=== PATIENT | female | born 1960 | race African-American/Black ===

== ENCOUNTER 2020-06-11 15:06 | Observation (INO) | payer MEDICARE, SELFPAY ==
[2020-06-11] VITALS (15 sets, daily range): BP systolic 143–189; BP diastolic 87–107; PULSE 79–90; RESP 14–18; TEMP 36.2–37.2; O2SAT 96–100; BMI 27.6; BMI 45.7
--- NOTE | 2020-06-11 15:20 | EKG12_ITS ---
Test Reason : CP ADMISSION Blood Pressure : / mmHG Vent. Rate : 083 BPM Atrial Rate : 083 BPM P-R Int : 294 ms QRS Dur : 088 ms QT Int : 420 ms P-R-T Axes : 062 -46 053 degrees QTc Int : 493 ms Sinus rhythm with 1st degree A-V block Left axis deviation Prolonged QT Poor R- wave progression Abnormal ECG Confirmed by TG POST, KATHE ([id number]), online editor SUMMER STEVENS ([id number]) on 06/13/2020 9:01:30 AM Referred By: Confirmed By:KATHE MAS MD
--- NOTE | 2020-06-11 15:20 | ED.VIS.GEN ---
History of Present Illness Chief Complaint: Chest Pain Informant: Patient Narrative: 59 year-old female presents with concern for chest pain. States it began approximately 4 hours ago. States it awoke her from sleep with a coughing fit. States that she has not been coughing until this time. States that she was then laying there and had severe nausea and vomited twice. States that she continues to have this burning pain in her center of her chest. Admits to mild shortness of breath. Denies any fever, chills, cough, abdominal pain, urinary symptoms prior to this morning. Is a current smoker. Past Medical History - Allergies and Home Meds Allergies/Adverse Reactions: Allergies codeine Allergy (Verified 08/15/13 11:47) Itching Primary Care Physician: Rach Gaona MD [Primary Care Provider] - Smoking Status: Current every day smoker Review of Systems General: Denies: Chills, Fever, Sweats Eyes: Denies: Visual changes - bilaterally, Diplopia ENT: Denies: Rhinorrhea, Sore throat Cardiovascular: Reports: Chest pain. Denies: Palpitations Respiratory: Reports: Dyspnea. Denies: Cough, Dyspnea on exertion Gastrointestinal: Denies: Abdominal pain, Nausea, Vomiting, Diarrhea, Melena, Hematochezia Genitourinary: Denies: Dysuria, Hematuria, Frequency Musculoskeletal: Denies: Back pain, Extremity Pain Skin: Denies: Rash, Wounds Neurological: Denies: Headache, Weakness, Numbness Physical Exam Inital Vital Signs reviewed: Yes General: Well nourished, Well developed, No Acute Distress Head: Normocephalic, Atraumatic Eyes: Perrl, EOMI ENT: Moist mucous membranes, No rhinorrhea Neck: Supple, Nontender Cardiovascular: Regular rate, Regular rhythm, No murmurs Respiratory: No distress, CTA bilaterally, Chest nontender Abdomen: Soft, Nontender, Nondistended, Normal bowel sounds Back: Nontender, Normal Inspection Extremities: Nontender, No edema Skin: Normal color, No rash Neurological: Alert, Oriented x3, Cranial nerves II-XII grossly intact, Normal Strength, Normal Sensation Psychological: Normal affect, Normal Mood Diagnostic/Tx/Re-eval Chest X-Ray - ED: 1 View, Read by ED Physician, Read by Radiologist, Cardiomegaly Clinical Impression(s) from Imaging Studies Chest X-Ray 06/11/20 15:35 IMPRESSION: Borderline cardiomegaly. Electronically Signed: Lucius Cohen MD at 15:53 EST , Service support , Laboratory Data 06/11/20 06/11/20 15:25 15:25 WBC 7.5 RBC 4.79 Hgb 12.4 Hct 39.4 MCV 82.3 MCH 25.9 L MCHC 31.5 L RDW Std Deviation 42.0 RDW Coeff of Ross 14.1 Plt Count 310 MPV 8.8 Immature Gran % (Auto) 0.100 Neut % (Auto) 35.5 L Lymph % (Auto) 52.9 H [place] % (Auto) 7.5 Eos % (Auto) 3.6 Baso % (Auto) 0.4 Absolute Neuts (auto) 2.7 Absolute Lymphs (auto) 3.97 Nucleated RBC % 0 Sodium 138 Potassium 3.1 L Chloride 104 Carbon Dioxide 30.0 Anion Gap 4 L BUN 15 Creatinine 0.94 Estim Creat Clear Calc 50.97 Est GFR (MDRD) Af Amer 78 Est GFR (MDRD) Non-Af 64 BUN/Creatinine Ratio 15.9 Glucose 137 H Calcium 8.9 Troponin I < 0.015 - Rhythm Strip Rhythm Strip: Sinus Rhythm Rate: 84 Ectopy: None - EKG Initial EKG Interpretation: Sinus Rhythm - Normal sinus rhythm at 84 bpm. First-degree AV block with a VT interval of 266 ms. QTC of 486 ms. No evidence of acute ischemia. - Medical Decision Making Patient appears well and nontoxic. EKG shows no significant ischemia just some nonspecific ST changes. Initial troponin negative. Chest x-ray shows mild cardiomegaly which was interpreted by myself. Radiology concurs. Patient was given aspirin as well as nitroglycerin. The nitroglycerin did not resolve the patient's chest pain. Given the patient's age as well as comorbidities she will be admitted for further treatment and evaluation. Patient stable at time of admission. Impression: 1. Chest pain ED Disposition - Plan for ED Patient: Disposition: Acute Care Hospital [facility] Referrals: Rach Gaona MD [Primary Care Provider] -
--- NOTE | 2020-06-11 15:35 | RAD_ITS ---
STUDY: X-RAY CHEST REASON FOR EXAM: Female, 59 years old. Epigastric chest pain after coughing -- increased fatigue and sob TECHNIQUE: Single AP portable view of the chest. COMPARISON: None. FINDINGS: EKG electrodes are seen. The lungs are clear and expanded. There is no demonstrated pleural abnormality. There is borderline cardiomegaly. Normal mediastinum and dori. Normal visualized pulmonary arteries. Normal visualized aortic arch and descending thoracic aorta. Normal visualized thoracic spine. Normal visualized ribs, clavicles, and shoulders. There is no demonstrated abnormality of the visualized soft tissue structures of the upper abdomen. RAD/Chest 1 View (Portable) IMPRESSION: Borderline cardiomegaly. Electronically Signed: Lucius Cohen MD at 15:53 EST , Service support ,
[2020-06-11 15:45] LABS: Absolute Lymphocyte Count 3.97 X10^3/uL (0.83-4.51); Absolute Neutrophil Count 2.7 X10^3/uL (2.0-7.7); Basophil# 0.03 X10^3/uL; Basophil% 0.4 % (0-1); Eosinophil# 0.27 X10^3/uL; Eosinophils% 3.6 % (0-5); Hematocrit 39.4 % (37-47); Hemoglobin 12.4 g/dL (12.0-15.0); Lymphocyte # 3.97 X10^3/ul (4.0); Lymphocyte % 52.9 % (19-41); Mean Corp Hgb Conc 31.5 g/dL (32-36); Mean Corpuscular Hgb 25.9 pg (27.0-32.0); Mean Corpuscular Volume 82.3 fL (81-99); Mean Platelet Vol. 8.8 fl (6.2-12.0); Monocyte# 0.56 X10^3/uL; Monocyte% 7.5 % (0-10); NRBC Flagged by Analyzer 0 % (0-5); Neutrophil # 2.67 X10^3/uL (2.7-7.7); Neutrophil % 35.5 % (47-70); Platelet Count 310 K/mm3 (150-450); RBC Distribution Width CV 14.1 % (11.6-14.6); Red Blood Count 4.79 M/mm3 (4.2-5.4); White Blood Count 7.5 K/mm3 (4.4-11.0)
[2020-06-11 15:57] LABS: Anion Gap 4 (5-15); BUN 15 mg/dL (7-18); BUN/Creat Ratio 15.9 RATIO (10-20); Calcium,Total 8.9 mg/dL (8.5-10.1); Chloride 104 mmol/L (98-107); Creatinine, Serum 0.94 mg/dL (0.55-1.02); EST Glomerular Filtration Rate 64 mL/min (>60); Est Glom Filt Rate - Afr Amer 78 mL/min (>60); Estimated Creatinine Clearance 50.97 ml/min; Glucose 137 mg/dL (74-106); Potassium 3.1 mmol/L (3.5-5.1); Sodium Level 138 mmol/L (136-145)
[2020-06-11] MEDS: Nitroglycerin SL (ED/IMG/CATH) 0.4 MG TABLET SUBLINGUAL ×3 (16:06→16:19)
[2020-06-11] MEDS: Aspirin 81 MG TAB.CHEW 324 MG PO (16:06)
--- NOTE | 2020-06-11 16:48 | HP.PCM_ITS ---
Problem List (1) Atypical chest pain Status: Acute (2) Hypertension Status: Chronic (3) Anxiety and depression Status: Chronic (4) Chronic back pain Status: Chronic (5) Hiatus hernia Status: Chronic History of Present Illness Date of Admission: 06/11/20 Chief Complaint: Chest pain The patient is a 59 year old F with history of hypertension came to ED with chest pain. This started with bout of cough but woke her up in the morning and then she felt nauseated and vomited clear gastric content. After that, she had burning chest pain from epigastrium, retrosternal and mild shortness of breath. She denies history of precipitating, exacerbating or relieving factors. Pain was localized with no radiation. In ED, triage vitals shows uncontrolled hypertension, blood pressure 183/105, heart rate 86/min. No hypoxia or tachypnea. Chest x-ray shows mild cardiomegaly. EKG normal sinus rhythm with first-degree AV block, LAD, QTC 486 ms. Previous EKG was in January 2010 showed sinus rhythm with QTC 471 ms. Rapid SARS-CoV-2 antigen negative. Patient denies previous history of coronary artery disease, cardiac stent. She had a stress test many years ago and verbally negative as per patient. She also had EGD and colonoscopy about 5 years ago and was told she had hiatus hernia. Past Medical History Past Medical History (Chronic Problems): Chronic Problems Hypertension (Chronic) Anxiety and depression (Chronic) Chronic back pain (Chronic) Hiatus hernia (Chronic) Allergies codeine Allergy (Verified 08/15/13 11:47) Itching Home Medications: Ambulatory Orders Medication Instructions Recorded Amitriptyline HCl [Elavil] 50 mg PO DAILY 08/15/13 Amlodipine [Norvasc] 10 mg PO DAILY 08/15/13 Aspirin [Aspirin, Baby] 81 mg PO DAILY@0800 08/15/13 Biotin 300 mcg PO DAILY 08/15/13 Buspirone HCl [Buspar] 20 mg PO DAILY 08/15/13 Clonazepam [Klonopin] 1 mg PO QHS PRN PRN 08/15/13 Cyanocobalamin [Vitamin B12] 1,000 mcg PO DAILY@0800 08/15/13 Diclofenac Sodium [Voltaren] 100 gm TP PRN PRN 08/15/13 Duloxetine Hcl [Cymbalta] 20 mg PO DAILY 08/15/13 Estradiol [Estrace] 2 mg PO DAILY 08/15/13 Gabapentin [Neurontin] 600 mg PO TIDCM 08/15/13 Meloxicam [Mobic] 15 mg PO DAILY 08/15/13 Metoprolol Tartrate [Lopressor 12.5 mg PO DAILY 08/15/13 (Beta Josie)] Montelukast [Singulair] 10 mg PO DAILY 08/15/13 Omeprazole [Prilosec] 20 mg PO DAILY 08/15/13 Oxycodone HCl/Acetaminophen 1 - 2 tablet PO Q4H PRN PRN 08/15/13 [Percocet 10-325 mg Tablet] Tizanidine HCl [Zanaflex] 4 mg PO Q6H 08/15/13 Cephalexin [Keflex] 500 mg PO Q12 06/11/20 Doxycycline 100 mg PO TID 06/11/20 Sertraline HCl [Zoloft] 100 mg PO QHS 06/11/20 Smoking Status: Current every day smoker Review of Systems Constitutional: Denies: Chills, Fever, Weight Change HEENT: Denies: Head Aches, Sinus Congestion, Sinus Drainage Cardiovascular: Reports: Chest Pain. Denies: Palpitations Respiratory: Reports: Cough, Shortness of Breath. Denies: Shortness of breath at rest, Sputum production Gastrointestinal: Reports: Abdominal Pain - Mild epigastric abdominal pain, Nausea, Vomiting. Denies: Constipation, Diarrhea, Hematemesis, Hematochezia, Melena Genitourinary: Denies: Dysuria, Frequency, Hematuria, Hesitancy Musculoskeletal: Denies: Joint Pain, Joint Tenderness Skin: Denies: Rash, Wounds Neurological: Denies: Numbness, Tingling, Focal weakness Psychiatric: Reports: Anxiety, Depression. Denies: Homicidal Ideations, Suicidal Ideations Hematologic/ Lymphatic: Denies: Easy Bruising, Easy Bleeding VTE Information - Inpt Only VTE Present on Admission: No VTE Mechan Device Prophylaxis: None VTE Pharm Prophylaxis ordered?: Yes Objective: Physical exam General: Alert, Oriented x3, Cooperative HEENT: Atraumatic, PERRLA, EOMI, Normocephalic Oral: No Gingival or Mucosal Lesions/ Ulcerations Neck: Supple, No JVD, Negative Carotid Bruits Lungs: Air entry diminished in bilateral lung bases. No crepitation/rhonchi Cardiovascular: Regular rate, Regular Rhythm, Normal S1, Normal S2, No murmurs Abdomen: Mild deep tenderness in epigastric. Bowel Sounds Present, Soft, Non- Distended : No renal angle tenderness. No suprapubic tenderness. Extremities: No edema, Capillary Refill Less than 3 Seconds Skin: No rashes, No breakdown Musculoskeletal: No Tenderness to Palpation of Joints or Extremities Neurological: Cranial nerves II-XII grossly intact, Deep Tendon Reflexes 2+/4 and Symmetrical, Neuro grossly intact Psych/Mental Status: Normal Affect, Appropriate. - Physical Exam Vitals/I&O's: Vital Signs Temp Pulse Resp BP Pulse Ox 97.1 F L 86 14 183/105 H 100 06/11/20 16:09 06/11/20 16:19 06/11/20 16:09 06/11/20 16:19 06/11/20 16:09 Oxygen Delivery Method Room Air Weight: 151 lb 0.266 oz Body Mass Index (BMI) 27.6 Microbiology Past 72 Hours 06/11/20 15:25 Mucosa - Nose SARS-CoV-2 Antigen (Rapid) - Final Laboratory Results 06/11/20 15:25: WBC 7.5, RBC 4.79, Hgb 12.4, Hct 39.4, MCV 82.3, MCH 25.9 L, MCHC 31.5 L, RDW Std Deviation 42.0, RDW Coeff of Ross 14.1, Plt Count 310, MPV 8.8, Immature Gran % (Auto) 0.100, Neut % (Auto) 35.5 L, Lymph % (Auto) 52.9 H, [place] % (Auto) 7.5, Eos % (Auto) 3.6, Baso % (Auto) 0.4, Absolute Neuts (auto) 2.7, Absolute Lymphs (auto) 3.97, Nucleated RBC % 0 06/11/20 15:25: Sodium 138, Potassium 3.1 L, Chloride 104, Carbon Dioxide 30.0, Anion Gap 4 L, BUN 15, Creatinine 0.94, Estim Creat Clear Calc 50.97, Est GFR (MDRD) Af Amer 78, Est GFR (MDRD) Non-Af 64, BUN/Creatinine Ratio 15.9, Glucose 137 H, Calcium 8.9, Troponin I < 0.015 06/11/20 15:25: B-Natriuretic Peptide Pending Assessment/Plan All Active Problems Atypical chest pain (Acute) The patient is a 59 year old F with history of hypertension came to ED with chest pain. 1. Atypical chest pain most probably GERD/gastritis with history of hiatus hernia, rule out ACS: Patient is being admitted in PCU. Cycle troponin. Repeat EKG. Patient prefers pharmacological nuclear stress test therefore ordered. Protonix 40 mg IV 1 dose and then oral from tomorrow a.m. Patient will need outpatient EGD. She takes Prilosec 20 mg daily at home. On baby aspirin at home. DESIRE risk score is 2. 2. Uncontrolled hypertension: Blood pressure 183/105. Patient on amlodipine 10 mg daily, hold if heart rate less than 60/min and if persistently low between 60-70/m, can decrease the dose to 25 mg twice daily in consultation his PCP. 3. GERD/hiatus hernia: As mentioned above 4. Anxiety and depression chronic pain: Patient on duloxetine, Klonopin, Neurontin, Percocet, sertraline and tizanidine. Will hold sertraline as QTC is mildly prolonged 486 seconds. VT prophylaxis on Lovenox 40 mg subcu daily. Living will/advanced directive/end of life care: Patient does not have living will or advanced directive or DURABLE POWER OF [employer]PERATIONS AGENT. Her is power of civil litigation attorney as said by the patient. After discussion of benefits/risks procedures involved with full code, DNR CC arrest and DNR CC, the patient opted for DNR-CC Arrest with no intubation Patient does not want artificial life support including intubation, tube feed, ventilator and/chest compression, central venous catheter, vasopressor and DC shock if needed Total time spent in [id number] encounter in discussion of advanced directive 16 minutes. OBSV E&M: 58533 Initial observation care L3 Procedures: 88098 Advncd Care Plan 30 Min
[2020-06-11 17:07] LABS: BNP,B-Type NATRIURETIC PEPTIDE 17.3 pg/mL (0-100)
[2020-06-11] MEDS: Mag Hydrox/Al Hydrox/Simeth 30 ML UDC PO ×2 (17:11→21:30)
--- NOTE | 2020-06-11 17:36 | EKG12_ITS ---
Test Reason : CP Blood Pressure : / mmHG Vent. Rate : 084 BPM Atrial Rate : 084 BPM P-R Int : 266 ms QRS Dur : 086 ms QT Int : 412 ms P-R-T Axes : 065 -37 057 degrees QTc Int : 486 ms Sinus rhythm with 1st degree A-V block Left axis deviation Poor R wave progression Prolonged QT Abnormal ECG Confirmed by TG POST, KATHE ([id number]), writer editor DREW DRAKE ([id number]) on 06/14/2020 9:27:43 AM Referred By: AKASH Confirmed By:KATHE MAS MD
[2020-06-11] MEDS: Enoxaparin 40 MG/0.4 ML Syringe SC (18:42)
[2020-06-11] MEDS: hydroCHLOROthiazide 25 MG Tablet PO (18:42)
[2020-06-11] MEDS: Aspirin 81 MG TAB.CHEW PO (20:33)
[2020-06-11] MEDS: Gabapentin 300 MG Capsule PO (21:10)
[2020-06-11] MEDS: busPIRone 15 MG TABLET 30 MG PO (21:10)
[2020-06-11] MEDS: Montelukast 10 MG Tablet PO (21:10)
[2020-06-11] MEDS: Amitriptyline 25 MG Tablet 50 MG PO (21:11)
[2020-06-11] MEDS: tiZANidine HCl 2 MG Tablet 6 MG PO (21:11)
--- NOTE | 2020-06-11 22:58 | PCS.PANDOC ---
PANDEMIC DOCUMENTATION INITIATED: Date: 06/11/20 Time: 1899
--- NOTE | 2020-06-11 23:32 | NURSING ---
Pt having chest pain; stat ekg ordered. Patient refused nitro prn stating it was not effective earlier in ER and now she has a headache. RN will offer pt prn morphine and await ekg.
--- NOTE | 2020-06-11 23:33 | NURSING ---
Pt now states that pain is not chest pain, but pain that starts in her throat/esophagus and travels down. Pt refusing morphine also unless it will help with the burning.
[2020-06-12] VITALS (11 sets, daily range): BP systolic 163–192; BP diastolic 95–113; PULSE 87–107; RESP 12–18; TEMP 36.6–37.1; O2SAT 95–100
[2020-06-12] MEDS: Mag Hydrox/Al Hydrox/Simeth 30 ML UDC PO (04:46)
[2020-06-12] MEDS: hydrALAZINE 20 MG/ML Vial 10 MG IV ×2 (04:56→14:56)
[2020-06-12] MEDS: 0.9% Saline Lock 10 ML Syringe IV ×2 (05:00→12:01)
--- NOTE | 2020-06-12 05:55 | EKG12_ITS ---
Test Reason : AM EKG Blood Pressure : / mmHG Vent. Rate : 100 BPM Atrial Rate : 100 BPM P-R Int : 206 ms QRS Dur : 088 ms QT Int : 360 ms P-R-T Axes : 066 -44 060 degrees QTc Int : 464 ms Normal sinus rhythm Left axis deviation Poor R- wave progression Abnormal ECG Confirmed by TG POST, KATHE ([id number]), graphics editor SUMMER STEVENS ([id number]) on 06/13/2020 8:59:09 AM Referred By: DR MCDONALD Confirmed By:KATHE MAS MD
[2020-06-12 06:56] LABS: Anion Gap 7 (5-15); BUN 11 mg/dL (7-18); Chloride 102 mmol/L (98-107); Cholesterol 280 mg/dL (200); Creatinine, Serum 0.73 mg/dL (0.55-1.02); EST Glomerular Filtration Rate 86 mL/min (>60); Est Glom Filt Rate - Afr Amer 104 mL/min (>60); Estimated Creatinine Clearance 65.63 ml/min; Glucose 129 mg/dL (74-106); High Density Lipoprotein 41 mg/dL; Magnesium 1.6 mg/dL (1.6-2.6); Potassium 3.1 mmol/L (3.5-5.1); Sodium Level 137 mmol/L (136-145); Thyroid Stim Hormone (TSH) 0.88 uIU/mL (0.358-3.74); Triglycerides 323 mg/dL; Very Low Density Lipoprotein 65 mg/dL (5-40)
[2020-06-12 08:18] LABS: Hemoglobin A1c 6.8 % (3.8-5.6)
--- NOTE | 2020-06-12 10:59 | STRESSREP_ITS ---
Stress Test Report Date: 06-12-2020 Procedure: Pharmacologic stress nuclear imaging study Indications: Chest pain Consent: Per the patient Procedure: The patient underwent pharmacologic (Regadenoson 0.4mg ) evaluation with a peak heart rate of 112 beats per minute (69%predicted maximal heart rate) and a peak blood pressure of 152/70 mmHg. The baseline ECG demonstrated normal sinus rhythm. The peak pharmacologic ECG demonstrated no obvious ECG changes. There were no cardiac dysrhythmias pretest, during pharmacologic infusion, or recovery. There was no complaint of chest discomfort during pharmacologic infusion or recovery. The examination was discontinued secondary to completion of protocol. Impression: 1. Pharmacologic (Regadenoson) evaluation 2. Peak pharmacologic ECG with no obvious ECG changes. 3. There were no cardiac dysrhythmias pretest, during pharmacologic infusion, or recovery. 4. Nuclear images pending Myocardial perfusion imaging study: Technique: The patient was injected with 11.5 millicuries of technetium 99m Cardiolite and subsequently rest SPECT Cardiolite nuclear imaging was obtained in the horizontal long, vertical long, and short axis views. The patient underwent pharmacologic (Regadenoson) evaluation with a peak heart rate of 112 beats per minute (69% percent predicted maximal heart rate) and a peak blood pressure of 152/70 mmHg. The patient was injected with 33.1 millicuries of technetium 99m Cardiolite and subsequently stress SPECT Cardiolite nuclear imaging was obtained in the horizontal long, vertical long, and short axis views. A gated Cardiolite study at peak stress was obtained. Interpretation: Rest and stress SPECT Cardiolite nuclear imaging status post realignment, normalization, and attenuation correction demonstrate relative uniform tracer uptake and myocardial perfusion appearing within normal limits. There is end systolic thickening and brightening. The gated Cardiolite study demonstrates myocardial thickening and inward wall motion. The reported LVEF is 66%. Impression: 1. Relative uniform tracer uptake and myocardial perfusion appearing within normal limits. 2. The gated Cardiolite study reports an LVEF of 66%. This note was generated with [employer] software. It may contain incorrect words, spelling, and punctuation that were not noted in checking the note before signing.
[2020-06-12] MEDS: dilTIAZem CD 180 MG Capsule PO (11:45)
[2020-06-12] MEDS: Pantoprazole Sodium 40 MG Tablet PO (11:45)
[2020-06-12] MEDS: busPIRone 15 MG TABLET 30 MG PO (11:45)
[2020-06-12] MEDS: Gabapentin 300 MG Capsule PO (11:45)
[2020-06-12] MEDS: DULoxetine Hcl 20 MG Capsule PO (11:46)
[2020-06-12] MEDS: Metoprolol Tartrate 25 MG Tablet 12.5 MG PO (11:46)
[2020-06-12] MEDS: hydroCHLOROthiazide 25 MG Tablet PO (11:46)
[2020-06-12] MEDS: proCHLORPERazine 10 MG/2 ML Vial 5 MG IV (12:00)
--- NOTE | 2020-06-12 12:46 | DCINST_ITS ---
- Discharge Diagnoses Current Active Problems: Current Active and Chronic Problems Atypical chest pain (Acute) Hypertension (Chronic) Anxiety and depression (Chronic) Chronic back pain (Chronic) Hiatus hernia (Chronic) You will use the following diet at home:: No restrictions Your food should be the consistency of: Regular Your liquids should be the consistency of: Regular/Thin Discharge Activity: Return to Normal Activity Weight Bearing Status: Full weight bearing Allergies/Adverse Reactions: Allergies banana Allergy (Verified 06/11/20 17:53) Food Allergy codeine Allergy (Verified 08/15/13 11:47) Itching benzonatate [From Tessalon Perles] Adverse Reaction (Verified 06/11/20 17:53) eye pain Medications to take at Discharge Aspirin [Aspirin, Baby] 81 mg PO DAILY@199908/15/13 Buspirone HCl [Buspar] 30 mg PO BID 08/15/13 Clonazepam [Klonopin] 1 mg PO QHS PRN PRN 08/15/13 Duloxetine Hcl [Cymbalta] 20 mg PO DAILY 08/15/13 Estradiol [Estrace] 2 mg PO DAILY 08/15/13 Meloxicam [Mobic] 15 mg PO DAILY 08/15/13 Montelukast [Singulair] 10 mg PO DAILY 08/15/13 Oxycodone HCl/Acetaminophen [Percocet 10-325 mg Tablet] 1 - 2 tablet PO Q4H PRN PRN 08/15/13 Tizanidine HCl [Zanaflex] 6 mg PO QHS 08/15/13 Amitriptyline HCl 50 mg PO QHS 06/11/20 Cephalexin [Keflex] 500 mg PO Q12H 06/11/20 Collagenase [Santyl] 1 applic TOPICAL DAILY 06/11/20 Diclofenac Sodium 1 applicatio TP DAILY PRN PRN 06/11/20 DiphenhydrAMINE [Benadryl] 25 mg PO TID PRN PRN 06/11/20 Gabapentin [Neurontin] 300 mg PO BID 06/11/20 Hydroxyzine HCl 25 - 50 mg PO Q6H PRN 06/11/20 Mometasone Furoate 1 applicatio TP DAILY 06/11/20 Sertraline HCl [Zoloft] 100 mg PO QHS 06/11/20 Acetaminophen [Tylenol Tablet] 650 mg PO Q6H PRN PRN tablet 06/12/20 Atorvastatin Calcium [Lipitor] 40 mg PO DAILY #30 tab 06/12/20 Diltiazem CD [Cardizem CD] 180 mg PO BID #60 cap 06/12/20 Metoprolol Tartrate [Lopressor (beta bob)] 12.5 mg PO BID #30 tab 06/12/20 Pantoprazole Sodium [Protonix] 40 mg PO DAILY #30 tab 06/12/20 The following prescriptions were given: Diltiazem CD [Cardizem CD] 180 mg PO BID #60 cap Transmission Status: Pending to [id number] Atorvastatin Calcium [Lipitor] 40 mg PO DAILY #30 tab Transmission Status: Pending to [id number] Metoprolol Tartrate [Lopressor (beta bob)] 12.5 mg PO BID #30 tab Transmission Status: Pending to [id number] Pantoprazole Sodium [Protonix] 40 mg PO DAILY #30 tab Transmission Status: Pending to [id number] Primary Care Physician: Rach Gaona MD [Primary Care Provider] - Please follow up with your Primary Care Physician in: next visit Test Results: Test results from this visit will be discussed in further detail at your follow- up appointment, if applicable.
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
--- NOTE | 2020-06-12 14:00 | NURSING ---
skin photo: right thigh
--- NOTE | 2020-06-12 15:08 | NURSING ---
called back plan dc to home all bp meds wereincreased will need follow up with pcp
--- NOTE | 2020-06-13 15:04 | DS.PCM_ITS ---
Discharge Date and Diagnosis - Problem List Patient Problems: Active and Suspected Problems Atypical chest pain (Acute) Date of Admission: 06/11/20 Date of Discharge: 06/12/20 - Primary Discharge Diagnosis Acute Problems: Active Problems #1 chest pain-secondary to reflux esophagitis #2 uncontrolled hypertension #3 reflux esophagitis #4 hyperlipidemia #5 chronic back pain #6 chronic anxiety and depression - Secondary Discharge Diagnosis Chronic Problems: Chronic Problems Hypertension (Chronic) Anxiety and depression (Chronic) Chronic back pain (Chronic) Hiatus hernia (Chronic) Hospital Course and Treatment Consultations 06/11/20 18:16 Consult: Onc/Wound/scanning coordinator Routine Comment: Reason for Consult:: wound to right inner thigh Operations: None Procedures: Nuclear stress test Summary of Care Provided: The patient is a 59 year old F was seen in the emergency room with complaints of chest pain, s patient states she awoke from sleep with coughing fit, she then had nausea and vomiting. Patient complained of burning pain in the center of her chest. Work-up in the emergency room included an EKG which showed no significant ischemic changes, patient's troponin was unremarkable, chest x-ray showed no acute disease. Patient was placed into observation status on PCU, cardiac enzymes were cycled and these remain normal, patient underwent a resting pharmacological nuclear stress test which showed no evidence of reversible ischemia. It was felt that the patient's chest discomfort was probably related to esophageal reflux disease. Patient's lipid profile was abnormal and her blood pressure remained elevated at times during her admission. On 06/12/2020, patient was seen and examined: On examination she appeared in good health and spirits, she does not appear to be in any distress. Vital signs as documented. Skin warm and dry and without overt rashes. Neck without JVD, thyroid appears normal, trachea is midline, neck is supple. Lungs clear, normal air movement was noted. Heart exam notable for regular rhythm, normal sounds and absence of murmurs, rubs or gallops. Abdomen unremarkable and without evidence of organomegaly, masses, or abdominal aortic enlargement, bowel sounds are present in all 4 quadrants, no abdominal tenderness was noted. Extremities nonedematous, no cyanosis was noted, no clubbing was noted. Neuro: Cranial nerves II through XII are grossly intact, no focal motor deficits were noted, sensation to light touch and pinprick is intact, motor exam 5/5 throughout. Psych: Patient is alert and oriented x3, she does not appear anxious or depressed, she does not appear agitated. Patient was felt to be stable for discharge to home on 06/12/2020, her medications were adjusted at the time of discharge and she was urged to follow-up with her PCP regarding her elevated blood pressure. Patient Problems: Active and Suspected Problems Atypical chest pain (Acute) - Physical Exam Vitals/I&O's: Vital Signs Temp Pulse Resp BP Pulse Ox 98.7 F 106 H 16 185/107 H 97 06/12/20 16:05 06/12/20 16:05 06/12/20 16:05 06/12/20 16:05 06/12/20 16:05 Oxygen Delivery Method Room Air Weight: 113.398 kg Body Mass Index (BMI) 45.7 Intake and Output for Last 24 Hours 06/11/20 06/12/20 06/13/20 23:59 23:59 23:59 Intake Total 600 / 600 120 / 120 Balance 600 / 600 120 / 120 Microbiology Past 72 Hours 06/11/20 15:25 Mucosa - Nose SARS-CoV-2 Antigen (Rapid) - Final Discharge Activity: Return to Normal Activity Weight Bearing Status: Full weight bearing Home Medications: Medications to take at Discharge Aspirin [Aspirin, Baby] 81 mg PO DAILY@199908/15/13 Buspirone HCl [Buspar] 30 mg PO BID 08/15/13 Clonazepam [Klonopin] 1 mg PO QHS PRN PRN 08/15/13 Duloxetine Hcl [Cymbalta] 20 mg PO DAILY 08/15/13 Estradiol [Estrace] 2 mg PO DAILY 08/15/13 Meloxicam [Mobic] 15 mg PO DAILY 08/15/13 Montelukast [Singulair] 10 mg PO DAILY 08/15/13 Oxycodone HCl/Acetaminophen [Percocet 10-325 mg Tablet] 1 - 2 tablet PO Q4H PRN PRN 08/15/13 Tizanidine HCl [Zanaflex] 6 mg PO QHS 08/15/13 Amitriptyline HCl 50 mg PO QHS 06/11/20 Cephalexin [Keflex] 500 mg PO Q12H 06/11/20 Collagenase [Santyl] 1 applic TOPICAL DAILY 06/11/20 Diclofenac Sodium 1 applicatio TP DAILY PRN PRN 06/11/20 DiphenhydrAMINE [Benadryl] 25 mg PO TID PRN PRN 06/11/20 Gabapentin [Neurontin] 300 mg PO BID 06/11/20 Hydroxyzine HCl 25 - 50 mg PO Q6H PRN 06/11/20 Mometasone Furoate 1 applicatio TP DAILY 06/11/20 Sertraline HCl [Zoloft] 100 mg PO QHS 06/11/20 Acetaminophen [Tylenol Tablet] 650 mg PO Q6H PRN PRN tab 06/12/20 Atorvastatin Calcium [Lipitor] 40 mg PO DAILY #30 tab 06/12/20 Diltiazem CD [Cardizem CD] 180 mg PO BID #60 cap 06/12/20 Metoprolol Tartrate [Lopressor (beta bob)] 12.5 mg PO BID #30 tab 06/12/20 Pantoprazole Sodium [Protonix] 40 mg PO DAILY #30 tab 06/12/20 Following Prescriptions Were Given to Patient: Diltiazem CD [Cardizem CD] 180 mg PO BID #60 cap Transmission Status: Received by [facility]/pharmacy #[id number] Atorvastatin Calcium [Lipitor] 40 mg PO DAILY #30 tab Transmission Status: Received by [facility]/pharmacy #[id number] Metoprolol Tartrate [Lopressor (beta bob)] 12.5 mg PO BID #30 tab Transmission Status: Received by [facility]pharmacy #[id number] Pantoprazole Sodium [Protonix] 40 mg PO DAILY #30 tab Transmission Status: Received by [facility]/pharmacy #[id number] Primary Care Physician: Rach Gaona MD [Primary Care Provider] - Please follow up with your Primary Care Physician in: next visit Disposition: Home Minutes spent on discharge:: 30 Patient Condition:: Stable Medical Necessity - Tobacco Use Smoking Status: Current every day smoker Tobacco Use: Cigarettes Meaningful Use Info Meaningful Use Diagnoses (Choose all that apply): None applicable OBSV E&M: 99256 Observation care discharge
== END 2020-06-12 12:46 | disposition home or self-care (01) ==
LOC: ED 16:55 → PCU 17:00
PROVIDERS: Admitting Provider Internal Medicine; Emergency Provider Emergency Medicine; PCP Internal Medicine; Visit Provider Internal Medicine
DX: K21.00 Gastro-esophageal reflux disease with esophagitis, without bleeding (principal); R06.02 Shortness of breath; Z23 Encounter for immunization; F17.210 Nicotine dependence, cigarettes, uncomplicated; I44.0 Atrioventricular block, first degree; I10 Essential (primary) hypertension; F41.9 Anxiety disorder, unspecified; K44.9 Diaphragmatic hernia without obstruction or gangrene; R73.9 Hyperglycemia, unspecified; F32.9 Major depressive disorder, single episode, unspecified; G89.29 Other chronic pain; Z79.899 Other long term (current) drug therapy; Z79.82 Long term (current) use of aspirin; E78.5 Hyperlipidemia, unspecified; S71.101A Unspecified open wound, right thigh, initial encounter; X58.XXXA Exposure to other specified factors, initial encounter
CPT/HCPCS: 36415; 71045; 78452; 80048; 80061; 83036; 83735; 83880; 84443; 84484; 85025; 87426; 93005; 93017; 96365; 96372; 96375; 96376; 99218; 99285; 99406; A9500; 90686; A4216; G0378; J2785

== ENCOUNTER 2021-03-25 20:15 | Emergency (ER) | payer MEDICARE, SELFPAY ==
[2021-03-25 20:17] VITALS: BP 232/125; PULSE 101; RESP 22; TEMP 36.4; O2SAT 98; BMI 28.3
[2021-03-25 21:13] VITALS: BP 221/118; PULSE 88; RESP 17
--- NOTE | 2021-03-25 21:24 | RAD_ITS ---
STUDY: X-RAY CHEST REASON FOR EXAM: Female, 60 years old. Cardiomegaly. TECHNIQUE: Single AP portable view of the chest. COMPARISON: 06/11/2020. FINDINGS: The lungs are clear and expanded. There is no demonstrated pleural abnormality. Normal size heart. Normal mediastinum and dori. Normal visualized pulmonary arteries. Normal visualized aortic arch and descending thoracic aorta. Normal visualized thoracic spine. Normal visualized ribs, clavicles, and shoulders. There is no demonstrated abnormality of the visualized soft tissue structures of the upper abdomen. RAD/Chest 1 View (Portable) IMPRESSION: No acute cardiopulmonary disease or major interval change. Electronically Signed: Marito Tucker DO at 23:08 EST Tel [phone], Service support ,
--- NOTE | 2021-03-25 21:25 | EKG12_ITS ---
Test Reason : HYPERTENSION Blood Pressure : / mmHG Vent. Rate : 088 BPM Atrial Rate : 088 BPM P-R Int : 256 ms QRS Dur : 082 ms QT Int : 398 ms P-R-T Axes : 070 -19 046 degrees QTc Int : 481 ms Sinus rhythm with 1st degree A-V block Prolonged QT Abnormal ECG Confirmed by DARRELL POST, FRANCK ([id number]), news videotape editor DREW DRAKE ([id number]) on 03/29/2021 7:22:56 AM Referred By: PL Confirmed By:FRANCK RAMÍREZ MD
[2021-03-25] MEDS: dilTIAZem CD 180 MG Capsule PO (21:44)
[2021-03-25 21:54] LABS: Basophil# 0.03 X10^3/uL; Basophil% 0.3 % (0-1); Eosinophil# 0.14 X10^3/uL; Eosinophils% 1.6 % (0-5); Hemoglobin 12.7 g/dL (12.0-15.0); Lymphocyte % 46.1 % (19-41); Mean Corp Hgb Conc 33.4 g/dL (32-36); Mean Corpuscular Hgb 27.3 pg (27.0-32.0); Mean Corpuscular Volume 81.7 fL (81-99); Mean Platelet Vol. 10.2 fl (6.2-12.0); Monocyte# 0.51 X10^3/uL; Monocyte% 5.9 % (0-10); NRBC Flagged by Analyzer 0 % (0-5); Neutrophil # 3.97 X10^3/uL (2.7-7.7); Neutrophil % 45.8 % (47-70); Platelet Count 257 K/mm3 (150-450); RBC Distribution Width SD 38.5 fl (35.1-43.9); Red Blood Count 4.65 M/mm3 (4.2-5.4); White Blood Count 8.7 K/mm3 (4.4-11.0)
[2021-03-25 22:06] LABS: Anion Gap 6 (5-15); BUN 11 mg/dL (7-18); BUN/Creat Ratio 13.6 RATIO (10-20); Calcium,Total 8.8 mg/dL (8.5-10.1); Chloride 104 mmol/L (98-107); Creatinine, Serum 0.81 mg/dL (0.55-1.02); EST Glomerular Filtration Rate 77 mL/min (>60); Est Glom Filt Rate - Afr Amer 93 mL/min (>60); Estimated Creatinine Clearance 63.78 ml/min; Glucose 143 mg/dL (74-106); Potassium 3.4 mmol/L (3.5-5.1); Sodium Level 139 mmol/L (136-145)
[2021-03-25 22:16] VITALS: BP 180/98; PULSE 82; RESP 18; O2SAT 98
--- NOTE | 2021-03-25 22:36 | EX.ED.DYSGE1 ---
HPI History of Present Illness Chief Complaint: Hypertension Informant: patient and spouse/S.O. Narrative Narrative: Patient presents with elevated blood pressure at home. She was taking her blood pressure in the evening after she went out to eat. She noticed it was quite high. She had not taken her nighttime blood pressure medicine which is diltiazem 180 mg. However, she normally takes it just before bed. She noticed that the tubing on her blood pressure cuff seem to have a leak so she got another cuff and still had an elevated. Therefore she came in for evaluation. She is not having any symptoms at all. She does have a long history of high blood pressure. She is on multiple meds for this. She is also on diclofenac but evidently this is not new. She denies missing any of her blood pressure meds except has not yet taken her evening dose of diltiazem. No dloc-ses-uvcmres decongestants or antihistamines. She is not having chest pain or dyspnea. No edema. She states she feels fine. As she has no symptoms, nothing makes them better or worse. PFSH PFSH Home Medications aspirin 81 mg PO DAILY@199908/15/13 [History Last Taken 06/10/20] buspirone 30 mg PO BID 08/15/13 [History Last Taken 06/11/20] clonazepam 1 mg PO QHS PRN PRN 08/15/13 [History Last Taken 08/15/13] duloxetine 20 mg PO DAILY 08/15/13 [History Last Taken 06/10/20] estradiol [Estrace] 2 mg PO DAILY 08/15/13 [History Last Taken 06/11/20] meloxicam 15 mg PO DAILY 08/15/13 [History Last Taken 06/10/20] montelukast 10 mg PO DAILY 08/15/13 [History Last Taken 06/10/20] oxycodone-acetaminophen [Percocet] 1 - 2 tab PO Q4H PRN PRN 08/15/13 [History Last Taken 06/10/20] tizanidine [Zanaflex] 6 mg PO QHS 08/15/13 [History Last Taken 06/10/20] amitriptyline 50 mg PO QHS 06/11/20 [History Last Taken 06/10/20] diclofenac sodium 1 applicatio TP DAILY PRN PRN 06/11/20 [History Last Taken 06/11/20] diphenhydramine HCl 25 mg PO TID PRN PRN 06/11/20 [History Last Taken 06/10/20] gabapentin 300 mg PO BID 06/11/20 [History Last Taken 06/11/20] hydroxyzine HCl 25 - 50 mg PO Q6H PRN 06/11/20 [History Last Taken 06/11/20] sertraline 100 mg PO QHS 06/11/20 [History Last Taken 06/10/20] acetaminophen 650 mg PO Q6H PRN PRN tab 06/12/20 [Rx Last Taken Unknown] atorvastatin 40 mg PO DAILY #30 tab 06/12/20 [Rx Last Taken Unknown] diltiazem HCl 180 mg PO BID #60 cap 06/12/20 [Rx Last Taken Unknown] pantoprazole 40 mg PO DAILY #30 tab 06/12/20 [Rx Last Taken Unknown] albuterol sulfate [Ventolin HFA] 2 puff INHALATION Q4H PRN PRN #1 inhaler 03/25/21 [Rx Last Taken Unknown] alprazolam 0.5 mg PO DAILY PRN 03/25/21 [History Last Taken Unknown] losartan 25 mg PO DAILY 03/25/21 [History Last Taken Unknown] metoprolol tartrate 75 mg PO DAILY 03/25/21 [History Last Taken Unknown] prazosin 2 mg PO DAILY 03/25/21 [History Last Taken Unknown] Allergy/AdvReac Type Severity Reaction Status Date / Time banana Allergy Food Verified 03/25/21 21:13 Allergy codeine Allergy Itching Verified 03/25/21 21:13 Penicillins Allergy Itching Verified 03/25/21 21:13 benzonatate AdvReac eye pain Verified 03/25/21 21:13 [From Trey Murillo] Social History Smoking Status: Current every day smoker tobacco type: cigarettes ROS ROS ED Constitutional Constitutional ED: Denies chills or fever(s) Eyes Eyes: Denies blurry vision, change in vision or diplopia ENT ENT ED: Denies rhinorrhea Cardiovascular Cardiovascular: Denies chest pain, orthopnea or palpitations Respiratory/Chest Respiratory/Chest: Denies cough, dyspnea or orthopnea Gastrointestinal Gastrointestinal: Denies nausea or vomiting Genitourinary Genitourinary ED: Denies dysuria Musculoskeletal Musculoskeletal: Denies back pain or neck pain Integumentary Denies rash Neurologic Neurologic: Denies headache(s), paresthesias or weakness Endocrine Endocrinology: Denies polydipsia or polyuria Allergic/Immunologic Allergic/Immunologic ED: Denies mouth swelling or urticaria EXAM Physical Exam Const Vital Signs: 03/25/21 20:17 03/25/21 21:13 03/25/21 21:14 Temperature 97.5 F L Temperature Source Temporal Pulse Rate 101 H 88 Respiratory Rate 22 H 17 Respiratory Effort Normal Respiratory Pattern Normal Blood Pressure 232/125 H 221/118 H Blood Pressure Mean 160 152 Pulse Ox 98 Oxygen Delivery Method Room Air 03/25/21 22:16 Temperature Temperature Source Pulse Rate 82 Respiratory Rate 18 Respiratory Effort Respiratory Pattern Blood Pressure 180/98 H Blood Pressure Mean 125 Pulse Ox 98 Oxygen Delivery Method Room Air Positive well nourished and well developed General Appearance ED: well developed and NAD; Negative for cyanotic or diaphoretic HEENT Reports moist mucous membranes Negative for trauma or tenderness Eyes General Eye ED: Negative for pale conjunctiva or scleral icterus Neck no JVD Resp normal respiratory effort and clear to auscultation bilaterally Effort and Inspection: Negative for pain with movement Auscultation: Negative for rales, rhonchi or wheezes Cardio regular rate, regular rhythm and no murmurs GI normal to inspection, nondistended, normoactive bowel sounds and non-tender Palpation: soft Back/Spine no CVA tenderness Extremity normal to inspection General Extremety ED: Negative for edema or tenderness General Extremity: Negative for edema Neuro oriented x3 and no sensory deficits noted Sensorium / Orientation: alert; Negative for orientation impaired, lethargic or stuporous Motor Exam: strength 5/5 throughout; Negative for general weakness Psych mental status grossly normal Skin no rashes or lesions noted and no wounds MDM MDM MDM Narrative Medical decision making narrative: Patient was given her evening time dose of diltiazem. Blood has come down from 232/125-180/98. Blood work shows normal CBC. Electrolytes are normal other than minimally low potassium of 3.4. Her glucose is slightly elevated at 143. She did take her Metformin. Her chest x-ray shows some mild cardiomegaly but unchanged from the past. I went to check the patient. She states she still feels fine. She states she is getting that wheezing. She states somebody wants told her she has COPD but she is not sure what that is. It sounds like she has not been on inhalers but was told these might help. She is wanting to quit smoking. She is evidently talking to her veterans doctor about getting meds to help this. When I listen to her lungs there is just a faint expiratory wheeze that was not there before. Her blood pressure is still down about 180/100. I do not think this is CHF. I will get her breathing treatment here. I will add albuterol inhaler. She will follow up with her physicians for adjustment of her meds. We discussed returning if she is having any chest pain, uncontrolled blood pressure, worsening dyspnea, fevers or other concerns. Lab Data Attestation: I reviewed the patient's lab results. Labs: Laboratory Results - last 24 hr 03/25/21 03/25/21 21:10 21:10 WBC 8.7 RBC 4.65 Hgb 12.7 Hct 38.0 MCV 81.7 MCH 27.3 MCHC 33.4 RDW Std Deviation 38.5 RDW Coeff of Ross 13.0 Plt Count 257 MPV 10.2 Immature Gran % (Auto) 0.300 Neut % (Auto) 45.8 L Lymph % (Auto) 46.1 H [place] % (Auto) 5.9 Eos % (Auto) 1.6 Baso % (Auto) 0.3 Absolute Neuts (auto) 4.0 Absolute Lymphs (auto) 4.00 Nucleated RBC % 0 Sodium 139 Potassium 3.4 L Chloride 104 Carbon Dioxide 29.0 Anion Gap 6 BUN 11 Creatinine 0.81 Estim Creat Clear Calc 63.78 Est GFR (MDRD) Af Amer 93 Est GFR (MDRD) Non-Af 77 BUN/Creatinine Ratio 13.6 Glucose 143 H Calcium 8.8 EKG Initial EKG: Comments: EKG done for high blood pressure read by me shows normal sinus rhythm with slight first-degree AV block and overall rate of 88. No ventricular ectopy. No acute ST elevation or depression. No sign of significant LVH. There is a slightly long AL interval of 256 ms. QRS duration is normal. Very slight prolongation of QTC at 481 ms. Discharge Plan Triage Chief Complaint: Hypertension ED Provider: Margarito Scales Dx/Rx/DC Orders Clinical Impression: Hypertension, COPD (chronic obstructive pulmonary disease) Instructions: COPD: Using Inhalers, ED Hypertension, Established Prescriptions: New albuterol sulfate [Ventolin HFA] 1 INHALER inhaler 2 puff inhalation Q4H PRN PRN (Reason: Wheezing) Qty: 1 RF: 0 No Action tizanidine [Zanaflex] 4 MG tablet 6 mg PO QHS RF: 0 meloxicam 15 MG tablet 15 mg PO DAILY RF: 0 clonazepam 1 MG tablet 1 mg PO QHS PRN PRN (Reason: Pain) RF: 0 oxycodone-acetaminophen [Percocet] 1 EACH tablet 1 - 2 tab PO Q4H PRN PRN (Reason: Pain) RF: 0 buspirone 30 MG tablet 30 mg PO BID RF: 0 aspirin 81 MG tablet,chewable 81 mg PO DAILY@1999 RF: 0 estradiol [Estrace] 2 MG tablet 2 mg PO DAILY RF: 0 montelukast 10 MG tablet 10 mg PO DAILY RF: 0 duloxetine 20 MG capsule 20 mg PO DAILY RF: 0 sertraline 100 MG tablet 100 mg PO QHS RF: 0 diclofenac sodium 100 GM gel 1 applicatio TP DAILY PRN PRN (Reason: arthritis) RF: 0 amitriptyline 50 MG tablet 50 mg PO QHS RF: 0 diphenhydramine HCl 25 MG capsule 25 mg PO TID PRN PRN (Reason: Itching) RF: 0 gabapentin 300 MG capsule 300 mg PO BID RF: 0 hydroxyzine HCl 25 MG tablet 25 - 50 mg PO Q6H PRN (Reason: anxiety/itching) RF: 0 acetaminophen 325 MG tablet 650 mg PO Q6H PRN PRN (Reason: Pain Score 1-10/Temp > 100.7 F) RF: 0 diltiazem HCl 180 MG capsule 180 mg PO BID Qty: 60 RF: 0 pantoprazole 40 MG tablet 40 mg PO DAILY Qty: 30 RF: 0 atorvastatin 40 MG tablet 40 mg PO DAILY Qty: 30 RF: 0 prazosin 1 mg capsule 2 mg PO DAILY RF: 0 alprazolam 0.5 mg tablet 0.5 mg PO DAILY PRN (Reason: Anxiety) RF: 0 losartan 25 mg tablet 25 mg PO DAILY RF: 0 metoprolol tartrate 25 MG tablet 75 mg PO DAILY RF: 0 Primary Care Provider: Rach Gaona Referrals: Rach Gaona MD [Primary Care Provider] - 3-5 Days Disposition Disposition: Home, Self Care
[2021-03-25 23:13] VITALS: BP 207/108; PULSE 84; RESP 16
[2021-03-25 23:21] VITALS: PULSE 86; RESP 12
[2021-03-25] MEDS: Ipratropium/Albuterol Sulfate 3 ML AMPUL.NEB INHALATION (23:21)
== END 2021-03-25 23:34 | disposition home or self-care (01) ==
PROVIDERS: Emergency Provider Emergency Medicine; PCP Internal Medicine
DX: I10 Essential (primary) hypertension (principal); F17.210 Nicotine dependence, cigarettes, uncomplicated; J44.9 Chronic obstructive pulmonary disease, unspecified; Z79.1 Long term (current) use of non-steroidal anti-inflammatories (NSAID); Z79.82 Long term (current) use of aspirin; Z79.899 Other long term (current) drug therapy
CPT/HCPCS: 71045; 80048; 85025; 93005; 94640; 99283; A4216

== ENCOUNTER 2022-01-31 14:39 | Emergency (ER) | payer MEDICARE, SELFPAY ==
[2022-01-31 14:41] VITALS: BP 115/75; PULSE 95; RESP 16; TEMP 36.9; O2SAT 100; BMI 25.1
--- NOTE | 2022-01-31 15:11 | ED.RN ---
PT REPORTS TO TRIAGE TO REPORT TO THIS RN THAT HER FOOD HAS NOT BEEN TASTING RIGHT X A COUPLE DAYS.
--- NOTE | 2022-01-31 16:14 | EDS_ITS ---
HPI History of Present Illness Chief Complaint: Headache Informant: patient Narrative Narrative: 61-year-old female presenting to the emergency room with headache and neck pain. She states that she has been nauseated for a month. She states that she has lost about 10 pounds. She was recently seen at her primary care physician's office and did mention this. She notes nausea continues but has not taken anything for it. She states that yesterday she woke up from sleep with pain in her bilateral neck and pain in her front of her head. She denies any fevers or infectious symptoms or photophobia. She denies any rashes. She states when she tries to move her neck in any direction its painful but especially with rotation. She states that it feels like she slept wrong. She denies any recent insect bites/mosquito bites. No known sick contacts. She is chronically prescribed Percocet, gabapentin and alprazolam according to her [employer] report. PFSH PFS Home Medications aspirin 81 mg chewable tablet 81 mg PO DAILY@199908/15/13 [History Last Taken 06/10/20] buspirone 30 mg tablet 30 mg PO BID 08/15/13 [History Last Taken 06/11/20] clonazepam 1 mg tablet 1 mg PO QHS PRN PRN Pain 08/15/13 [History Last Taken 08/15/13] duloxetine 20 mg capsule,delayed release 20 mg PO DAILY 08/15/13 [History Last Taken 06/10/20] estradiol 2 mg tablet (Estrace) 2 mg PO DAILY 08/15/13 [History Last Taken 06/11/20] meloxicam 15 mg tablet 15 mg PO DAILY 08/15/13 [History Last Taken 06/10/20] montelukast 10 mg tablet 10 mg PO DAILY 08/15/13 [History Last Taken 06/10/20] oxycodone-acetaminophen 10 mg-325 mg tablet (Percocet) 1 - 2 tab PO Q4H PRN PRN Pain 08/15/13 [History Last Taken 06/10/20] tizanidine 4 mg tablet (Zanaflex) 6 mg PO QHS 08/15/13 [History Last Taken 06/10/20] amitriptyline 50 mg tablet 50 mg PO QHS 06/11/20 [History Last Taken 06/10/20] diclofenac sodium 3 % topical gel 1 applicatio TP DAILY PRN PRN arthritis 06/11/20 [History Last Taken 06/11/20] diphenhydramine HCl 25 mg capsule 25 mg PO TID PRN PRN Itching 06/11/20 [History Last Taken 06/10/20] gabapentin 300 mg capsule 300 mg PO BID arthritis 06/11/20 [History Last Taken 06/11/20] hydroxyzine HCl 25 mg tablet 25 - 50 mg PO Q6H PRN anxiety/itching 06/11/20 [History Last Taken 06/11/20] sertraline 100 mg tablet 100 mg PO QHS 06/11/20 [History Last Taken 06/10/20] acetaminophen 325 mg tablet 650 mg PO Q6H PRN PRN Pain Score 1-10/Temp > 100.7 F 06/12/20 [Rx Last Taken Unknown] atorvastatin 40 mg tablet 40 mg PO DAILY #30 tabs 06/12/20 [Rx Last Taken Unknown] diltiazem HCl 180 mg capsule,extended release 24 hr 180 mg PO BID #60 caps 06/12/20 [Rx Last Taken Unknown] pantoprazole 40 mg tablet,delayed release 40 mg PO DAILY #30 tabs 06/12/20 [Rx Last Taken Unknown] albuterol sulfate 90 mcg/actuation aerosol inhaler (Ventolin HFA) 2 puff inhalation Q4H PRN PRN Wheezing ##1 03/25/21 [Rx Last Taken Unknown] alprazolam 0.5 mg tablet 0.5 mg PO DAILY PRN Anxiety 03/25/21 [History Last Taken Unknown] losartan 25 mg tablet 25 mg PO DAILY 03/25/21 [History Last Taken Unknown] metoprolol tartrate 25 mg tablet 75 mg PO DAILY 03/25/21 [History Last Taken Unknown] prazosin 1 mg capsule 2 mg PO DAILY 03/25/21 [History Last Taken Unknown] diazepam 5 mg tablet 5 mg PO Q8 PRN Muscle Spasm #15 tabs 01/31/22 [Rx Last Taken Unknown] ondansetron HCl 4 mg tablet 4 mg PO Q6H PRN nausea and vomiting #20 tabs 01/31/22 [Rx Last Taken Unknown] Allergy/AdvReac Type Severity Reaction Status Date / Time banana Allergy Food Verified 01/31/22 14:39 Allergy codeine Allergy Itching Verified 01/31/22 14:39 Penicillins Allergy Itching Verified 01/31/22 14:39 benzonatate AdvReac eye pain Verified 01/31/22 14:39 [From Trey Murillo] Social History (Updated 01/31/22 @ 16:[address] Jos Neal, DO) Smoking Status: Current every day smoker tobacco type: cigarettes substance use type: does not use ROS ROS ED Constitutional Constitutional ED: Denies chills, fever(s) or weight loss Eyes Eyes: Denies change in vision or diplopia ENT ENT ED: Denies ear pain, rhinorrhea or sore throat Cardiovascular Cardiovascular: Denies chest pain, orthopnea, palpitations or racing heartbeat Respiratory/Chest Respiratory/Chest: Denies cough, dyspnea or orthopnea Gastrointestinal Gastrointestinal: Denies abdominal pain, diarrhea, nausea or vomiting Genitourinary Genitourinary ED: Denies dysuria, hematuria or urinary frequency Musculoskeletal Musculoskeletal: Reports neck pain; Denies arthralgias, back pain or myalgias Integumentary Denies abscess or rash Neurologic Neurologic: Reports headache(s); Denies weakness Psychiatric Psychiatric: Denies anxiety, depression, suicidal ideation or suicidal thoughts Endocrine Endocrinology: Denies polydipsia, polyphagia or polyuria Allergic/Immunologic Allergic/Immunologic ED: Denies mouth swelling, tongue swelling or urticaria EXAM Physical Exam Narrative Exam Narrative: Patient sitting upright in a well lit room. Const Vital Signs: 01/31/22 14:41 Temperature 98.5 F Temperature Source Temporal Pulse Rate 95 Respiratory Rate 16 Blood Pressure 115/75 Blood Pressure Mean 88 Pulse Ox 100 Oxygen Delivery Method Room Air Positive well nourished and well developed General Appearance ED: well developed HEENT Reports normocephalic, head/scalp atraumatic and moist mucous membranes HEENT Narrative: Tympanic membranes obscured by cerumen bilaterally Eyes PERRL and EOMs intact bilaterally Eyes Narrative: She has no photophobia. Neck no lymphadenopathy, supple and no JVD Neck Narrative: Patient has nursing on her bilateral sternocleidomastoids. She has tenderness along the suboccipital triangle musculature. Painful and limitied ROM. Resp normal respiratory effort and clear to auscultation bilaterally Cardio regular rate, regular rhythm and no murmurs GI normal to inspection, nondistended, normoactive bowel sounds and non-tender Palpation: soft Back/Spine no CVA tenderness and normal ROM Extremity normal to inspection General Extremety ED: Negative for edema General Extremity: Negative for edema Neuro oriented x3 and CN's II-XII intact bilaterally Sensorium / Orientation: alert Motor Exam: strength 5/5 throughout Psych mental status grossly normal Mood & Affect: Negative for depressed or tearful Skin no rashes or lesions noted and no wounds MDM MDM MDM Narrative Medical decision making narrative: Clinically the patient does not appear infectious and she appears quite stable and well. She has no meningeal signs or photophobia. Clinically this does not appear to be meningitis. Historically, she woke from sleep with sore neck and now with headache. I think this is most likely torticollis. The patient is prescribed Percocet chronically and just filled the prescription for 150 tablets on 16 January. She is also reportedly taking diflocenac as well as alprazolam and Zanaflex. I asked that she hold the Zanaflex and alprazolam while she is taking Valium for muscle spasm. We will provide her with a soft collar. I will write for Zofran for nausea. She is to follow-up with her primary care doctor in one week. Patient is not experiencing vomiting or diarrhea. The nausea began almost a month before her headache began and I do not think is related. Clinically she has no abdominal pain. I will write for some Zofran. Discharge Plan Triage Chief Complaint: Headache ED Provider: Jos Neal Dx/Rx/DC Orders Clinical Impression: Headache, Torticollis, acute Instructions: Torticollis (Wry Neck) Prescriptions: New diazepam [diazepam] 5 mg tablet 5 mg PO Q8 PRN (Reason: Muscle Spasm) Qty: 15 0RF ondansetron HCl 4 mg tablet 4 mg PO Q6H PRN (Reason: nausea and vomiting) Qty: 20 0RF No Action tizanidine [Zanaflex] 4 MG tablet 6 mg PO QHS meloxicam 15 MG tablet 15 mg PO DAILY clonazepam 1 MG tablet 1 mg PO QHS PRN PRN (Reason: Pain) oxycodone-acetaminophen [Percocet] 1 EACH tablet 1 - 2 tab PO Q4H PRN PRN (Reason: Pain) buspirone 30 MG tablet 30 mg PO BID aspirin 81 MG tablet,chewable 81 mg PO DAILY@2000 estradiol [Estrace] 2 MG tablet 2 mg PO DAILY montelukast 10 MG tablet 10 mg PO DAILY duloxetine 20 MG capsule 20 mg PO DAILY sertraline 100 MG tablet 100 mg PO QHS diclofenac sodium 100 GM gel 1 applicatio TP DAILY PRN PRN (Reason: arthritis) amitriptyline 50 MG tablet 50 mg PO QHS diphenhydramine HCl 25 MG capsule 25 mg PO TID PRN PRN (Reason: Itching) gabapentin 300 MG capsule 300 mg PO BID hydroxyzine HCl 25 MG tablet 25 - 50 mg PO Q6H PRN (Reason: anxiety/itching) acetaminophen 325 MG tablet 650 mg PO Q6H PRN PRN (Reason: Pain Score 1-10/Temp > 100.7 F) 0RF diltiazem HCl 180 MG capsule 180 mg PO BID Qty: 60 0RF pantoprazole 40 MG tablet 40 mg PO DAILY Qty: 30 0RF atorvastatin 40 MG tablet 40 mg PO DAILY Qty: 30 0RF prazosin 1 mg capsule 2 mg PO DAILY alprazolam 0.5 mg tablet 0.5 mg PO DAILY PRN (Reason: Anxiety) losartan 25 mg tablet 25 mg PO DAILY metoprolol tartrate 25 MG tablet 75 mg PO DAILY albuterol sulfate [Ventolin HFA] 1 INHALER inhaler 2 puff inhalation Q4H PRN PRN (Reason: Wheezing) Qty: 1 0RF Primary Care Provider: Rach Gaona Referrals: Rach Gaona MD [Primary Care Provider] - 1 Week Activity Restrictions/Additional Instructions: Please do not take your Zanaflex or alprazolam if you are taking the Valium as they can be additive and result in significant sedation Soft collar as needed for pain. Heat as needed. Please return if worsening or concerns. Disposition Disposition: Home, Self Care
[2022-01-31] MEDS: Ondansetron ODT 4 MG Tablet PO (16:43)
[2022-01-31] MEDS: diazePAM 5 MG Tablet PO (16:43)
[2022-01-31] MEDS: oxyCODONE 5 MG Tablet PO (16:43)
== END 2022-01-31 16:46 | disposition home or self-care (01) ==
LOC: ED 16:26
PROVIDERS: Emergency Provider Emergency Medicine; PCP Internal Medicine; Visit Provider Emergency Medicine
DX: M43.6 Torticollis (principal); F17.210 Nicotine dependence, cigarettes, uncomplicated
CPT/HCPCS: 99283

== ENCOUNTER 2022-03-18 01:21 | Emergency (ER) | payer MEDICARE, SELFPAY ==
[2022-03-18 01:23] VITALS: BP 166/90; PULSE 94; RESP 16; TEMP 36.4; O2SAT 100; BMI 27.0
--- NOTE | 2022-03-18 01:36 | RAD_ITS ---
EXAM: XR CHEST, 1 VIEW CLINICAL INDICATION: chest pain chest pain TECHNIQUE: Frontal view of the chest. This report was created using [employer] report generation technology. COMPARISON: 03/25/2021. FINDINGS: LUNGS AND PLEURAL SPACES: Unremarkable. No consolidation or edema. No pneumothorax. No effusion. HEART: The heart is borderline in size. MEDIASTINUM: Central airways and mediastinal contour are unremarkable. BONES/JOINTS: Unremarkable. SOFT TISSUES: Unremarkable. RAD/Chest 1 View (Portable) IMPRESSION: 1. Borderline heart size. 2. No evidence for acute cardiopulmonary pathology. Electronically Signed: Cj Armendariz MD at 3:31 EST Reading Location ID and State: [facility] / [place] , Service support ,
--- NOTE | 2022-03-18 01:36 | EKG12_ITS ---
Test Reason : CP Blood Pressure : / mmHG Vent. Rate : 091 BPM Atrial Rate : 091 BPM P-R Int : 256 ms QRS Dur : 088 ms QT Int : 396 ms P-R-T Axes : 065 -39 052 degrees QTc Int : 487 ms Sinus rhythm with 1st degree A-V block Left axis deviation Low voltage QRS (Limb Leads) Poor R wave progression Inferior ID, age undetermined Abnormal ECG Confirmed by TG POST, KATHE ([id number]), production editor DREW DRAKE ([id number]) on 03/18/2022 11:36:28 AM Referred By: TARI Confirmed By:KATHE MAS MD
--- NOTE | 2022-03-18 01:54 | ED.VIS.CHEST ---
HPI History of Present Illness Chief Complaint: Chest Pain Informant: patient Onset/Context/Timing Onset: Today Activity at onset: gradual Timing: Continuous Quality: Positive for Aching and Pain Location: Left Parasternal Current Severity: Mild Worsened By: Nothing Relieved By: Nothing Associated Symptoms: Negative for Nausea, Vomiting, Diaphoresis, Dyspnea, Cough, Fever, Lightheadedness, Acid Reflux or Palpitations Narrative Narrative: 61-year-old female history of type 2 diabetes, anxiety, hypertension and is a smoker. She has no history of cardiac disease. She denies any significant family history of MIs or CAD. She does smoke about a pack of cigarettes a day. She has had 2 stress test within the last year and a half. She had 1 done here June 2020 and she had 1 just recently done at the [facility] in the last 2 weeks. Both of which were negative. She denies any exertional dyspnea or exertional chest pain. Tonight she woke up around 1 AM went to the bathroom when she laid back down she has a left-sided chest discomfort. No history of DVT or PE. Its not pleuritic. No hemoptysis. No leg pain or swelling. The pain does not radiate. Prior Similar Symptoms: No Recent Illness/Hospitalization: No CVD Risk Factors: Positive for Hypertension, Diabetes and Smoking; Negative for Family History 1' </=55 PE Risk Factors: Negative for Recent Travel/Surgery, Recent Immobilization, Prior DVT or PE, Cancer or OCP + Smoking + >/=35 TAD Risk Factors: Negative for Marfan's Syndrome [facility] Home Medications aspirin 81 mg chewable tablet 81 mg PO DAILY@199908/15/13 [History Last Taken 06/10/20] buspirone 30 mg tablet 30 mg PO BID 08/15/13 [History Last Taken 06/11/20] clonazepam 1 mg tablet 1 mg PO QHS PRN PRN Pain 08/15/13 [History Last Taken 08/15/13] duloxetine 20 mg capsule,delayed release 20 mg PO DAILY 08/15/13 [History Last Taken 06/10/20] estradiol 2 mg tablet (Estrace) 2 mg PO DAILY 08/15/13 [History Last Taken 06/11/20] meloxicam 15 mg tablet 15 mg PO DAILY 08/15/13 [History Last Taken 06/10/20] montelukast 10 mg tablet 10 mg PO DAILY 08/15/13 [History Last Taken 06/10/20] oxycodone-acetaminophen 10 mg-325 mg tablet (Percocet) 1 - 2 tab PO Q4H PRN PRN Pain 08/15/13 [History Last Taken 06/10/20] tizanidine 4 mg tablet (Zanaflex) 6 mg PO QHS 08/15/13 [History Last Taken 06/10/20] amitriptyline 50 mg tablet 50 mg PO QHS 06/11/20 [History Last Taken 06/10/20] diclofenac sodium 3 % topical gel 1 applicatio TP DAILY PRN PRN arthritis 06/11/20 [History Last Taken 06/11/20] diphenhydramine HCl 25 mg capsule 25 mg PO TID PRN PRN Itching 06/11/20 [History Last Taken 06/10/20] gabapentin 300 mg capsule 300 mg PO BID arthritis 06/11/20 [History Last Taken 06/11/20] hydroxyzine HCl 25 mg tablet 25 - 50 mg PO Q6H PRN anxiety/itching 06/11/20 [History Last Taken 06/11/20] sertraline 100 mg tablet 100 mg PO QHS 06/11/20 [History Last Taken 06/10/20] acetaminophen 325 mg tablet 650 mg PO Q6H PRN PRN Pain Score 1-10/Temp > 100.7 F 06/12/20 [Rx Last Taken Unknown] atorvastatin 40 mg tablet 40 mg PO DAILY #30 tabs 06/12/20 [Rx Last Taken Unknown] diltiazem HCl 180 mg capsule,extended release 24 hr 180 mg PO BID #60 caps 06/12/20 [Rx Last Taken Unknown] pantoprazole 40 mg tablet,delayed release 40 mg PO DAILY #30 tabs 06/12/20 [Rx Last Taken Unknown] albuterol sulfate 90 mcg/actuation aerosol inhaler (Ventolin HFA) 2 puff inhalation Q4H PRN PRN Wheezing ##1 03/25/21 [Rx Last Taken Unknown] alprazolam 0.5 mg tablet 0.5 mg PO DAILY PRN Anxiety 03/25/21 [History Last Taken Unknown] losartan 25 mg tablet 25 mg PO DAILY 03/25/21 [History Last Taken Unknown] metoprolol tartrate 25 mg tablet 75 mg PO DAILY 03/25/21 [History Last Taken Unknown] prazosin 1 mg capsule 2 mg PO DAILY 03/25/21 [History Last Taken Unknown] diazepam 5 mg tablet 5 mg PO Q8 PRN Muscle Spasm #15 tabs 01/31/22 [Rx Last Taken Unknown] ondansetron HCl 4 mg tablet 4 mg PO Q6H PRN nausea and vomiting #20 tabs 01/31/22 [Rx Last Taken Unknown] Allergy/AdvReac Type Severity Reaction Status Date / Time banana Allergy Food Verified 03/18/22 01:25 Allergy codeine Allergy Itching Verified 03/18/22 01:25 Penicillins Allergy Itching Verified 03/18/22 01:25 benzonatate AdvReac eye pain Verified 03/18/22 01:25 [From Trey Murillo] Social History Smoking Status: Current every day smoker tobacco type: cigarettes substance use type: does not use ROS ROS ED ROS Narrative Chest pain Review of Systems ROS Unobtainable: Denies due to encephalopathy Constitutional Constitutional ED: Denies chills or fever(s) Eyes Eyes: Reports none ENT ENT ED: Denies ear pain Cardiovascular Cardiovascular: Reports as per HPI and chest pain; Denies palpitations or racing heartbeat Respiratory/Chest Respiratory/Chest: Denies cough or dyspnea Gastrointestinal Gastrointestinal: Denies abdominal pain Genitourinary Genitourinary ED: Denies dysuria Musculoskeletal Musculoskeletal: Denies arthralgias Integumentary Denies abscess Neurologic Neurologic: Denies headache(s) Psychiatric Psychiatric: Denies anxiety Endocrine Endocrinology: Denies cold intolerance Hematologic/Lymphatic Hematologic/Lymphatic: Denies easy bleeding Allergic/Immunologic Allergic/Immunologic ED: Denies mouth swelling or tongue swelling EXAM Physical Exam Narrative Exam Narrative: 61-year-old female no acute distress. Vital signs stable afebrile. Pulse ox 9% on room air no signs hypoxia. H EENT exam unremarkable. Neck nontender no JVD. Lungs clear to auscultation bilaterally. Heart regular rate and rhythm no murmur. Rate about 90. Chest wall reproducibly tender left chest wall just lateral to his sternum. No ecchymosis or bruising. No subcu air or crepitance. She states it is the same pain she is having when I press on her chest. Abdomen soft nontender normal bowel sounds no peritoneal signs. Moving all 4 extremities. Calves are nontender without edema. Equal and symmetrical radial pulses. Neurologically she is awake and alert with no focal motor deficits. Const Vital Signs: 03/18/22 01:23 03/18/22 02:14 03/18/22 02:16 Temperature 97.6 F L Temperature Source Oral Pulse Rate 94 Respiratory Rate 16 Respiratory Effort Short of Breath Blood Pressure 166/90 H Blood Pressure Mean 115 Pulse Ox 100 Oxygen Delivery Method Room Air Room Air Positive well nourished; Negative for obese, cachectic, contractures or unkempt General Appearance ED: NAD; Negative for unkempt, cachectic, contractures or pallor Nutritional Appearance: Negative for cachectic or obese HEENT Reports moist mucous membranes; Denies dry mucous membranes normocephalic and atraumatic; Negative for trauma or tenderness Mouth ED: No dry mucous membranes Mouth: No dry mucous membranes Eyes PERRL and EOMs intact bilaterally General Eye ED: Negative for pale conjunctiva or scleral icterus Neck no lymphadenopathy, supple and no JVD General: Negative for tenderness Chest Wall inspection of chest normal and palpation of chest normal Chest: Negative for tenderness Resp normal respiratory effort and clear to auscultation bilaterally Effort and Inspection: Negative for respiratory distress Auscultation: Negative for rales, rhonchi or wheezes Cardio regular rate, regular rhythm, S1 normal heart sound, S2 normal heart sound and no murmurs Rate: Negative for bradycardia Rhythm: Negative for abnormal rhythm Peripheral Pulses: pulses 2+ throughout GI normal to inspection, nondistended, normoactive bowel sounds, soft to palpation, non-tender, non-distended and no masses Auscultation: Negative for hyperactive bowel sounds Back/Spine no CVA tenderness and no thoracic nor lumbar tenderness General Back: Negative for CVA tenderness Cervical Spine: Negative for cervical spine tenderness Extremity normal to inspection General Extremety ED: Negative for edema or pulses abnormal General Extremity: Negative for edema or pulses abnormal Neuro oriented x3 and CN's II-XII intact bilaterally Sensorium / Orientation: awake, alert, oriented to person, oriented to place and oriented to time; Negative for confused, lethargic or stuporous Motor Exam: strength 5/5 throughout Psych mental status grossly normal Appearance: Negative for unkempt Attitude: No agitated Mood & Affect: Negative for depressed, anxious or tearful Skin no rashes or lesions noted and no wounds General Skin Exam: Negative for jaundice or pallor Rashes: No rashes noted Trauma: Negative for abrasion or laceration MDM MDM MDM Narrative Medical decision making narrative: 61-year-old with nonexertional reproducible chest pain that appears to be reproducible on her left chest wall. She undergo cardiac work-up. She has had a stress test both in June of last year and within the last 2 weeks both of which were negative. One was done at this facility another was done at the [facility]. If her work-up is negative I am comfortable with her being discharged to home. Repeat exam at 3 AM in the morning patient is doing well. Awaiting final lab results. Lab Data Attestation: I reviewed the patient's lab results. Lab results narrative: CBC shows a white count 10.1. H&H 11.2 and 35.1. Platelets 288. Chemistries show a gap of 8. BUN 13 creatinine 1.28. Glucose 120. Troponin is 10. Labs: Laboratory Results - last 24 hr 03/18/22 03/18/22 02:00 02:00 WBC 10.1 RBC 4.06 L Hgb 11.2 L Hct 35.1 L MCV 86.5 MCH 27.6 MCHC 31.9 L RDW Std Deviation 45.8 H RDW Coeff of Ross 14.4 Plt Count 288 MPV 9.4 Immature Gran % (Auto) 0.200 Neut % (Auto) 45.0 L Lymph % (Auto) 46.2 H Stearns % (Auto) 5.0 Eos % (Auto) 3.3 Baso % (Auto) 0.3 Absolute Neuts (auto) 4.5 Absolute Lymphs (auto) 4.66 H Nucleated RBC % 0 Sodium 137 Potassium 4.3 Chloride 106 Carbon Dioxide 23.0 Anion Gap 8 BUN 13 Creatinine 1.28 H Estim Creat Clear Calc 36.50 Est GFR (MDRD) Af Amer 55 L Est GFR (MDRD) Non-Af 45 L BUN/Creatinine Ratio 10.2 Glucose 120 H Calcium 8.6 Troponin I High Sens 10 Radiography Chest X-Ray - ED: 1 View, Read by ED Physician, Heart, Lungs, Mediastinum, Bony Structures, No Acute Disease and Chronic Changes Diagnostic Testing: Chest x-ray, portable, single view, interpreted by myself shows no acute abnormality. Normal cardiac silhouette. Normal mediastinum. Normal lung wilkins. No infiltrates. No pneumothorax. Rhythm Strip Rhythm Strip: Sinus Rhythm Rate: 91 Ectopy: None EKG Initial EKG: Attestation: I personally reviewed and interpreted this EKG as follows: Interpretation: Sinus Rhythm, No Acute Injury Pattern and AV Block Comments: Normal sinus rhythm rate of 91 no acute signs of CO or ischemia. First-degree AV block with a [place] interval of 256. Follow-up EKG: Attestation: I personally reviewed and interpreted this EKG as follows: Interpretation: Sinus Rhythm and No Acute Injury Pattern Comments: Repeat EKG was performed at 3:10 AM. Again appears to have a sinus rhythm. Rate of 83. First-degree AV block. No acute signs of CO or ischemia. No significant changes from the first EKG. Prior EKG tracings: available for review Prior: Unchanged Discharge Plan Triage Chief Complaint: Chest Pain ED Provider: Chadd Willingham Dx/Rx/DC Orders Clinical Impression: Chest pain, Acute chest wall pain, History of diabetes mellitus, History of anxiety Prescriptions: No Action tizanidine [Zanaflex] 4 MG tablet 6 mg PO QHS meloxicam 15 MG tablet 15 mg PO DAILY clonazepam 1 MG tablet 1 mg PO QHS PRN PRN (Reason: Pain) oxycodone-acetaminophen [Percocet] 1 EACH tablet 1 - 2 tab PO Q4H PRN PRN (Reason: Pain) buspirone 30 MG tablet 30 mg PO BID aspirin 81 MG tablet,chewable 81 mg PO DAILY@2000 estradiol [Estrace] 2 MG tablet 2 mg PO DAILY montelukast 10 MG tablet 10 mg PO DAILY duloxetine 20 MG capsule 20 mg PO DAILY sertraline 100 MG tablet 100 mg PO QHS diclofenac sodium 100 GM gel 1 applicatio TP DAILY PRN PRN (Reason: arthritis) amitriptyline 50 MG tablet 50 mg PO QHS diphenhydramine HCl 25 MG capsule 25 mg PO TID PRN PRN (Reason: Itching) gabapentin 300 MG capsule 300 mg PO BID hydroxyzine HCl 25 MG tablet 25 - 50 mg PO Q6H PRN (Reason: anxiety/itching) acetaminophen 325 MG tablet 650 mg PO Q6H PRN PRN (Reason: Pain Score 1-10/Temp > 100.7 F) 0RF diltiazem HCl 180 MG capsule 180 mg PO BID Qty: 60 0RF pantoprazole 40 MG tablet 40 mg PO DAILY Qty: 30 0RF atorvastatin 40 MG tablet 40 mg PO DAILY Qty: 30 0RF prazosin 1 mg capsule 2 mg PO DAILY alprazolam 0.5 mg tablet 0.5 mg PO DAILY PRN (Reason: Anxiety) losartan 25 mg tablet 25 mg PO DAILY metoprolol tartrate 25 MG tablet 75 mg PO DAILY albuterol sulfate [Ventolin HFA] 1 INHALER inhaler 2 puff inhalation Q4H PRN PRN (Reason: Wheezing) Qty: 1 0RF diazepam [diazepam] 5 mg tablet 5 mg PO Q8 PRN (Reason: Muscle Spasm) Qty: 15 0RF ondansetron HCl 4 mg tablet 4 mg PO Q6H PRN (Reason: nausea and vomiting) Qty: 20 0RF Primary Care Provider: Rach Gaona Referrals: Rach Gaona MD [Primary Care Provider] - As Needed Activity Restrictions/Additional Instructions: Your chest pain appears to be chest wall pain. Ice to your chest wall. Motrin for pain and inflammation and Tylenol for pain. Follow-up with your doctor if not improving. Disposition Disposition: Home, Self Care
[2022-03-18 02:06] LABS: Absolute Lymphocyte Count 4.66 X10^3/uL (0.83-4.51); Absolute Neutrophil Count 4.5 X10^3/uL (2.0-7.7); Basophil# 0.03 X10^3/uL; Basophil% 0.3 % (0-1); Eosinophil# 0.33 X10^3/uL; Eosinophils% 3.3 % (0-5); Hematocrit 35.1 % (37-47); Hemoglobin 11.2 g/dL (12.0-15.0); Lymphocyte # 4.66 X10^3/ul (0.83-4.51); Lymphocyte % 46.2 % (19-41); Mean Corp Hgb Conc 31.9 g/dL (32-36); Mean Corpuscular Hgb 27.6 pg (27.0-32.0); Mean Corpuscular Volume 86.5 fL (81-99); Mean Platelet Vol. 9.4 fl (6.2-12.0); NRBC Flagged by Analyzer 0 % (0-5); Neutrophil # 4.54 X10^3/uL (2.7-7.7); Platelet Count 288 K/mm3 (150-450); RBC Distribution Width CV 14.4 % (11.6-14.6); RBC Distribution Width SD 45.8 fl (35.1-43.9); Red Blood Count 4.06 M/mm3 (4.2-5.4); White Blood Count 10.1 K/mm3 (4.4-11.0)
[2022-03-18] MEDS: Aspirin 81 MG TAB.CHEW 324 MG PO (02:13)
--- NOTE | 2022-03-18 03:04 | EKG12_ITS ---
Test Reason : REPEAT EKG Blood Pressure : / mmHG Vent. Rate : 083 BPM Atrial Rate : 083 BPM P-R Int : 302 ms QRS Dur : 088 ms QT Int : 412 ms P-R-T Axes : 063 -38 030 degrees QTc Int : 484 ms Sinus rhythm with 1st degree A-V block Left axis deviation Low voltage QRS (Limb Leads) Poor R wave progression Inferio ID, age undetermined Abnormal ECG Confirmed by TG POST, KATHE ([id number]), magazine editor DREW DRAKE ([id number]) on 03/18/2022 11:46:09 AM Referred By: TARI Confirmed By:KATHE MAS MD
[2022-03-18 03:10] LABS: Anion Gap 8 (5-15); BUN 13 mg/dL (7-18); BUN/Creat Ratio 10.2 RATIO (10-20); Calcium,Total 8.6 mg/dL (8.5-10.1); Chloride 106 mmol/L (98-107); Creatinine, Serum 1.28 mg/dL (0.55-1.02); EST Glomerular Filtration Rate 45 mL/min (>60); Est Glom Filt Rate - Afr Amer 55 mL/min (>60); Glucose 120 mg/dL (74-106); Potassium 4.3 mmol/L (3.5-5.1); Sodium Level 137 mmol/L (136-145); Troponin-I HS (w/2H Reflex) 10 pg/mL (3.0-54.0)
[2022-03-18 03:39] VITALS: BP 120/74; PULSE 76; RESP 17; TEMP 37.1; O2SAT 98
[2022-03-18 04:03] LABS: Reflex Troponin-HS? (from REC) Y
== END 2022-03-18 03:40 | disposition home or self-care (01) ==
LOC: ED 02:14
PROVIDERS: Emergency Provider Emergency Medicine; PCP Internal Medicine; Visit Provider Emergency Medicine
DX: R07.89 Other chest pain (principal); E11.9 Type 2 diabetes mellitus without complications; F41.9 Anxiety disorder, unspecified; I10 Essential (primary) hypertension; Z79.82 Long term (current) use of aspirin; Z79.899 Other long term (current) drug therapy; F17.210 Nicotine dependence, cigarettes, uncomplicated
CPT/HCPCS: 71045; 80048; 84484; 85025; 93005; 99284; A4216

== ENCOUNTER 2022-05-22 08:04 | Inpatient (IN) | payer OTHER, SELFPAY ==
[2022-05-22] VITALS (8 sets, daily range): BP systolic 133–183; BP diastolic 75–109; PULSE 77–130; RESP 15–20; TEMP 36.4–36.8; O2SAT 92–98; BMI 27.4; BMI 25.2
--- NOTE | 2022-05-22 08:58 | EX.ED.SAOD ---
HPI History of Present Illness Chief Complaint: Substance Abuse Informant: patient Onset/Context/Timing Onset: Yesterday Context: Gradual Onset Timing: Continuous Quality: Shaky Location: Generalized Worsened by: Nothing Relieved by: Nothing Associated Symptoms Associated Symptoms: Positive for vomiting*, diarrhea*, tremor, palpatations and no; Negative for fever*, rash*, seizure, change in mental status, trauma, suicidal ideation or homicidal ideation Narrative Narrative: Patient presents requesting detox from opiates and alcohol. Patient states she drinks approximately 1 L of wine per day. Patient states she also occasionally has some tall beers. Patient states she takes 3 Percocet per day. Patient states she is prescribed this. Patient states her last use for either 1 was yesterday. Patient admits to some vomiting and diarrhea. Patient also admits to some tremors and palpitations. Patient states nothing makes it worse and nothing makes it better. [facility] Medical History Alcohol abuse Anxiety Bipolar disorder Depression Diabetes Fibromyalgia Hypertension Substance abuse Home Medications aspirin 81 mg chewable tablet 81 mg PO DAILY@199908/15/13 [History Last Taken 06/10/20] buspirone 30 mg tablet 30 mg PO BID 08/15/13 [History Last Taken 06/11/20] clonazepam 1 mg tablet 1 mg PO QHS PRN PRN Pain 08/15/13 [History Last Taken 08/15/13] duloxetine 20 mg capsule,delayed release 20 mg PO DAILY 08/15/13 [History Last Taken 06/10/20] estradiol 2 mg tablet (Estrace) 2 mg PO DAILY 08/15/13 [History Last Taken 06/11/20] meloxicam 15 mg tablet 15 mg PO DAILY 08/15/13 [History Last Taken 06/10/20] montelukast 10 mg tablet 10 mg PO DAILY 08/15/13 [History Last Taken 06/10/20] oxycodone-acetaminophen 10 mg-325 mg tablet (Percocet) 1 - 2 tab PO Q4H PRN PRN Pain 08/15/13 [History Last Taken 06/10/20] tizanidine 4 mg tablet (Zanaflex) 6 mg PO QHS 08/15/13 [History Last Taken 06/10/20] amitriptyline 50 mg tablet 50 mg PO QHS 06/11/20 [History Last Taken 06/10/20] diclofenac sodium 3 % topical gel 1 applicatio TP DAILY PRN PRN arthritis 06/11/20 [History Last Taken 06/11/20] diphenhydramine HCl 25 mg capsule 25 mg PO TID PRN PRN Itching 06/11/20 [History Last Taken 06/10/20] gabapentin 300 mg capsule 300 mg PO BID arthritis 06/11/20 [History Last Taken 06/11/20] hydroxyzine HCl 25 mg tablet 25 - 50 mg PO Q6H PRN anxiety/itching 06/11/20 [History Last Taken 06/11/20] sertraline 100 mg tablet 100 mg PO QHS 06/11/20 [History Last Taken 06/10/20] acetaminophen 325 mg tablet 650 mg PO Q6H PRN PRN Pain Score 1-10/Temp > 100.7 F 06/12/20 [Rx Last Taken Unknown] atorvastatin 40 mg tablet 40 mg PO DAILY #30 tabs 06/12/20 [Rx Last Taken Unknown] diltiazem HCl 180 mg capsule,extended release 24 hr 180 mg PO BID #60 caps 06/12/20 [Rx Last Taken Unknown] pantoprazole 40 mg tablet,delayed release 40 mg PO DAILY #30 tabs 06/12/20 [Rx Last Taken Unknown] albuterol sulfate 90 mcg/actuation aerosol inhaler (Ventolin HFA) 2 puff inhalation Q4H PRN PRN Wheezing ##1 03/25/21 [Rx Last Taken Unknown] alprazolam 0.5 mg tablet 0.5 mg PO DAILY PRN Anxiety 03/25/21 [History Last Taken Unknown] losartan 25 mg tablet 25 mg PO DAILY 03/25/21 [History Last Taken Unknown] metoprolol tartrate 25 mg tablet 75 mg PO DAILY 03/25/21 [History Last Taken Unknown] prazosin 1 mg capsule 2 mg PO DAILY 03/25/21 [History Last Taken Unknown] diazepam 5 mg tablet 5 mg PO Q8 PRN Muscle Spasm #15 tabs 01/31/22 [Rx Last Taken Unknown] ondansetron HCl 4 mg tablet 4 mg PO Q6H PRN nausea and vomiting #20 tabs 01/31/22 [Rx Last Taken Unknown] Allergy/AdvReac Type Severity Reaction Status Date / Time banana Allergy Food Verified 03/18/22 01:25 Allergy codeine Allergy Itching Verified 03/18/22 01:25 benzonatate AdvReac eye pain Verified 03/18/22 01:25 [From Trey Murillo] Surgical History History of bilateral breast reduction surgery History of History of hemorrhoidectomy History of hysterectomy Social History Smoking Status: Current every day smoker tobacco type: cigarettes substance use type: does not use ROS ROS ED Constitutional Constitutional ED: Reports chills and subjective; Denies fever(s) Eyes Eyes: Denies blurry vision or change in vision ENT ENT ED: Reports rhinorrhea; Denies sore throat Cardiovascular Cardiovascular: Denies chest pain or palpitations Respiratory/Chest Respiratory/Chest: Denies cough or dyspnea Gastrointestinal Gastrointestinal: Reports nausea and vomiting Genitourinary Genitourinary ED: Reports urinary frequency; Denies dysuria or hematuria Musculoskeletal Musculoskeletal: Denies back pain or neck pain Integumentary Denies abscess or rash Neurologic Neurologic: Denies headache(s) or weakness Allergic/Immunologic Allergic/Immunologic ED: Denies mouth swelling or urticaria EXAM Physical Exam Const Vital Signs: 05/22/22 08:05 05/22/22 08:46 Temperature 97.6 F L 97.6 F L Temperature Source Temporal Temporal Pulse Rate 130 H 130 H Respiratory Rate 20 H 16 Blood Pressure 183/109 H 167/101 H Blood Pressure Mean 133 123 Blood Pressure Source Monitor Blood Pressure Position Semi-Fowlers Blood Pressure Location Right Arm Pulse Ox 98 97 Oxygen Delivery Method Room Air Room Air Positive well nourished and well developed General Appearance ED: well developed and NAD HEENT Reports moist mucous membranes Neck supple and no JVD Resp normal respiratory effort and clear to auscultation bilaterally Cardio regular rhythm Rate: tachycardic GI soft to palpation and non-tender Neuro oriented x3, CN's II-XII intact bilaterally and no sensory deficits noted [place] Coma Scale: document GCS findings Spontaneous Obeys Commands Oriented 15 Sensorium / Orientation: alert Speech: speech normal Motor Exam: strength 5/5 throughout Psych mental status grossly normal and thought process normal MDM MDM MDM Narrative Medical decision making narrative: Patient presents requesting to have detox from opiates and alcohol. Patient is tachycardic. Patient was given IV fluids and a dose of phenobarbital. Patient is not having any signs of delirium tremens. Basic labs were obtained. Case was discussed with the hospitalist. Discharge Plan Triage Chief Complaint: Substance Abuse ED Provider: Luis Daly Dx/Rx/DC Orders Clinical Impression: Alcohol withdrawal, Opiate withdrawal Prescriptions: No Action tizanidine [Zanaflex] 4 MG tablet 6 mg PO QHS meloxicam 15 MG tablet 15 mg PO DAILY clonazepam 1 MG tablet 1 mg PO QHS PRN PRN (Reason: Pain) oxycodone-acetaminophen [Percocet] 1 EACH tablet 1 - 2 tab PO Q4H PRN PRN (Reason: Pain) buspirone 30 MG tablet 30 mg PO BID aspirin 81 MG tablet,chewable 81 mg PO DAILY@2000 estradiol [Estrace] 2 MG tablet 2 mg PO DAILY montelukast 10 MG tablet 10 mg PO DAILY duloxetine 20 MG capsule 20 mg PO DAILY sertraline 100 MG tablet 100 mg PO QHS diclofenac sodium 100 GM gel 1 applicatio TP DAILY PRN PRN (Reason: arthritis) amitriptyline 50 MG tablet 50 mg PO QHS diphenhydramine HCl 25 MG capsule 25 mg PO TID PRN PRN (Reason: Itching) gabapentin 300 MG capsule 300 mg PO BID hydroxyzine HCl 25 MG tablet 25 - 50 mg PO Q6H PRN (Reason: anxiety/itching) acetaminophen 325 MG tablet 650 mg PO Q6H PRN PRN (Reason: Pain Score 1-10/Temp > 100.7 F) 0RF diltiazem HCl 180 MG capsule 180 mg PO BID Qty: 60 0RF pantoprazole 40 MG tablet 40 mg PO DAILY Qty: 30 0RF atorvastatin 40 MG tablet 40 mg PO DAILY Qty: 30 0RF prazosin 1 mg capsule 2 mg PO DAILY alprazolam 0.5 mg tablet 0.5 mg PO DAILY PRN (Reason: Anxiety) losartan 25 mg tablet 25 mg PO DAILY metoprolol tartrate 25 MG tablet 75 mg PO DAILY albuterol sulfate [Ventolin HFA] 1 INHALER inhaler 2 puff inhalation Q4H PRN PRN (Reason: Wheezing) Qty: 1 0RF diazepam [diazepam] 5 mg tablet 5 mg PO Q8 PRN (Reason: Muscle Spasm) Qty: 15 0RF ondansetron HCl 4 mg tablet 4 mg PO Q6H PRN (Reason: nausea and vomiting) Qty: 20 0RF Primary Care Provider: Rach Gaona Referrals: Rach Gaona MD [Primary Care Provider] - Disposition Disposition: Acute Care [facility]
[2022-05-22 09:07] LABS: Absolute Lymphocyte Count 3.74 X10^3/uL (0.83-4.51); Absolute Neutrophil Count 6.4 X10^3/uL (2.0-7.7); Basophil# 0.04 X10^3/uL; Basophil% 0.4 % (0-1); Eosinophils% 0.9 % (0-5); Hemoglobin 12.8 g/dL (12.0-15.0); Lymphocyte # 3.74 X10^3/ul (0.83-4.51); Lymphocyte % 34.4 % (19-41); Mean Corp Hgb Conc 32.8 g/dL (32-36); Mean Corpuscular Hgb 27.5 pg (27.0-32.0); Mean Corpuscular Volume 83.9 fL (81-99); Monocyte# 0.51 X10^3/uL; Monocyte% 4.7 % (0-10); NRBC Flagged by Analyzer 0 % (0-5); Neutrophil # 6.44 X10^3/uL (2.7-7.7); Neutrophil % 59.3 % (47-70); Platelet Count 361 K/mm3 (150-450); RBC Distribution Width CV 14.2 % (11.6-14.6); RBC Distribution Width SD 43.3 fl (35.1-43.9); Red Blood Count 4.65 M/mm3 (4.2-5.4); White Blood Count 10.9 K/mm3 (4.4-11.0)
[2022-05-22 09:21] LABS: Amphetamine Urine VISTA NEGATIVE (<1000 ng/mL); Barbiturate Urine VISTA NEGATIVE (< 200 ng/mL); Benzodiazepine Urine VISTA POSITIVE (< 200 ng/mL); Cocaine Urine VISTA NEGATIVE (< 300 ng/mL); Ecstacy Urine VISTA NEGATIVE (< 500 ng/mL); Methadone Urine VISTA NEGATIVE (< 300 ng/mL); PCP Urine VISTA NEGATIVE (< 25 ng/mL); THC Urine VISTA NEGATIVE (< 50 ng/mL); Vista UDS pH Range 7
[2022-05-22 09:21] LABS: AST(SGOT) 24 U/L (15-37); Alanine Aminotransfer ALT/SGPT 29 U/L (13-56); Albumin, Serum 4.3 g/dL (3.2-5.0); Alkaline Phosphatase 85 U/L (45-117); Anion Gap 7 (5-15); BUN 7 mg/dL (7-18); BUN/Creat Ratio 6.2 RATIO (10-20); Calcium,Total 9.4 mg/dL (8.5-10.1); Chloride 100 mmol/L (98-107); Creatinine, Serum 1.13 mg/dL (0.55-1.02); EST Glomerular Filtration Rate 52 mL/min (>60); Est Glom Filt Rate - Afr Amer 63 mL/min (>60); Estimated Creatinine Clearance 41.35 ml/min; Globulin 4.1 g/dL (2.2-4.2); Glucose 119 mg/dL (74-106); Protein, Total 8.4 g/dL (6.4-8.2); Sodium Level 138 mmol/L (136-145)
--- NOTE | 2022-05-22 09:21 | NURSING ---
MED SURG JOEDWARDERI ALCOHOL WITHDRAWAL, OPIATE WITHDRAWAL
[2022-05-22 09:35] LABS: Alcohol, Blood (Medical)-Serum < 3.0 mg/dL
--- NOTE | 2022-05-22 09:36 | NURSING ---
CALLED [facility]. TALKED TO NARCISO, BED CONTROL, THAT TRANSFERRED ME TO RETAY. SHE TOOK INFO AND SAID SHE WOULD ASSIGN A NURSE AND HAVE HER CALL BACK. GAVE HER THE ROOM NUMBER, 101.
--- NOTE | 2022-05-22 11:09 | PCM.HP.STD ---
HPI - General General Date of Admission: 05/22/22 Date of Service: 05/22/22 Chief Complaint: opiate wd HPI Narrative JIMBO PEREZ, is a 61 F who presents presents seeking treatment for opiate withdrawal. Patient is prescribed Percocet for fibromyalgia. Patient has been on Percocet for years but recently, has been trying to cut that back. She has been feeling more anxious picking of skin on her fingers and biting her lip and just feels terrible. Patient has thoughts of suicide but has no formal plan. She is unable to bear it any further and came here for further treatment. Patient also drinks about a bottle of wine per day. [facility] Medical History Alcohol abuse Anxiety Bipolar disorder Depression Diabetes Fibromyalgia Hypertension Substance abuse Home Medications aspirin 81 mg chewable tablet 81 mg PO DAILY@199908/15/13 [History Last Taken 06/10/20] buspirone 30 mg tablet 30 mg PO BID 08/15/13 [History Last Taken 06/11/20] clonazepam 1 mg tablet 1 mg PO QHS PRN PRN Pain 08/15/13 [History Last Taken 08/15/13] duloxetine 20 mg capsule,delayed release 20 mg PO DAILY 08/15/13 [History Last Taken 06/10/20] estradiol 2 mg tablet (Estrace) 2 mg PO DAILY 08/15/13 [History Last Taken 06/11/20] meloxicam 15 mg tablet 15 mg PO DAILY 08/15/13 [History Last Taken 06/10/20] montelukast 10 mg tablet 10 mg PO DAILY 08/15/13 [History Last Taken 06/10/20] oxycodone-acetaminophen 10 mg-325 mg tablet (Percocet) 1 - 2 tab PO Q4H PRN PRN Pain 08/15/13 [History Last Taken 06/10/20] tizanidine 4 mg tablet (Zanaflex) 6 mg PO QHS 08/15/13 [History Last Taken 06/10/20] amitriptyline 50 mg tablet 50 mg PO QHS 06/11/20 [History Last Taken 06/10/20] diclofenac sodium 3 % topical gel 1 applicatio TP DAILY PRN PRN arthritis 06/11/20 [History Last Taken 06/11/20] diphenhydramine HCl 25 mg capsule 25 mg PO TID PRN PRN Itching 06/11/20 [History Last Taken 06/10/20] gabapentin 300 mg capsule 300 mg PO BID arthritis 06/11/20 [History Last Taken 06/11/20] hydroxyzine HCl 25 mg tablet 25 - 50 mg PO Q6H PRN anxiety/itching 06/11/20 [History Last Taken 06/11/20] sertraline 100 mg tablet 100 mg PO QHS 06/11/20 [History Last Taken 06/10/20] acetaminophen 325 mg tablet 650 mg PO Q6H PRN PRN Pain Score 1-10/Temp > 100.7 F 06/12/20 [Rx Last Taken Unknown] atorvastatin 40 mg tablet 40 mg PO DAILY #30 tabs 06/12/20 [Rx Last Taken Unknown] diltiazem HCl 180 mg capsule,extended release 24 hr 180 mg PO BID #60 caps 06/12/20 [Rx Last Taken Unknown] pantoprazole 40 mg tablet,delayed release 40 mg PO DAILY #30 tabs 06/12/20 [Rx Last Taken Unknown] albuterol sulfate 90 mcg/actuation aerosol inhaler (Ventolin HFA) 2 puff inhalation Q4H PRN PRN Wheezing ##1 03/25/21 [Rx Last Taken Unknown] alprazolam 0.5 mg tablet 0.5 mg PO DAILY PRN Anxiety 03/25/21 [History Last Taken Unknown] losartan 25 mg tablet 25 mg PO DAILY 03/25/21 [History Last Taken Unknown] metoprolol tartrate 25 mg tablet 75 mg PO DAILY 03/25/21 [History Last Taken Unknown] diazepam 5 mg tablet 5 mg PO Q8 PRN Muscle Spasm #15 tabs 01/31/22 [Rx Last Taken Unknown] ondansetron HCl 4 mg tablet 4 mg PO Q6H PRN nausea and vomiting #20 tabs 01/31/22 [Rx Last Taken Unknown] amitriptyline 25 mg tablet 25 mg PO DAILY 05/22/22 [History Last Taken Unknown] Allergy/AdvReac Type Severity Reaction Status Date / Time banana Allergy Food Verified 03/18/22 01:25 Allergy codeine Allergy Itching Verified 03/18/22 01:25 benzonatate AdvReac eye pain Verified 03/18/22 01:25 [From Trey Murillo] other (Patient is estranged and does not know) Surgical History History of bilateral breast reduction surgery History of History of hemorrhoidectomy History of hysterectomy Social History Smoking Status: Current every day smoker tobacco type: cigarettes substance use type: does not use ROS ROS Narrative Patient states that her anxiety is getting worse. All review of systems were negative except as mentioned above in the history of present illness and the other review of systems. Vital Signs Vital Signs Vital Signs: 05/22/22 08:05 05/22/22 08:46 05/22/22 09:35 Temperature 36.4 C L 36.4 C L 36.5 C L Temperature Source Temporal Temporal Temporal Pulse Rate 130 H 130 H 100 Pulse Strength Respiratory Rate 20 H 16 16 Respiratory Effort Respiratory Depth Respiratory Pattern Blood Pressure 183/109 H 167/101 H 133/104 H Blood Pressure Mean 133 123 113 Blood Pressure Source Monitor Blood Pressure Position Semi-Fowlers Blood Pressure Location Right Arm Pulse Ox 98 97 98 Oxygen Delivery Method Room Air Room Air Room Air Oxygen Flow Rate (L/min) 05/22/22 09:56 05/22/22 10:03 05/22/22 10:04 Temperature 36.7 C Temperature Source Oral Pulse Rate 77 Pulse Strength Normal (2+) Respiratory Rate 18 Respiratory Effort Normal Short of Breath Respiratory Depth Normal Respiratory Pattern Normal Blood Pressure 161/91 H Blood Pressure Mean 114 Blood Pressure Source Monitor Blood Pressure Position Semi-Fowlers Blood Pressure Location Right Arm Pulse Ox 96 Oxygen Delivery Method Room Air Room Air Oxygen Flow Rate (L/min) 96 05/22/22 10:08 Temperature 36.7 C Temperature Source Oral Pulse Rate 77 Pulse Strength Respiratory Rate 18 Respiratory Effort Respiratory Depth Respiratory Pattern Blood Pressure 161/91 H Blood Pressure Mean 114 Blood Pressure Source Blood Pressure Position Blood Pressure Location Pulse Ox 96 Oxygen Delivery Method Room Air Oxygen Flow Rate (L/min) Weight Weight: 62.596 kg Body Mass Index (BMI) 25.2 Physical Exam Const alert and no apparent distress Constitutional Narrative: Anxious HEENT normocephalic, head/scalp atraumatic, hearing grossly normal bilaterally and moist oral mucous membranes Resp normal respiratory effort, no retractions, no use of accessory muscles and clear to auscultation bilaterally Cardio regular rate, regular rhythm, S1 normal heart sound and S2 normal heart sound GI normal to inspection, nondistended, normoactive bowel sounds and soft to palpation Skin Skin Narrative: Superficial skin tears on her fingertips Neuro Sensorium / Orientation: awake and alert Results Lab / Micro Data Result Diagrams: 05/22/22 08:55 05/22/22 08:55 Labs: Laboratory Results - last 24 hr 05/22/22 08:55: WBC 10.9, RBC 4.65, Hgb 12.8, Hct 39.0, MCV 83.9, MCH 27.5, MCHC 32.8, RDW Std Deviation 43.3, RDW Coeff of Ross 14.2, Plt Count 361, MPV 9.0, Immature Gran % (Auto) 0.300, Neut % (Auto) 59.3, Lymph % (Auto) 34.4, [place] % (Auto) 4.7, Eos % (Auto) 0.9, Baso % (Auto) 0.4, Absolute Neuts (auto) 6.4, Absolute Lymphs (auto) 3.74, Nucleated RBC % 0 05/22/22 08:55: Sodium 138, Potassium 3.0 L, Chloride 100, Carbon Dioxide 31.0, Anion Gap 7, BUN 7, Creatinine 1.13 H, Estim Creat Clear Calc 41.35, Est GFR (MDRD) Af Amer 63, Est GFR (MDRD) Non-Af 52 L, BUN/Creatinine Ratio 6.2 L, Glucose 119 H, Calcium 9.4, Total Bilirubin 0.40, AST 24, ALT 29, Alkaline Phosphatase 85, Total Protein 8.4 H, Albumin 4.3, Globulin 4.1, Albumin/Globulin Ratio 1.0 05/22/22 08:55: Ethyl Alcohol < 3.0 05/22/22 09:00: Urine Opiates Screen NEGATIVE, Urine Methadone Screen NEGATIVE, Ur Barbiturates Screen NEGATIVE, Ur Phencyclidine Scrn NEGATIVE, Ur Amphetamines Screen NEGATIVE, MDMA (Ecstasy) Screen NEGATIVE, U Benzodiazepines Scrn POSITIVE H, Urine Cocaine Screen NEGATIVE, U Cannabinoids Screen NEGATIVE, Ur Drug Screen Comment Assessment & Plan Assessment/Plan (1) Opiate withdrawal: PLAN: Feel more of her symptoms are associated with opiate withdrawal rather than alcohol at this time. Will initiate buprenorphine as well as other adjunctive medications to help with her withdrawal. Would hold off on phenobarbital as I feel it most of her symptoms are more attributable to opiate withdrawal though I cannot completely rule out therapy and component of alcohol withdrawal. Complicating this is patient takes alprazolam twice a day, too. PLAN: Plan Chronic condition Depression: Complicates her withdrawal. Continue with sertraline Anxiety: Continue with BuSpar. Follow-up with psychology as outpatient VTE prophylaxis: Enoxaparin. Charges/Coding Visit Charges Inpatient E&M: 73409 Init Hosp L2
[2022-05-22] MEDS: Ondansetron 8 MG Tablet PO (11:53)
[2022-05-22] MEDS: Dicyclomine 10 MG Capsule 20 MG PO ×2 (11:53→18:41)
[2022-05-22] MEDS: Loperamide 2 MG Capsule PO (11:53)
[2022-05-22] MEDS: cloNIDine HCl 0.1 MG Tablet PO ×2 (11:53→19:54)
[2022-05-22] MEDS: Potassium Chloride Oral Tablet 20 MEQ 60 MEQ PO (11:53)
[2022-05-22] MEDS: Gabapentin 300 MG Capsule PO ×2 (11:53→19:54)
[2022-05-22] MEDS: Buprenorphine HCl 2 MG TAB.SUBL SL ×2 (11:53→18:38)
[2022-05-22] MEDS: Glucerna Shake 120 ML LIQUID PO ×4 (11:54→22:04)
[2022-05-22] MEDS: Methocarbamol 750 MG Tablet 1500 MG PO (14:23)
[2022-05-22] MEDS: Aspirin 81 MG TAB.CHEW PO (19:54)
[2022-05-22] MEDS: dilTIAZem CD 180 MG Capsule PO (22:02)
[2022-05-22] MEDS: busPIRone 15 MG TABLET 30 MG PO (22:02)
[2022-05-22] MEDS: Amitriptyline 25 MG Tablet 50 MG PO (22:03)
[2022-05-22] MEDS: traZODone 100 MG Tablet PO (22:03)
[2022-05-22] MEDS: tiZANidine HCl 2 MG Tablet 6 MG PO (22:04)
[2022-05-22] MEDS: Sertraline 100 MG Tablet PO (22:05)
[2022-05-23] VITALS (7 sets, daily range): BP systolic 95–129; BP diastolic 59–94; PULSE 69–80; RESP 15–20; TEMP 36.6–37.1; O2SAT 83–95
[2022-05-23] MEDS: Buprenorphine HCl 2 MG TAB.SUBL SL ×3 (02:30→18:50)
[2022-05-23 05:08] LABS: Anion Gap 6 (5-15); BUN 15 mg/dL (7-18); BUN/Creat Ratio 8.6 RATIO (10-20); Calcium,Total 8.2 mg/dL (8.5-10.1); Chloride 104 mmol/L (98-107); Creatinine, Serum 1.74 mg/dL (0.55-1.02); EST Glomerular Filtration Rate 32 mL/min (>60); Est Glom Filt Rate - Afr Amer 38 mL/min (>60); Estimated Creatinine Clearance 26.85 ml/min; Glucose 218 mg/dL (74-106); Magnesium 1.5 mg/dL (1.6-2.6); Potassium 3.9 mmol/L (3.5-5.1); Sodium Level 139 mmol/L (136-145)
--- NOTE | 2022-05-23 05:37 | EKG12_ITS ---
Test Reason : CP Blood Pressure : / mmHG Vent. Rate : 070 BPM Atrial Rate : 070 BPM P-R Int : 274 ms QRS Dur : 080 ms QT Int : 434 ms P-R-T Axes : 060 -52 035 degrees QTc Int : 468 ms Sinus rhythm with 1st degree A-V block Left axis deviation Low voltage QRS Inferior infarct , age undetermined Cannot rule out Anterior infarct , age undetermined Abnormal ECG When compared with ECG of 18-MAR-2022 03:10, No significant change was found Confirmed by DARRELL POST, FRANCK ([id number]), visual effects editor DREW DRAKE ([id number]) on 05/27/2022 11:35:00 AM Referred By: Confirmed By:FRANCK RAMÍREZ MD
[2022-05-23] MEDS: Gabapentin 300 MG Capsule PO ×2 (05:54→15:04)
[2022-05-23] MEDS: cloNIDine HCl 0.1 MG Tablet PO (05:54)
[2022-05-23 06:40] LABS: Troponin-I HS 14 pg/mL (3.0-54.0)
[2022-05-23 08:35] LABS: Troponin-I HS 16 pg/mL (3.0-54.0)
--- NOTE | 2022-05-23 08:39 | RAD_ITS ---
STUDY: X-RAY CHEST REASON FOR EXAM: Female, 61 years old. Dyspnea TECHNIQUE: PA and lateral views of the chest. COMPARISON: Comparison is made with prior study dated 03/18/2022. FINDINGS: EKG electrodes are seen. Minimal increased markings at the lung bases likely mobile on the left side suggesting bibasilar atelectasis. There is no demonstrated pleural abnormality. Normal size heart. Normal mediastinum and dori. Normal visualized pulmonary arteries. There is atherosclerotic tortuosity of the aortic arch and descending thoracic aorta. Normal visualized thoracic spine. Normal visualized ribs, clavicles, and shoulders. There is no demonstrated abnormality of the visualized soft tissue structures of the upper abdomen. RAD/Chest PA and Lateral IMPRESSION: Findings suggest a mild mild degree of linear bibasilar atelectasis more prominent on the left side. Electronically Signed: Lucius Cohen MD at 13:00 EST ,
--- NOTE | 2022-05-23 08:39 | PN.HOSP_ITS ---
Subjective Subjective Still feeling anxious. Required being placed on oxygen today due to hypoxia. Objective Data Objective Data Vital Signs: Vital Signs Temp Pulse Resp BP Pulse Ox O2 Del Method O2 Flow Rate 36.6 C 69 16 116/69 92 Nasal Cannula 2 05/23/22 05:52 05/23/22 05:52 05/23/22 05:52 05/23/22 05:52 05/23/22 05:52 05/23/22 05:52 05/23/22 05:52 Oxygen Flow Rate (L/min) 2 Oxygen Delivery Method Nasal Cannula Weight: 62.596 kg Body Mass Index (BMI) 25.2 Intake & Output: Intake and Output for Last 24 Hours 05/21/22 05/22/22 05/23/22 23:59 23:59 23:59 Intake Total 650 / 650 Balance 650 / 650 Medical Nutrition Assessment Dietitian: Malnutrition Criteria Met Start: 05/22/22 15:48 Freq: Status: Active Protocol: Document 05/22/22 15:48 AG (Rec: 05/22/22 15:48 [id number]) Nutrition Malnutrition Evidence of Malnutrition Exists Yes Malnutrition (severe): Acute Illness/Injury Evidenced By Suboptimal Energy Intake ( Severe),Weight Loss (Severe) Clinical Problem Acute Disease or Injury Related Malnutrition Etiology severe, acute malnutrition related to inadequate oral intake Signs/Symptoms as evidenced by unintentional wt loss of 6#/4% x 2-3 weeks [employer]; 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 Consider transition to carb controlled diet if hyperglycemia persists. Lab / Micro Data Result Diagrams: 05/22/22 08:55 05/23/22 03:31 Labs: Laboratory Results - last 24 hr 05/22/22 08:55: WBC 10.9, RBC 4.65, Hgb 12.8, Hct 39.0, MCV 83.9, MCH 27.5, MCHC 32.8, RDW Std Deviation 43.3, RDW Coeff of Ross 14.2, Plt Count 361, MPV 9.0, Immature Gran % (Auto) 0.300, Neut % (Auto) 59.3, Lymph % (Auto) 34.4, Phillips % (Auto) 4.7, Eos % (Auto) 0.9, Baso % (Auto) 0.4, Absolute Neuts (auto) 6.4, Abso lute Lymphs (auto) 3.74, Nucleated RBC % 0 05/22/22 08:55: Sodium 138, Potassium 3.0 L, Chloride 100, Carbon Dioxide 31.0, Anion Gap 7, BUN 7, Creatinine 1.13 H, Estim Creat Clear Calc 41.35, Est GFR (MDRD) Af Amer 63, Est GFR (MDRD) Non-Af 52 L, BUN/Creatinine Ratio 6.2 L, Glucose 119 H, Calcium 9.4, Total Bilirubin 0.40, AST 24, ALT 29, Alkaline Phosphatase 85, Total Protein 8.4 H, Albumin 4.3, Globulin 4.1, Albumin/Globulin Ratio 1.0 05/22/22 08:55: Ethyl Alcohol < 3.0 05/22/22 09:00: Urine Opiates Screen NEGATIVE, Urine Methadone Screen NEGATIVE, Ur Barbiturates Screen NEGATIVE, Ur Phencyclidine Scrn NEGATIVE, Ur Amphetamines Screen NEGATIVE, MDMA (Ecstasy) Screen NEGATIVE, U Benzodiazepines Scrn POSITIVE H, Urine Cocaine Screen NEGATIVE, U Cannabinoids Screen NEGATIVE, Ur Drug Screen Comment 05/23/22 03:31: Sodium 139, Potassium 3.9, Chloride 104, Carbon Dioxide 29.0, Anion Gap 6, BUN 15, Creatinine 1.74 H, Estim Creat Clear Calc 26.85, Est GFR (MDRD) Af Amer 38 L, Est GFR (MDRD) Non-Af 32 L, BUN/Creatinine Ratio 8.6 L, Glucose 218 H, Calcium 8.2 L, Magnesium 1.5 L 05/23/22 06:15: Troponin I High Sens 14 05/23/22 08:03: Troponin I High Sens 16 Physical Exam Const alert and no apparent distress HEENT head/scalp atraumatic Resp normal respiratory effort, no retractions, no use of accessory muscles and clear to auscultation bilaterally Resp Narrative: Right lower lobe crackles that cleared with deep respirations Cardio regular rate, regular rhythm, S1 normal heart sound and S2 normal heart sound GI normal to inspection, nondistended, normoactive bowel sounds, soft to palpation and non-tender Assessment & Plan Assessment/Plan (1) Opiate withdrawal: PLAN: Feel more of her symptoms are associated with opiate withdrawal rather than alcohol at this time. Will initiate buprenorphine as well as other adjunctive medications to help with her withdrawal. Would hold off on phenobarbital as I feel it most of her symptoms are more attributable to opiate withdrawal though I cannot completely rule out therapy and component of alcohol withdrawal. Complicating this is patient takes alprazolam twice a day, too. (2) HOWARD (acute kidney injury): PLAN: Creatinine is gone from 1.19-1.7. Unclear etiology. Discontinue losartan and monitor. (3) Anxiety: PLAN: Complicates recovery. The more patient talks she gets focused on variety of things and was asking about nicotine cessation. Patient very concerned about opiate withdrawal while she is taking opiates some really unclear if patient is actually undergoing acute opiate withdrawal or if her anxiety is getting worse. Patient has a history of ECT for her anxiety and depression. Patient is established with psychology and psychiatry up at the [place]. Will continue with current therapy for now but if patient is not really not improving he may discontinue the buprenorphine altogether and if I anxiety still ongoing may need to have crisis come evaluate the patient. (4) Atelectasis: PLAN: Crackles heard on the right lungs improved with deep respirations. Add incentive spirometer Wean oxygen as tolerated PLAN: Plan Chronic condition * Depression: Complicates her withdrawal. Continue with sertraline * Anxiety: Continue with BuSpar. Follow-up with psychology as outpatient VTE prophylaxis: Enoxaparin. Charges/Coding Visit Charges Inpatient E&M: 41475 Subs Hosp L2
[2022-05-23] MEDS: Enoxaparin 40 MG/0.4 ML Syringe SC (10:46)
[2022-05-23] MEDS: busPIRone 15 MG TABLET 30 MG PO ×2 (10:47→20:15)
[2022-05-23] MEDS: Meloxicam 15 MG Tablet PO (10:47)
[2022-05-23] MEDS: Amitriptyline 25 MG Tablet PO (10:48)
[2022-05-23] MEDS: Atorvastatin Calcium 40 MG Tablet PO (10:48)
[2022-05-23] MEDS: Montelukast 10 MG Tablet PO (10:48)
[2022-05-23] MEDS: DULoxetine Hcl 20 MG Capsule PO (10:48)
[2022-05-23] MEDS: Estradiol 1 MG Tablet 2 MG PO (10:48)
[2022-05-23] MEDS: Pantoprazole Sodium 40 MG Tablet PO (10:48)
[2022-05-23] MEDS: Glucerna Shake 120 ML LIQUID PO ×4 (10:54→20:10)
[2022-05-23] MEDS: Acetaminophen 325 MG Tablet 650 MG PO ×2 (10:55→20:11)
[2022-05-23] MEDS: Ondansetron 8 MG Tablet PO (10:56)
--- NOTE | 2022-05-23 11:15 | ADDICTION ---
This keno writer met with PT to conduct ASAM, MSE, AUDIT, DUDIT assessments and to plan for d/c. PT A+Ox4 and participated actively. All assessments completed and placed in PT's chart. PT plans to f/u with follow-up treatment services, however she wanted to discuss it with her family upon d/c. This worker offered resources based on her listed needs. PT did not indicate a need for transportation post d/c from [facility].
[2022-05-23 11:52] LABS: Troponin-I HS 16 pg/mL (3.0-54.0)
--- NOTE | 2022-05-23 12:30 | CASEMGMT ---
Social Work Pt has LW/POA scanned into the echart. SW printed and placed in paper chart to have it scanned into the summary tab. Pt has Kristamaine Shay, daughter, listed as medical POA. FELIPE Vuong
[2022-05-23] MEDS: Metoprolol Tartrate 25 MG Tablet 75 MG PO (13:40)
[2022-05-23] MEDS: dilTIAZem CD 180 MG Capsule PO (13:40)
[2022-05-23] MEDS: Aspirin 81 MG TAB.CHEW PO (20:11)
[2022-05-23] MEDS: 0.9% Saline Lock 10 ML Syringe IV (20:11)
[2022-05-23] MEDS: Amitriptyline 25 MG Tablet 50 MG PO (20:12)
[2022-05-23] MEDS: Sertraline 100 MG Tablet PO (20:12)
[2022-05-23] MEDS: traZODone 100 MG Tablet PO (20:14)
[2022-05-23] MEDS: tiZANidine HCl 2 MG Tablet 6 MG PO (20:14)
[2022-05-24] VITALS (9 sets, daily range): BP systolic 114–140; BP diastolic 69–83; PULSE 70–92; RESP 18–20; TEMP 36.9–37.3; O2SAT 83–95
[2022-05-24] MEDS: Gabapentin 300 MG Capsule PO ×3 (00:15→20:26)
[2022-05-24] MEDS: Buprenorphine HCl 2 MG TAB.SUBL SL ×3 (04:27→23:34)
[2022-05-24 06:21] LABS: Anion Gap 2 (5-15); BUN 17 mg/dL (7-18); BUN/Creat Ratio 13.7 RATIO (10-20); Calcium,Total 8.9 mg/dL (8.5-10.1); Chloride 105 mmol/L (98-107); Creatinine, Serum 1.24 mg/dL (0.55-1.02); EST Glomerular Filtration Rate 47 mL/min (>60); Est Glom Filt Rate - Afr Amer 57 mL/min (>60); Estimated Creatinine Clearance 37.68 ml/min; Glucose 108 mg/dL (74-106); Potassium 4.2 mmol/L (3.5-5.1); Sodium Level 139 mmol/L (136-145)
[2022-05-24] MEDS: Methocarbamol 750 MG Tablet 1500 MG PO (07:29)
[2022-05-24] MEDS: cloNIDine HCl 0.1 MG Tablet PO (07:29)
--- NOTE | 2022-05-24 08:18 | PN.HOSP_ITS ---
Subjective Subjective Still feeling anxious Objective Data Objective Data Vital Signs: Vital Signs Temp Pulse Resp BP Pulse Ox O2 Del Method O2 Flow Rate 37.3 C 92 18 125/79 H 83 Room Air 2 05/24/22 07:25 05/24/22 07:25 05/24/22 07:25 05/24/22 07:25 05/24/22 07:26 05/24/22 07:26 05/24/22 07:25 FiO2 94 05/24/22 07:20 Oxygen Flow Rate (L/min) 2 Oxygen Delivery Method Room Air Weight: 62.596 kg Body Mass Index (BMI) 25.2 Intake & Output: Intake and Output for Last 24 Hours 05/22/22 05/23/22 05/24/22 23:59 23:59 23:59 Intake Total 1050 / 1050 Balance 1050 / 1050 Medical Nutrition Assessment Dietitian: Malnutrition Criteria Met Start: 05/22/22 15:48 Freq: Status: Active Protocol: Document 05/22/22 15:48 AG (Rec: 05/22/22 15:48 AG [id number]) Nutrition Malnutrition Evidence of Malnutrition Exists Yes Malnutrition (severe): Acute Illness/Injury Evidenced By Suboptimal Energy Intake ( Severe),Weight Loss (Severe) Clinical Problem Acute Disease or Injury Related Malnutrition Etiology severe, acute malnutrition related to inadequate oral intake Signs/Symptoms as evidenced by 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 Consider transition to carb controlled diet if hyperglycemia persists. Lab / Micro Data Result Diagrams: 05/22/22 08:55 05/24/22 05:53 Labs: Laboratory Results - last 24 hr 05/23/22 08:03: Troponin I High Sens 16 05/23/22 11:23: Troponin I High Sens 16 05/24/22 05:53: Sodium 139, Potassium 4.2, Chloride 105, Carbon Dioxide 32.0, Anion Gap 2 L, BUN 17, Creatinine 1.24 H, Estim Creat Clear Calc 37.68, Est GFR (MDRD) Af Amer 57 L, Est GFR (MDRD) Non-Af 47 L, BUN/Creatinine Ratio 13.7, Glucose 108 H, Calcium 8.9 Radiography Diagnostic Testing: Radiology Impression Chest X-Ray 05/23/22 08:39 IMPRESSION: Findings suggest a mild mild degree of linear bibasilar atelectasis more prominent on the left side. Electronically Signed: Lucius Cohen MD at 13:00 EST , Physical Exam Resp normal respiratory effort, no retractions, no use of accessory muscles and clear to auscultation bilaterally Cardio regular rate, regular rhythm, S1 normal heart sound and S2 normal heart sound GI normal to inspection, nondistended, normoactive bowel sounds, soft to palpation, non-tender and non-distended Extremity normal to inspection Assessment & Plan Assessment/Plan (1) Opiate withdrawal: PLAN: Feel more of her symptoms are associated with opiate withdrawal rather than alcohol at this time. Will initiate buprenorphine as well as other adjunctive medications to help with her withdrawal. Would hold off on phenobarbital as I feel it most of her symptoms are more attributable to opiate withdrawal though I cannot completely rule out therapy and component of alcohol withdrawal. Complicating this is patient takes alprazolam twice a day, too. (2) HOWARD (acute kidney injury): PLAN: Creatinine is gone from 1.19-1.7. Unclear etiology. Discontinue losartan and monitor. (3) Anxiety: PLAN: Complicates recovery. The more patient talks she gets focused on variety of things and was asking about nicotine cessation. Patient very concerned about opiate withdrawal while she is taking opiates some really unclear if patient is actually undergoing acute opiate withdrawal or if her anxiety is getting worse. Patient has a history of ECT for her anxiety and depression. Patient is established with psychology and psychiatry up at the [facility]. Will continue with current therapy for now but if patient is not really not improving he may discontinue the buprenorphine altogether and if I anxiety still ongoing may need to have crisis come evaluate the patient. (4) Atelectasis: PLAN: Crackles heard on the right lungs improved with deep respirations. Add incentive spirometer Wean oxygen as tolerated PLAN: Plan Chronic condition * Depression: Complicates her withdrawal. Continue with sertraline * Anxiety: Continue with BuSpar. Follow-up with psychology as outpatient VTE prophylaxis: Enoxaparin. Charges/Coding Visit Charges Inpatient E&M: 59334 Subs Hosp L2
[2022-05-24] MEDS: busPIRone 15 MG TABLET 30 MG PO ×2 (08:44→22:35)
[2022-05-24] MEDS: Pantoprazole Sodium 40 MG Tablet PO (08:45)
[2022-05-24] MEDS: dilTIAZem CD 180 MG Capsule PO ×2 (08:45→22:34)
[2022-05-24] MEDS: Amitriptyline 25 MG Tablet PO (08:45)
[2022-05-24] MEDS: Atorvastatin Calcium 40 MG Tablet PO (08:45)
[2022-05-24] MEDS: Meloxicam 15 MG Tablet PO (08:45)
[2022-05-24] MEDS: Montelukast 10 MG Tablet PO (08:45)
[2022-05-24] MEDS: DULoxetine Hcl 20 MG Capsule PO (08:45)
[2022-05-24] MEDS: Estradiol 1 MG Tablet 2 MG PO (08:48)
[2022-05-24] MEDS: Enoxaparin 40 MG/0.4 ML Syringe SC (08:52)
[2022-05-24] MEDS: Ondansetron 8 MG Tablet PO (08:52)
[2022-05-24] MEDS: Metoprolol Tartrate 25 MG Tablet 75 MG PO (08:52)
[2022-05-24] MEDS: Glucerna Shake 120 ML LIQUID PO ×4 (08:52→22:39)
[2022-05-24] MEDS: Aspirin 81 MG TAB.CHEW PO (20:13)
[2022-05-24] MEDS: traZODone 100 MG Tablet PO (22:29)
[2022-05-24] MEDS: 0.9% Saline Lock 10 ML Syringe IV (22:29)
[2022-05-24] MEDS: tiZANidine HCl 2 MG Tablet 6 MG PO (22:34)
[2022-05-24] MEDS: Sertraline 100 MG Tablet PO (22:35)
[2022-05-24] MEDS: Amitriptyline 25 MG Tablet 50 MG PO (22:35)
[2022-05-25] VITALS (8 sets, daily range): BP systolic 133–138; BP diastolic 69–84; PULSE 86–102; RESP 18; TEMP 36.7–37; O2SAT 85–99
--- NOTE | 2022-05-25 08:22 | PN.HOSP_ITS ---
Subjective Subjective Feels better. Objective Data Objective Data Vital Signs: Vital Signs Temp Pulse Resp BP Pulse Ox O2 Del Method O2 Flow Rate 36.7 C 102 H 18 134/84 H 99 Nasal Cannula 2 05/25/22 03:44 05/25/22 03:44 05/25/22 03:44 05/25/22 03:44 05/25/22 03:44 05/25/22 03:44 05/25/22 03:44 FiO2 94 05/24/22 13:23 Oxygen Flow Rate (L/min) 2 Oxygen Delivery Method Nasal Cannula Weight: 62.596 kg Body Mass Index (BMI) 25.2 Intake & Output: Intake and Output for Last 24 Hours 05/23/22 05/24/22 05/25/22 23:59 23:59 23:59 Intake Total 1050 / 1050 1400 / 1400 200 / 200 Balance 1050 / 1050 1400 / 1400 200 / 200 Medical Nutrition Assessment Dietitian: Malnutrition Criteria Met Start: 05/22/22 15:48 Freq: Status: Active Protocol: Document 05/22/22 15:48 AG (Rec: 05/22/22 15:48 [id number]) Nutrition Malnutrition Evidence of Malnutrition Exists Yes Malnutrition (severe): Acute Illness/Injury Evidenced By Suboptimal Energy Intake ( Severe),Weight Loss (Severe) Clinical Problem Acute Disease or Injury Related Malnutrition Etiology severe, acute malnutrition related to inadequate oral intake Signs/Symptoms as evidenced by unintentional wt loss of 6#/4% x 2-3 weeks [employer]; 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 Consider transition to carb controlled diet if hyperglycemia persists. Lab / Micro Data Result Diagrams: 05/22/22 08:55 05/24/22 05:53 Physical Exam Const alert Constitutional Narrative: less anxious. fidgeting with her hands (she's wearing medical gloves). Assessment & Plan Assessment/Plan (1) Opiate withdrawal: PLAN: Feel more of her symptoms are associated with opiate withdrawal rather than alcohol at this time. Will initiate buprenorphine as well as other adjunctive medications to help with her withdrawal. Would hold off on phenobarbital as I feel it most of her symptoms are more attributable to opiate withdrawal though I cannot completely rule out therapy and component of alcohol withdrawal. Complicating this is patient takes alprazolam twice a day, too. Follow up with [facility]. (2) HOWARD (acute kidney injury): PLAN: Resolved Unclear etiology. Discontinue losartan and monitor. (3) Anxiety: PLAN: Complicates recovery. The more patient talks she gets focused on variety of things and was asking about nicotine cessation. Patient very concerned about opiate withdrawal while she is taking opiates some really unclear if patient is actually undergoing acute opiate withdrawal or if her anxiety is getting worse. Patient has a history of ECT for her anxiety and depression. Patient is established with psychology and psychiatry up at the [facility]. Will continue with current therapy for now but if patient is not really not improving he may discontinue the buprenorphine altogether and if I anxiety still ongoing may need to have crisis come evaluate the patient. Pt fidgets with her hands and picks at them. She wears gloves to prevent further picking. She said she has been doing this for well over a year and has worked w her PCP, and psychiatry about this. I advised to set goals, such as, for 1 day, focus on 1 hour of not picking her hands, then advance that in subsequent days. I told her my recommendation is not evidence-based, but a stepping stone in helping her overcome this habit. (4) Atelectasis: PLAN: Crackles heard on the right lungs improved with deep respirations. Add incentive spirometer Resolved PLAN: Plan Chronic condition * Depression: Complicates her withdrawal. Continue with sertraline * Anxiety: Continue with BuSpar. Follow-up with psychology as outpatient VTE prophylaxis: Enoxaparin.
[2022-05-25] MEDS: Estradiol 1 MG Tablet 2 MG PO (08:51)
[2022-05-25] MEDS: Montelukast 10 MG Tablet PO (08:52)
[2022-05-25] MEDS: Enoxaparin 40 MG/0.4 ML Syringe SC (08:52)
[2022-05-25] MEDS: dilTIAZem CD 180 MG Capsule PO (08:52)
[2022-05-25] MEDS: Amitriptyline 25 MG Tablet PO (08:52)
[2022-05-25] MEDS: Metoprolol Tartrate 25 MG Tablet 75 MG PO (08:52)
[2022-05-25] MEDS: DULoxetine Hcl 20 MG Capsule PO (08:53)
[2022-05-25] MEDS: busPIRone 15 MG TABLET 30 MG PO (08:53)
[2022-05-25] MEDS: Meloxicam 15 MG Tablet PO (08:53)
[2022-05-25] MEDS: Atorvastatin Calcium 40 MG Tablet PO (08:53)
[2022-05-25] MEDS: Pantoprazole Sodium 40 MG Tablet PO (08:53)
[2022-05-25] MEDS: cloNIDine HCl 0.1 MG Tablet PO (09:04)
[2022-05-25] MEDS: Gabapentin 300 MG Capsule PO (09:04)
[2022-05-25] MEDS: Acetaminophen 325 MG Tablet 650 MG PO (09:04)
[2022-05-25] MEDS: Ondansetron 8 MG Tablet PO (09:04)
[2022-05-25] MEDS: Glucerna Shake 120 ML LIQUID PO ×2 (09:04→13:15)
--- NOTE | 2022-05-25 12:38 | DCINST_ITS ---
Discharge Instructions Diet Discharge Diet: No restrictions Follow Up Care Test Results: Test results from this visit will be discussed in further detail at your follow- up appointment, if applicable. Discharge Plan Admission Admit Date/Time: 05/22/22 11:04 Primary Reason for Your Visit: opiate withdrawal. Attending Provider: Luis Lazo Primary Care Provider: Rach Gaona Instructions Additional Instructions / Restrictions: For your hands: Spend an hour 1 day while awake not fidgeting with her hands. And then escalate that to perhaps 2 hours the next day and so forth. Follow-up with [facility] for addiction counseling Follow-up with your psychiatrist at the [place]. Discharge Orders/Prescriptions Prescriptions: Continued tizanidine [Zanaflex] 4 MG tablet 6 mg PO QHS meloxicam 15 MG tablet 15 mg PO DAILY buspirone 30 MG tablet 30 mg PO BID aspirin 81 MG tablet,chewable 81 mg PO DAILY@2000 estradiol [Estrace] 2 MG tablet 2 mg PO DAILY montelukast 10 MG tablet 10 mg PO DAILY duloxetine 20 MG capsule 20 mg PO DAILY sertraline 100 MG tablet 100 mg PO QHS diclofenac sodium 100 GM gel 1 applicatio TP DAILY PRN PRN (Reason: arthritis) amitriptyline 50 MG tablet 50 mg PO QHS diphenhydramine HCl 25 MG capsule 25 mg PO TID PRN PRN (Reason: Itching) diltiazem HCl 180 MG capsule 180 mg PO BID Qty: 60 0RF pantoprazole 40 MG tablet 40 mg PO DAILY Qty: 30 0RF atorvastatin 40 MG tablet 40 mg PO DAILY Qty: 30 0RF losartan 25 mg tablet 25 mg PO DAILY metoprolol tartrate 25 MG tablet 75 mg PO DAILY albuterol sulfate [Ventolin HFA] 1 INHALER inhaler 2 puff inhalation Q4H PRN PRN (Reason: Wheezing) Qty: 1 0RF ondansetron HCl 4 mg tablet 4 mg PO Q6H PRN (Reason: nausea and vomiting) Qty: 20 0RF amitriptyline 25 mg Tablet 25 mg PO DAILY Changed acetaminophen 325 MG tablet 1,000 mg PO Q8H PRN PRN (Reason: Pain Score 1-10/Temp > 100.7 F) Qty: 0 0RF Discontinued clonazepam 1 MG tablet 1 mg PO QHS PRN PRN (Reason: Pain) oxycodone-acetaminophen [Percocet] 1 EACH tablet 1 - 2 tab PO Q4H PRN PRN (Reason: Pain) gabapentin 300 MG capsule 300 mg PO BID alprazolam 0.5 mg tablet 0.5 mg PO DAILY PRN (Reason: Anxiety) diazepam [diazepam] 5 mg tablet 5 mg PO Q8 PRN (Reason: Muscle Spasm) Qty: 15 0RF No Action hydroxyzine HCl 25 MG tablet 25 - 50 mg PO Q6H PRN (Reason: anxiety/itching) Referrals / Follow Up: [facility] [Provider Group] - Within 2 Weeks (For your psychiatric care) Rach Gaona MD [Primary Care Provider] - Within 2 Weeks Disposition Disposition (needs filled in before D/C Order can be placed): Home, Self Care
--- NOTE | 2022-05-25 12:44 | DS.PCM_ITS ---
Providers Date of Admission: 05/22/22 Primary Care Physician: Dr. Rach Gaona MD Reason For Visit: ALCOHOL WITHDRAWAL Diagnosis Discharge Diagnosis (1) Opiate withdrawal: Status: Acute Code(s): F11.93 - Opioid use, unspecified with withdrawal Plan: Feel more of her symptoms are associated with opiate withdrawal rather than alcohol at this time. Will initiate buprenorphine as well as other adjunctive m edications to help with her withdrawal. Would hold off on phenobarbital as I feel it most of her symptoms are more attributable to opiate withdrawal though I cannot completely rule out therapy and component of alcohol withdrawal. Complicating this is patient takes alprazolam twice a day, too. Follow up with [facility]. (2) HOWARD (acute kidney injury): Status: Acute Code(s): N17.9 - Acute kidney failure, unspecified Plan: Resolved Unclear etiology. Discontinue losartan and monitor. (3) Anxiety: Status: Acute Code(s): F41.9 - Anxiety disorder, unspecified Plan: Complicates recovery. The more patient talks she gets focused on variety of things and was asking about nicotine cessation. Patient very concerned about opiate withdrawal while she is taking opiates some really unclear if patient is actually undergoing acute opiate withdrawal or if her anxiety is getting worse. Patient has a history of ECT for her anxiety and depression. Patient is established with psychology and psychiatry up at the [facility]. Will continue with current therapy for now but if patient is not really not impr oving he may discontinue the buprenorphine altogether and if I anxiety still ongoing may need to have crisis come evaluate the patient. Pt fidgets with her hands and picks at them. She wears gloves to prevent further picking. She said she has been doing this for well over a year and has worked w her PCP, and psychiatry about this. I advised to set goals, such as, for 1 day, focus on 1 hour of not picking her hands, then advance that in subsequent days. I told her my recommendation is not evidence-based, but a stepping stone in helping her overcome this habit. (4) Atelectasis: Status: Acute Code(s): J98.11 - Atelectasis Plan: Crackles heard on the right lungs improved with deep respirations. Add incentive spirometer Resolved Plan Chronic condition * Depression: Complicates her withdrawal. Continue with sertraline * Anxiety: Continue with BuSpar. Follow-up with psychology as outpatient VTE prophylaxis: Enoxaparin. Medications at Discharge Home Medications aspirin 81 mg chewable tablet 81 mg PO DAILY@199908/15/13 buspirone 30 mg tablet 30 mg PO BID 08/15/13 duloxetine 20 mg capsule,delayed release 20 mg PO DAILY 08/15/13 estradiol 2 mg tablet (Estrace) 2 mg PO DAILY 08/15/13 meloxicam 15 mg tablet 15 mg PO DAILY 08/15/13 montelukast 10 mg tablet 10 mg PO DAILY 08/15/13 tizanidine 4 mg tablet (Zanaflex) 6 mg PO QHS 08/15/13 amitriptyline 50 mg tablet 50 mg PO QHS 06/11/20 diclofenac sodium 3 % topical gel 1 applicatio TP DAILY PRN PRN arthritis 06/11/20 diphenhydramine HCl 25 mg capsule 25 mg PO TID PRN PRN Itching 06/11/20 hydroxyzine HCl 25 mg tablet 25 - 50 mg PO Q6H PRN anxiety/itching 06/11/20 sertraline 100 mg tablet 100 mg PO QHS 06/11/20 atorvastatin 40 mg tablet 40 mg PO DAILY #30 tabs 06/12/20 diltiazem HCl 180 mg capsule,extended release 24 hr 180 mg PO BID #60 caps 06/12/20 pantoprazole 40 mg tablet,delayed release 40 mg PO DAILY #30 tabs 06/12/20 albuterol sulfate 90 mcg/actuation aerosol inhaler (Ventolin HFA) 2 puff inhalation Q4H PRN PRN Wheezing ##1 03/25/21 losartan 25 mg tablet 25 mg PO DAILY 03/25/21 metoprolol tartrate 25 mg tablet 75 mg PO DAILY 03/25/21 ondansetron HCl 4 mg tablet 4 mg PO Q6H PRN nausea and vomiting #20 tabs 01/31/22 amitriptyline 25 mg tablet 25 mg PO DAILY 05/22/22 acetaminophen 325 mg tablet 1,000 mg PO Q8H PRN PRN Pain Score 1-10/Temp > 100.7 F #0 tabs 05/25/22 Hospital Course Operations None Procedures None Summary of Care Provided Minutes Spent on Discharge: 50 Hospital Course: Patient presents seeking treatment for opiate withdrawal. Patient also with take alprazolam as well as a bottle of wine per day. It was felt that the patient's symptoms are more primarily related with opiate withdrawal patient was put on buprenorphine. Patient anxiety became more evident while she was here and further information that she relayed explained extensive, exhaustive history of anxiety and depression. Patient has had ECT therapy in the past and has had this nervous tic in regards to picking of skin of her fingers. Patient has seen her primary care doctor as well as psychiatry and in regards to this. An extensive conversation with patient about her picking at her fingers and talk about a plan about focusing not picking her fingers such as an hour a day and then advancing that as she is able. To be more of a mind over matter issue but would require effort on her behalf. Patient seemed agreeable to that plan. Though I did tell her that that recommendations and I made is not based on any science but just some recommendations at that she can be empowered to try to overcome this. Patient has had some thoughts of suicide because of just everything that she is doing with but has no formal plan so crisis was not consulted during this admission Medical Records Data Medical Nutrition Assessment Dietitian: Malnutrition Criteria Met Start: 05/22/22 15:48 Freq: Status: Active Protocol: Document 05/22/22 15:48 AG (Rec: 05/22/22 15:48 AG [id number]) Nutrition Malnutrition Evidence of Malnutrition Exists Yes Malnutrition (severe): Acute Illness/Injury Evidenced By Suboptimal Energy Intake ( Severe),Weight Loss (Severe) Clinical Problem Acute Disease or Injury Related Malnutrition Etiology severe, acute malnutrition related to inadequate oral intake Signs/Symptoms as 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 Consider transition to carb controlled diet if hyperglycemia persists. Weight / BMI Weight Weight: 62.596 kg Body Mass Index (BMI) 25.2 ABG / Lab / Microbiology Data Result Diagrams: 05/22/22 08:55 05/24/22 05:53 D/C Instructions Discharge Diet: No restrictions Meaningful Use Info Meaningful Use Diagnoses (Choose all that apply): None applicable Discharge Plan Admission Admit Date/Time: 05/22/22 11:04 Primary Reason for Your Visit: opiate withdrawal. Attending Provider: Luis Lazo Primary Care Provider: Rach Gaona Instructions Additional Instructions / Restrictions: For your hands: Spend an hour 1 day while awake not fidgeting with her hands. And then escalate that to perhaps 2 hours the next day and so forth. Follow-up with [facility] for addiction counseling Follow-up with your psychiatrist at the [facility]. Discharge Orders/Prescriptions Prescriptions: Continued tizanidine [Zanaflex] 4 MG tablet 6 mg PO QHS meloxicam 15 MG tablet 15 mg PO DAILY buspirone 30 MG tablet 30 mg PO BID aspirin 81 MG tablet,chewable 81 mg PO DAILY@2000 estradiol [Estrace] 2 MG tablet 2 mg PO DAILY montelukast 10 MG tablet 10 mg PO DAILY duloxetine 20 MG capsule 20 mg PO DAILY sertraline 100 MG tablet 100 mg PO QHS diclofenac sodium 100 GM gel 1 applicatio TP DAILY PRN PRN (Reason: arthritis) amitriptyline 50 MG tablet 50 mg PO QHS diphenhydramine HCl 25 MG capsule 25 mg PO TID PRN PRN (Reason: Itching) diltiazem HCl 180 MG capsule 180 mg PO BID Qty: 60 0RF pantoprazole 40 MG tablet 40 mg PO DAILY Qty: 30 0RF atorvastatin 40 MG tablet 40 mg PO DAILY Qty: 30 0RF losartan 25 mg tablet 25 mg PO DAILY metoprolol tartrate 25 MG tablet 75 mg PO DAILY albuterol sulfate [Ventolin HFA] 1 INHALER inhaler 2 puff inhalation Q4H PRN PRN (Reason: Wheezing) Qty: 1 0RF ondansetron HCl 4 mg tablet 4 mg PO Q6H PRN (Reason: nausea and vomiting) Qty: 20 0RF amitriptyline 25 mg Tablet 25 mg PO DAILY Changed acetaminophen 325 MG tablet 1,000 mg PO Q8H PRN PRN (Reason: Pain Score 1-10/Temp > 100.7 F) Qty: 0 0RF Discontinued clonazepam 1 MG tablet 1 mg PO QHS PRN PRN (Reason: Pain) oxycodone-acetaminophen [Percocet] 1 EACH tablet 1 - 2 tab PO Q4H PRN PRN (Reason: Pain) gabapentin 300 MG capsule 300 mg PO BID alprazolam 0.5 mg tablet 0.5 mg PO DAILY PRN (Reason: Anxiety) diazepam [diazepam] 5 mg tablet 5 mg PO Q8 PRN (Reason: Muscle Spasm) Qty: 15 0RF No Action hydroxyzine HCl 25 MG tablet 25 - 50 mg PO Q6H PRN (Reason: anxiety/itching) Referrals / Follow Up: [facility] [place] [Provider Group] - Within 2 Weeks (For your psychiatric care) Rach Gaona MD [Primary Care Provider] - Within 2 Weeks Disposition Disposition (needs filled in before D/C Order can be placed): Home, Self Care Charges/Coding Visit Charges Inpatient E&M: 60580 Disch Hosp >30min
== END 2022-05-25 18:06 | disposition home or self-care (01) | DRG 896 ==
LOC: ED 09:06 → PCU 11:26
PROVIDERS: Hospitalist; Emergency Provider Emergency Medicine; PCP Internal Medicine
DX: F11.23 Opioid dependence with withdrawal (principal); E43 Unspecified severe protein-calorie malnutrition; N17.9 Acute kidney failure, unspecified; R45.851 Suicidal ideations; J98.11 Atelectasis; E11.9 Type 2 diabetes mellitus without complications; I10 Essential (primary) hypertension; M79.7 Fibromyalgia; F17.210 Nicotine dependence, cigarettes, uncomplicated; F41.9 Anxiety disorder, unspecified; Z79.82 Long term (current) use of aspirin; F32.A Depression, unspecified; Z68.25 Body mass index [BMI] 25.0-25.9, adult
CPT/HCPCS: 36415; 71046; 80048; 80053; 80307; 82077; 83735; 84484; 85025; 93005; 97802; 99252; 99284; A4216; G0463

== ENCOUNTER 2022-06-06 12:51 | Inpatient (IN) | payer MEDICARE, SELFPAY ==
[2022-06-06 12:52] VITALS: BP 185/76; PULSE 127; RESP 18; TEMP 36.4; O2SAT 100; BMI 25.2
--- NOTE | 2022-06-06 13:24 | CM.ED ---
Addendum entered by Mirtha Sanchez 06/06/22 13:28: SW had reviewed chart and noted that on previous admission in May patient had reported she wanted to discuss outpatient options with her family. SW inquired about that with patient on this visit and patient said that she is estranged from her family. Patient said that she does not feel good and feels like I am going to . Patient inquired as to the medication regiment for the program and patient was encouraged to speak to MD. Mirtha SPENCER Original Note: SATNAM Note Referral Source: [facility] Referral Reason: TAYLOR HAY met with patient to discuss the [facility] program. Present in the room was patient's friend who she identifies as family. Patient gave verbal consent to speak to her in the presence of her friend. Patient reports they are detoxing from alcohol. Patient voiced that last drink was yesterday. Drank 3/5th in the last 3 days. Patient reports she is estranged from her family. Patient had previously been to outpatient AOD provider in [place] but that was years ago. Patient is linked with psychologist, Vladimir Nunez and psychiatrist, Dez Odom from [place] in [place]. Patient reports she is taking her medication as prescribed. Patient said that she has ongoing contact with her [facility] providers via video chart every couple of months . Patient was advised that the [facility] program includes no outside food or visitors, no phone access and all personal items are secured. SATNAM called Treatment Navigator and updated her regarding patient?s admission to [facility]. Plan: TAYLOR SPENCER
--- NOTE | 2022-06-06 13:31 | EDS_ITS ---
HPI History of Present Illness Chief Complaint: Substance Abuse Detail of Chief Complaint: Alcohol withdrawal Informant: patient Narrative Narrative: Patient presents requesting admission for alcohol detox. Patient was admitted to the hospital May 22 to for opiate detox. At that time they felt her symptoms were secondary to her opiates rather than her alcohol use. At that time it is documented the patient had been drinking a bottle of wine a day. Patient states she has not followed up at [facility] because she used to work there and is uncomfortable. She is looking for another similar program in the area that she can go to. She presents today due to concern for alcohol withdrawal. She states since leaving the hospital on the she has been drinking vodka. Her last drink was last evening. She feels shaky and anxious. She states she thinks she has blacked out when she is stopped drinking in the past but does not know of any seizures. [facility] Medical History Alcohol abuse Anxiety Anxiety and depression Bipolar disorder Chronic back pain Depression Diabetes Fibromyalgia Hiatus hernia Hypertension Hypertension Substance abuse Home Medications aspirin 81 mg chewable tablet 81 mg PO DAILY@199908/15/13 [History Last Taken 06/10/20] buspirone 30 mg tablet 30 mg PO BID 08/15/13 [History Last Taken 06/11/20] duloxetine 20 mg capsule,delayed release 20 mg PO DAILY 08/15/13 [History Last Taken 06/10/20] estradiol 2 mg tablet (Estrace) 2 mg PO DAILY 08/15/13 [History Last Taken 06/11/20] montelukast 10 mg tablet 10 mg PO DAILY 08/15/13 [History Last Taken 06/10/20] tizanidine 4 mg tablet (Zanaflex) 6 mg PO QHS 08/15/13 [History Last Taken 06/10/20] amitriptyline 50 mg tablet 50 mg PO QHS 06/11/20 [History Last Taken 06/10/20] diclofenac sodium 3 % topical gel 1 applicatio TP DAILY PRN PRN arthritis 06/11/20 [History Last Taken 06/11/20] diphenhydramine HCl 25 mg capsule 25 mg PO TID PRN PRN Itching 06/11/20 [History Last Taken 06/10/20] hydroxyzine HCl 25 mg tablet 25 - 50 mg PO Q6H PRN anxiety/itching 06/11/20 [His tory Last Taken 06/11/20] sertraline 100 mg tablet 100 mg PO QHS 06/11/20 [History Last Taken 06/10/20] atorvastatin 40 mg tablet 40 mg PO DAILY #30 tabs 06/12/20 [Rx Last Taken Unknown] diltiazem HCl 180 mg capsule,extended release 24 hr 180 mg PO BID #60 caps 06/12/20 [Rx Last Taken Unknown] pantoprazole 40 mg tablet,delayed release 40 mg PO DAILY #30 tabs 06/12/20 [Rx Last Taken Unknown] albuterol sulfate 90 mcg/actuation aerosol inhaler (Ventolin HFA) 2 puff inhalation Q4H PRN PRN Wheezing ##1 03/25/21 [Rx Last Taken Unknown] losartan 25 mg tablet 25 mg PO DAILY 03/25/21 [History Last Taken Unknown] metoprolol tartrate 25 mg tablet 75 mg PO DAILY 03/25/21 [History Last Taken Unknown] ondansetron HCl 4 mg tablet 4 mg PO Q6H PRN nausea and vomiting #20 tabs 01/31/22 [Rx Last Taken Unknown] alprazolam 0.5 mg tablet 0.5 mg PO BID ANXIETY 06/06/22 [History Last Taken 06/05/22] dulaglutide 1.5 mg/0.5 mL subcutaneous pen injector (Trulicity) 1.5 mg subcut LONG DM 06/06/22 [History Last Taken 05/25/22] hydrochlorothiazide 12.5 mg capsule 12.5 mg PO DAILY HTN 06/06/22 [History Last Taken 06/06/22] metformin 500 mg tablet,extended release 24 hr 500 mg PO BIDCM DM 06/06/22 [History Last Taken 06/06/22] olanzapine 2.5 mg tablet 5 mg PO QHS ANXIETY/SKIN PICKING 06/06/22 [History Last Taken 06/05/22] Allergy/AdvReac Type Severity Reaction Status Date / Time banana Allergy Food Verified 06/06/22 12:54 Allergy codeine Allergy Itching Verified 06/06/22 12:54 benzonatate AdvReac eye pain Verified 06/06/22 12:54 [From Trey Murillo] Surgical History History of bilateral breast reduction surgery History of History of hemorrhoidectomy History of hysterectomy Social History Smoking Status: Current every day smoker tobacco type: cigarettes substance use type: does not use ROS ROS ED Constitutional Constitutional ED: Denies chills or fever(s) Eyes Eyes: Denies change in vision or discharge from eye(s) ENT ENT ED: Denies discharge from eye(s), rhinorrhea or sore throat Cardiovascular Cardiovascular: Reports racing heartbeat; Denies chest pain or palpitations Respiratory/Chest Respiratory/Chest: Denies cough or dyspnea Gastrointestinal Gastrointestinal: Denies abdominal pain, diarrhea, nausea or vomiting Genitourinary Genitourinary ED: Denies difficulty urinating or dysuria Musculoskeletal Musculoskeletal: Denies back pain or extremity pain Integumentary Denies Abrasions or rash Neurologic Neurologic: Denies headache(s) or weakness Psychiatric Psychiatric: Reports anxiety; Denies depression Endocrine Endocrinology: Denies polydipsia or polyuria Allergic/Immunologic Allergic/Immunologic ED: Denies lip swelling or urticaria EXAM Physical Exam Const Vital Signs: 06/06/22 12:52 Temperature 97.6 F L Temperature Source Temporal Pulse Rate 127 H Respiratory Rate 18 Blood Pressure 185/76 H Blood Pressure Mean 112 Pulse Ox 100 Oxygen Delivery Method Room Air Positive well nourished and well developed General Appearance ED: well developed HEENT Reports normocephalic and head/scalp atraumatic Eyes PERRL and EOMs intact bilaterally Neck supple Chest Wall inspection of chest normal and palpation of chest normal Resp normal respiratory effort and clear to auscultation bilaterally Cardio regular rhythm Rate: tachycardic GI normal to inspection, nondistended, normoactive bowel sounds Palpation: soft Extremity normal to inspection Neuro oriented x3 and no sensory deficits noted Sensorium / Orientation: alert Motor Exam: strength 5/5 throughout Psych mental status grossly normal Skin no rashes or lesions noted MDM MDM MDM Narrative Medical decision making narrative: Lab work for addiction medicine obtained. Patient given a small dose of IV Ativan to help with withdrawal symptoms and anxiety. Lab Data Attestation: I reviewed the patient's lab results. Labs: Laboratory Results - last 24 hr 06/06/22 06/06/22 06/06/22 13:51 14:55 14:55 WBC 10.4 RBC 4.27 Hgb 12.0 Hct 34.4 L MCV 80.6 L MCH 28.1 MCHC 34.9 RDW Std Deviation 38.2 RDW Coeff of Ross 13.3 Plt Count 419 MPV 9.1 Immature Gran % (Auto) 0.300 Neut % (Auto) 63.4 Lymph % (Auto) 31.9 [place] % (Auto) 3.8 Eos % (Auto) 0.2 Baso % (Auto) 0.4 Absolute Neuts (auto) 6.6 Absolute Lymphs (auto) 3.31 Nucleated RBC % 0 Sodium 137 Potassium 3.3 L Chloride 96 L Carbon Dioxide 22.0 Anion Gap 19 H BUN 23 H Creatinine 1.59 H Estim Creat Clear Calc 29.39 Est GFR (MDRD) Af Amer 42 L Est GFR (MDRD) Non-Af 35 L BUN/Creatinine Ratio 14.5 Glucose 77 Calcium 8.5 Total Bilirubin 0.50 AST 33 ALT 33 Alkaline Phosphatase 74 Total Protein 7.7 Albumin 4.0 Globulin 3.7 Albumin/Globulin Ratio 1.1 Urine Opiates Screen NEGATIVE Urine Methadone Screen NEGATIVE Ur Barbiturates Screen NEGATIVE Ur Phencyclidine Scrn NEGATIVE Ur Amphetamines Screen NEGATIVE MDMA (Ecstasy) Screen NEGATIVE U Benzodiazepines Scrn POSITIVE H Urine Cocaine Screen NEGATIVE U Cannabinoids Screen NEGATIVE Ur Drug Screen Comment Ethyl Alcohol 06/06/22 14:55 WBC RBC Hgb Hct MCV MCH MCHC RDW Std Deviation RDW Coeff of Ross Plt Count MPV Immature Gran % (Auto) Neut % (Auto) Lymph % (Auto) [place] % (Auto) Eos % (Auto) Baso % (Auto) Absolute Neuts (auto) Absolute Lymphs (auto) Nucleated RBC % Sodium Potassium Chloride Carbon Dioxide Anion Gap BUN Creatinine Estim Creat Clear Calc Est GFR (MDRD) Af Amer Est GFR (MDRD) Non-Af BUN/Creatinine Ratio Glucose Calcium Total Bilirubin AST ALT Alkaline Phosphatase Total Protein Albumin Globulin Albumin/Globulin Ratio Urine Opiates Screen Urine Methadone Screen Ur Barbiturates Screen Ur Phencyclidine Scrn Ur Amphetamines Screen MDMA (Ecstasy) Screen U Benzodiazepines Scrn Urine Cocaine Screen U Cannabinoids Screen Ur Drug Screen Comment Ethyl Alcohol < 3.0 Treatment and Re-Evaluation Narrative: CBC unremarkable. Chemistry studies reveal slightly low potassium at 3.3. BUN is 23 and creatinine 1.59, consistent with her prior values. LFTs are unremarkable at this time. Urine tox screen is positive for benzos which she is prescribed. EtOH is less than 3. I will speak with hospitalist regarding admission for alcohol detox. Addendum: I spoke with the hospitalist who had recently admitted this patient. He feels that the patient's symptoms are largely secondary to her anxiety. He is not sure that she will require a formal medical detox from alcohol as she was recently here for 3 days and had no significant symptoms of alcohol withdrawal. I spoke with social work who will evaluate the patient and see if we can find a dual diagnosis facility to treat her anxiety as well as her alcoholism. Patient will be signed out to oncoming physician for further monitoring. Discharge Plan Triage Chief Complaint: Substance Abuse ED Provider: Elizabeth Boothe Dx/Rx/DC Orders Clinical Impression: Desire for detoxification, Anxiety Prescriptions: No Action tizanidine [Zanaflex] 4 MG tablet 6 mg PO QHS buspirone 30 MG tablet 30 mg PO BID aspirin 81 MG tablet,chewable 81 mg PO DAILY@2000 estradiol [Estrace] 2 MG tablet 2 mg PO DAILY montelukast 10 MG tablet 10 mg PO DAILY duloxetine 20 MG capsule 20 mg PO DAILY sertraline 100 MG tablet 100 mg PO QHS diclofenac sodium 100 GM gel 1 applicatio TP DAILY PRN PRN (Reason: arthritis) amitriptyline 50 MG tablet 50 mg PO QHS diphenhydramine HCl 25 MG capsule 25 mg PO TID PRN PRN (Reason: Itching) hydroxyzine HCl 25 MG tablet 25 - 50 mg PO Q6H PRN (Reason: anxiety/itching) diltiazem HCl 180 MG capsule 180 mg PO BID Qty: 60 0RF pantoprazole 40 MG tablet 40 mg PO DAILY Qty: 30 0RF atorvastatin 40 MG tablet 40 mg PO DAILY Qty: 30 0RF losartan 25 mg tablet 25 mg PO DAILY metoprolol tartrate 25 MG tablet 75 mg PO DAILY albuterol sulfate [Ventolin HFA] 1 INHALER inhaler 2 puff inhalation Q4H PRN PRN (Reason: Wheezing) Qty: 1 0RF ondansetron HCl 4 mg tablet 4 mg PO Q6H PRN (Reason: nausea and vomiting) Qty: 20 0RF olanzapine 2.5 mg tablet 5 mg PO QHS Label Comments: TAKE 1 TABLET BY MOUTH DAILY AT BEDTIME. FOR SKIN PICKING AND INSOMNIA alprazolam 0.5 mg tablet 0.5 mg PO BID Label Comments: TAKE 1 TABLET BY MOUTH TWICE DAILY NEEDED FOR ANXIETY FOR UP TO 30 DAYS. hydrochlorothiazide 12.5 mg capsule 12.5 mg PO DAILY Label Comments: TAKE 1 CAPSULE BY MOUTH ONCE DAILY metformin 500 mg tablet extended release 24 hr 500 mg PO BIDCM Label Comments: TAKE 1 TABLET BY MOUTH TWICE A DAY WITH MEALS Trulicity 1.5 mg/0.5 mL pen injector 1.5 mg SUBCUT LONG Label Comments: INJECT 1.5 MG SUBCUTANEOUSLY ONE TIME A WEEK. Primary Care Provider: Rach Gaona Referrals: Rcah Gaona MD [Primary Care Provider] -
[2022-06-06 14:11] LABS: Amphetamine Urine VISTA NEGATIVE (<1000 ng/mL); Barbiturate Urine VISTA NEGATIVE (< 200 ng/mL); Benzodiazepine Urine VISTA POSITIVE (< 200 ng/mL); Cocaine Urine VISTA NEGATIVE (< 300 ng/mL); Ecstacy Urine VISTA NEGATIVE (< 500 ng/mL); Methadone Urine VISTA NEGATIVE (< 300 ng/mL); PCP Urine VISTA NEGATIVE (< 25 ng/mL); THC Urine VISTA NEGATIVE (< 50 ng/mL); Vista UDS pH Range 5
[2022-06-06] MEDS: LORazepam 2 MG/ML Syringe 0.5 MG IV (15:05)
[2022-06-06 15:11] LABS: Absolute Lymphocyte Count 3.31 X10^3/uL (0.83-4.51); Absolute Neutrophil Count 6.6 X10^3/uL (2.0-7.7); Basophil# 0.04 X10^3/uL; Basophil% 0.4 % (0-1); Eosinophil# 0.02 X10^3/uL; Eosinophils% 0.2 % (0-5); Hematocrit 34.4 % (37-47); Lymphocyte # 3.31 X10^3/ul (0.83-4.51); Lymphocyte % 31.9 % (19-41); Mean Corp Hgb Conc 34.9 g/dL (32-36); Mean Corpuscular Hgb 28.1 pg (27.0-32.0); Mean Corpuscular Volume 80.6 fL (81-99); Mean Platelet Vol. 9.1 fl (6.2-12.0); Monocyte# 0.39 X10^3/uL; Monocyte% 3.8 % (0-10); NRBC Flagged by Analyzer 0 % (0-5); Neutrophil % 63.4 % (47-70); Platelet Count 419 K/mm3 (150-450); RBC Distribution Width CV 13.3 % (11.6-14.6); RBC Distribution Width SD 38.2 fl (35.1-43.9); Red Blood Count 4.27 M/mm3 (4.2-5.4); White Blood Count 10.4 K/mm3 (4.4-11.0)
[2022-06-06 15:36] LABS: ALB/GLOB Ratio 1.1 RATIO (0.9-2.4); AST(SGOT) 33 U/L (15-37); Alanine Aminotransfer ALT/SGPT 33 U/L (13-56); Alkaline Phosphatase 74 U/L (45-117); Anion Gap 19 (5-15); BUN 23 mg/dL (7-18); BUN/Creat Ratio 14.5 RATIO (10-20); Calcium,Total 8.5 mg/dL (8.5-10.1); Chloride 96 mmol/L (98-107); Creatinine, Serum 1.59 mg/dL (0.55-1.02); EST Glomerular Filtration Rate 35 mL/min (>60); Est Glom Filt Rate - Afr Amer 42 mL/min (>60); Estimated Creatinine Clearance 29.39 ml/min; Globulin 3.7 g/dL (2.2-4.2); Glucose 77 mg/dL (74-106); Potassium 3.3 mmol/L (3.5-5.1); Protein, Total 7.7 g/dL (6.4-8.2); Sodium Level 137 mmol/L (136-145)
[2022-06-06 15:44] LABS: Alcohol, Blood (Medical)-Serum < 3.0 mg/dL
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
--- NOTE | 2022-06-06 17:51 | ED.RN ---
Dinner tray ordered for patient
--- NOTE | 2022-06-06 18:43 | CM.ED ---
Patient reports diagnosis of bipolar. Stating to chief underwriter that medication is working well. Mirtha SPENCER
--- NOTE | 2022-06-06 20:52 | CM.ED ---
SW went back into patient's room. Patient said that her hands are healing and she is not picking. Patient said that she went to MD Gaona and she prescribed her Zyprexa for her hands and her hands are healing. SW asked patient about her AOD follow up from last [facility] admission and patient said that she has been following up with [facility] and doing meditations and he asks me about the addiction issues. SATNAM updated MD. SATNAM noted that patient was not wearing hospital gloves and that patient's hands were healing. SATNAM had talked to Adrian at [facility] and she said that patient could go to [facility]. SW had talked to patient and she said that she wanted to stay at [facility]. SATNAM updated MD that if crisis or mental health issues present to contact crisis. Mirtha SPENCER
--- NOTE | 2022-06-06 20:57 | PCM.HP.STD ---
HPI - General General Date of Admission: 06/06/22 Date of Service: 06/06/22 Chief Complaint: Acute alcohol withdrawal - 1 day HPI Narrative JIMBO PEREZ, is a 61 F who presents with the above. Patient has past medical history of polysubstance use, recently discharged on 05/25/22 after admission for acute opioid withdrawal. Patient's hospital stay at that time was complicated by severe anxiety, history of ECT, picking of the skin of her fingers. She had management wearing gloves in that hospital stay. Since her discharge, patient had followed up with Dr. Gaona, her primary care doctor and was started on olanzapine. She had also followed up with her psychiatrist and psychologist via telemedicine. She was resumed on amitriptyline yesterday. Patient admits to drinking about 1/5 of a pint of vodka every day. Her last drink was yesterday. She has been following tremors and feels anxious. She denied any visual or auditory hallucinations. Vitals in the ED showed BP 185/76, HR 127, respiratory rate 18, temperature 97.6 F, oxygen sat 100% on room air. CBCD was unremarkable. Na 137, K 3.3, Cl 96, Co2 22, BUn 23, Cr 1.59. Urine tox was positive for benzo. Alcohol <3.0. [facility] Medical History Alcohol abuse Anxiety Anxiety and depression Bipolar disorder Chronic back pain Depression Diabetes Fibromyalgia Hiatus hernia Hypertension Hypertension Substance abuse Home Medications aspirin 81 mg chewable tablet 81 mg PO DAILY@199908/15/13 [History Last Taken 06/06/22] buspirone 30 mg tablet 30 mg PO BID 08/15/13 [History Last Taken 06/06/22] duloxetine 20 mg capsule,delayed release 20 mg PO DAILY 08/15/13 [History Last Taken 06/06/22] estradiol 2 mg tablet (Estrace) 2 mg PO DAILY 08/15/13 [History Last Taken 06/06/22] montelukast 10 mg tablet 10 mg PO DAILY 08/15/13 [History Last Taken 06/06/22] tizanidine 4 mg tablet (Zanaflex) 6 mg PO QHS 08/15/13 [History Last Taken 06/05/22] amitriptyline 50 mg tablet 50 mg PO QHS 06/11/20 [History Last Taken 06/05/22] diclofenac sodium 3 % topical gel 1 applicatio TP DAILY PRN PRN arthritis 06/11/20 [History Last Taken 06/06/22] diphenhydramine HCl 25 mg capsule 25 mg PO TID PRN PRN Itching 06/11/20 [History Last Taken 06/10/20] hydroxyzine HCl 25 mg tablet 25 - 50 mg PO Q6H PRN anxiety/itching 06/11/20 [History Last Taken 06/06/22] sertraline 100 mg tablet 100 mg PO QHS 06/11/20 [History Last Taken 06/05/22] atorvastatin 40 mg tablet 40 mg PO DAILY #30 tabs 06/12/20 [Rx Last Taken 06/06/22] diltiazem HCl 180 mg capsule,extended release 24 hr 180 mg PO BID #60 caps 06/12/20 [Rx Last Taken 06/05/22] pantoprazole 40 mg tablet,delayed release 40 mg PO DAILY #30 tabs 06/12/20 [Rx Last Taken 06/05/22] albuterol sulfate 90 mcg/actuation aerosol inhaler (Ventolin HFA) 2 puff inhalation Q4H PRN PRN Wheezing ##1 03/25/21 [Rx Last Taken 2 Days Ago ~06/04/22] losartan 25 mg tablet 25 mg PO DAILY 03/25/21 [History Last Taken 06/06/22] metoprolol tartrate 25 mg tablet 75 mg PO DAILY 03/25/21 [History Last Taken 06/06/22] ondansetron HCl 4 mg tablet 4 mg PO Q6H PRN nausea and vomiting #20 tabs 01/31/22 [Rx Last Taken 06/05/22] alprazolam 0.5 mg tablet 0.5 mg PO BID ANXIETY 06/06/22 [History Last Taken 06/05/22] dulaglutide 1.5 mg/0.5 mL subcutaneous pen injector (Trulicity) 1.5 mg subcut LONG DM 06/06/22 [History Last Taken 05/25/22] hydrochlorothiazide 12.5 mg capsule 12.5 mg PO DAILY HTN 06/06/22 [History Last Taken 06/06/22] metformin 500 mg tablet,extended release 24 hr 500 mg PO BIDCM DM 06/06/22 [History Last Taken 06/06/22] olanzapine 2.5 mg tablet 5 mg PO QHS ANXIETY/SKIN PICKING 06/06/22 [History Last Taken 06/05/22] Allergy/AdvReac Type Severity Reaction Status Date / Time banana Allergy Food Verified 06/06/22 12:54 Allergy codeine Allergy Itching Verified 06/06/22 12:54 benzonatate AdvReac eye pain Verified 06/06/22 12:54 [From Trey Murillo] Surgical History History of bilateral breast reduction surgery History of History of hemorrhoidectomy History of hysterectomy Social History (Updated 06/06/22 @ 22:[address] Vivian Cook MD) Smoking Status: Current every day smoker tobacco type: cigarettes alcohol intake: current substance use type: does not use ROS ROS Narrative Constitutional: Denies: Anorexia, Chills, Fever, Night Sweats, Weight Change Eyes: Denies: Blurred vision, Cataracts, Conjunctivae Inflammation, Pain, Redness, Vision Change HEENT: Denies: Difficulty Hearing, Difficulty Swallowing, Head Aches, Hearing Changes, Sinus Congestion, Sinus Drainage Cardiovascular: Denies: Chest Pain, Orthopnea, Palpitations Respiratory: Denies: Cough, Shortness of breath at rest, Sputum production Gastrointestinal: Denies: Abdominal Pain, Nausea, Vomiting Genitourinary: Denies: Dysuria Musculoskeletal: Denies: Joint Pain, Joint stiffness, Joint swelling, Joint Tenderness Skin: Denies: Rash, Wounds Neurological: See HPI Vital Signs Vital Signs Vital Signs: 06/06/22 12:52 Temperature 97.6 F L Temperature Source Temporal Pulse Rate 127 H Respiratory Rate 18 Blood Pressure 185/76 H Blood Pressure Mean 112 Pulse Ox 100 Oxygen Delivery Method Room Air Weight Weight: 62.596 kg Body Mass Index (BMI) 25.2 Physical Exam Narrative Physical exam: General: Alert, Oriented x3, Cooperative HEENT: Atraumatic Oral: Moist Mucosa Neck: Supple Lungs: Clear to auscultation Cardiovascular: HS I+II, regular, no murmurs Abdomen: Bowel Sounds Present, Soft, Non Tender Extremities: No edema Skin: Healing lesions about the especially close to the nailbed from previous skin picking Neurological: Grossly intact Psych/Mental Status: Appropriate Results Lab / Micro Data Result Diagrams: 06/06/22 14:55 06/06/22 14:55 Labs: Laboratory Results - last 24 hr 06/06/22 13:51: Urine Opiates Screen NEGATIVE, Urine Methadone Screen NEGATIVE, Ur Barbiturates Screen NEGATIVE, Ur Phencyclidine Scrn NEGATIVE, Ur Amphetamines Screen NEGATIVE, MDMA (Ecstasy) Screen NEGATIVE, U Benzodiazepines Scrn POSITIVE H, Urine Cocaine Screen NEGATIVE, U Cannabinoids Screen NEGATIVE, Ur Drug Screen Comment 06/06/22 14:55: WBC 10.4, RBC 4.27, Hgb 12.0, Hct 34.4 L, MCV 80.6 L, MCH 28.1, MCHC 34.9, RDW Std Deviation 38.2, RDW Coeff of Ross 13.3, Plt Count 419, MPV 9.1, Immature Gran % (Auto) 0.300, Neut % (Auto) 63.4, Lymph % (Auto) 31.9, [place] % (Auto) 3.8, Eos % (Auto) 0.2, Baso % (Auto) 0.4, Absolute Neuts (auto) 6.6, Absolute Lymphs (auto) 3.31, Nucleated RBC % 0 06/06/22 14:55: Sodium 137, Potassium 3.3 L, Chloride 96 L, Carbon Dioxide 22.0, Anion Gap 19 H, BUN 23 H, Creatinine 1.59 H, Estim Creat Clear Calc 29.39, Est GFR (MDRD) Af Amer 42 L, Est GFR (MDRD) Non-Af 35 L, BUN/Creatinine Ratio 14.5, Glucose 77, Calcium 8.5, Total Bilirubin 0.50, AST 33, ALT 33, Alkaline Phosphatase 74, Total Protein 7.7, Albumin 4.0, Globulin 3.7, Albumin/Globulin Ratio 1.1 06/06/22 14:55: Ethyl Alcohol < 3.0 Assessment & Plan Assessment/Plan (1) Desire for detoxification: PLAN: Plan 1. Acute alcohol withdrawal in a patient with history of chronic alcohol abuse Patient with underlying severe anxiety, polysubstance use Admit to PCU, continue to monitor on phenobarbital alcohol withdrawal protocol Addiction social work consult 2. Severe anxiety, manifested as severe restlessness and picking of the skin of the fingers/hands, Noticed in recent admission 2 weeks ago for opiate withdrawal Patient has since followed up with primary care doctor and with psychiatrist Started on olanzapine and amitriptyline; patient feels anxiety is much improved Will continue on home anxiolytics -Zoloft, Cymbalta, Buspar 3. Hypertension, controlled, continue hydrochlorothiazide, losartan, metoprolol, Cardizem 4. Type II DM on Trulicity and metformin We will continue metformin, blood glucose checks with insulin sliding scale 5. Nicotine dependence, advised to quit, continue on replacement 6. DVT PPx- Lovenox SC Charges/Coding Visit Charges Inpatient E&M: 62264 Init Hosp L2
[2022-06-06 21:15] VITALS: BP 144/97; PULSE 89; RESP 18; TEMP 37.1; O2SAT 100
[2022-06-06] MEDS: Potassium Chloride Oral Tablet 20 MEQ 40 MEQ PO (21:29)
[2022-06-06 22:58] VITALS: BMI 24.8
[2022-06-06] MEDS: 0.9% Normal Saline 1,000 ML 125 ML IV (23:42)
[2022-06-06] MEDS: 0.9% Saline Lock 10 ML Syringe IV (23:42)
[2022-06-06] MEDS: dilTIAZem CD 180 MG Capsule PO (23:43)
[2022-06-06] MEDS: Amitriptyline 25 MG Tablet 50 MG PO (23:43)
[2022-06-06] MEDS: Gabapentin 300 MG Capsule PO (23:43)
[2022-06-06] MEDS: tiZANidine HCl 2 MG Tablet 6 MG PO (23:43)
[2022-06-06] MEDS: ALPRAZolam 0.5 MG Tablet PO (23:43)
[2022-06-06] MEDS: Phenobarbital 32.4 MG Tablet PO (23:43)
[2022-06-06] MEDS: traZODone 100 MG Tablet PO (23:44)
[2022-06-06] MEDS: Ondansetron 8 MG Tablet PO (23:44)
[2022-06-07] VITALS (7 sets, daily range): BP systolic 121–151; BP diastolic 64–92; PULSE 78–91; RESP 12–18; TEMP 36.6–37.3; O2SAT 96–99
[2022-06-07] MEDS: OLANZapine 5 MG/TAB TAB.RAPDIS PO ×2 (00:04→21:44)
[2022-06-07] MEDS: Sertraline 100 MG Tablet PO ×2 (00:04→21:43)
[2022-06-07] MEDS: busPIRone 15 MG TABLET 30 MG PO ×3 (00:04→21:43)
[2022-06-07 00:10] LABS: Bedside Glucose 128 mg/dL (74-106)
[2022-06-07] MEDS: Phenobarbital 32.4 MG Tablet PO ×6 (03:07→23:52)
[2022-06-07 07:11] LABS: Bedside Glucose 110 mg/dL (74-106)
--- NOTE | 2022-06-07 07:21 | PCM.PN.HOSP ---
Subjective Subjective Patient reports feeling generally unwell and feels anxious and tremulous. Suboptimal appetite. Objective Data Objective Data Vital Signs: Vital Signs Temp Pulse Resp BP Pulse Ox O2 Del Method 98.3 F 80 12 121/64 H 96 Room Air 06/07/22 06:00 06/07/22 06:00 06/07/22 06:00 06/07/22 06:00 06/07/22 06:00 06/07/22 06:00 Oxygen Delivery Method Room Air Weight: 61.717 kg Body Mass Index (BMI) 24.8 Lab / Micro Data Result Diagrams: 06/06/22 14:55 06/06/22 14:55 Labs: Laboratory Results - last 24 hr 06/06/22 13:51: Urine Opiates Screen NEGATIVE, Urine Methadone Screen NEGATIVE, Ur Barbiturates Screen NEGATIVE, Ur Phencyclidine Scrn NEGATIVE, Ur Amphetamines Screen NEGATIVE, MDMA (Ecstasy) Screen NEGATIVE, U Benzodiazepines Scrn POSITIVE H, Urine Cocaine Screen NEGATIVE, U Cannabinoids Screen NEGATIVE, Ur Drug Screen Comment 06/06/22 14:55: WBC 10.4, RBC 4.27, Hgb 12.0, Hct 34.4 L, MCV 80.6 L, MCH 28.1, MCHC 34.9, RDW Std Deviation 38.2, RDW Coeff of Ross 13.3, Plt Count 419, MPV 9.1, Immature Gran % (Auto) 0.300, Neut % (Auto) 63.4, Lymph % (Auto) 31.9, [place] % (Auto) 3.8, Eos % (Auto) 0.2, Baso % (Auto) 0.4, Absolute Neuts (auto) 6.6, Absolute Lymphs (auto) 3.31, Nucleated RBC % 0 06/06/22 14:55: Sodium 137, Potassium 3.3 L, Chloride 96 L, Carbon Dioxide 22.0, Anion Gap 19 H, BUN 23 H, Creatinine 1.59 H, Estim Creat Clear Calc 29.39, Est GFR (MDRD) Af Amer 42 L, Est GFR (MDRD) Non-Af 35 L, BUN/Creatinine Ratio 14.5, Glucose 77, Calcium 8.5, Total Bilirubin 0.50, AST 33, ALT 33, Alkaline Phosphatase 74, Total Protein 7.7, Albumin 4.0, Globulin 3.7, Albumin/Globulin Ratio 1.1 06/06/22 14:55: Ethyl Alcohol < 3.0 06/06/22 23:50: POC Glucose 128 H 06/07/22 06:45: POC Glucose 110 H Physical Exam Narrative General: Alert, oriented HEENT: Atraumatic, normocephalic Eyes: extraocular movements grossly intact Neck: Supple Respiratory: Clear to auscultation bilaterally, normal respiratory effort Cardiovascular: Regular rate and rhythm GI: Soft, nontender, nondistended Extremities: No edema Musculoskeletal: Moving all extremities Neuro: No overt focal neurological deficits Skin: No rashes appreciated Psych: Cooperative Assessment & Plan Assessment/Plan (1) Desire for detoxification: PLAN: Plan 61-year-old female with a history of alcohol abuse, anxiety, hypertension, substance use who was recently discharged 05/25 after admission for acute opioid withdrawal who presented 2/3 with acute alcohol withdrawal x1 day. Her last hospital stay was complicated by severe anxiety, history of ECT, picking the skin of her fingers. Since discharge she has followed up with her primary care physician and started on olanzapine and also followed up with her psychiatrist and psychologist via telemedicine, amitriptyline was resumed yesterday. She drinks about 1/5 a pint of vodka every day and her last drink was the day before admission. In the ED heart rate 127 and blood pressure 185/76. Alcohol was less than 3.0 and urine tox positive for benzo. #Acute alcohol withdraw in the context of chronic alcohol abuse -Admitted for alcohol withdrawal and started on phenobarb taper -Social work consult -On PDMP report received temazepam on 05/30: 7 days of Xanax on 06/05, oxycodone on 05/16 which she appears to fill regularly -We will make Xanax as needed for extreme anxiety, will not continue any opioids especially she was recently here for detox. Continue phenobarb taper. Would advise against polypharmacy on an outpatient basis #CKD stage IIIb -Creatinine has been quite variable since March with unclear baseline -Was 1.24 during last admission and 1.59 this admission however has been 1.74 before that -Receiving normal saline at this time -Hold losartan and avoid nephrotoxic agents #Severe anxiety -Started on olanzapine and amitriptyline as an outpatient recently and feels better -Continue Zoloft, Cymbalta, BuSpar #Polysubstance use -Recently here for opioid detox -UDS only positive for benzodiazepines which she is prescribed though it also appears she is prescribed opioids on an outpatient basis despite being here recently for detox #Hypertension -Was hypertensive in the ED but likely due to alcohol withdrawal -Continue hydrochlorothiazide, metoprolol, Cardizem, hold losartan due to her kidney function #Type 2 diabetes mellitus -Metformin continued -Blood glucose checks with sliding scale insulin #Nicotine dependence -Advised cessation #DVT ppx: Lovenox subcu Sharon Lan MD Time spent in the patient's overall evaluation,decision-making process, review of diagnostic data, adjustment of management, discussion with other providers, nursing nursing and ancillary staff involved in patient's care documentation, 30 Minutes Charges/Coding Visit Charges Inpatient E&M: 21073 Subs Hosp L2
[2022-06-07] MEDS: 0.9% Normal Saline 1,000 ML 125 ML IV (10:05)
[2022-06-07] MEDS: metFORMIN (XR) 500 MG Tablet PO ×2 (10:08→16:55)
[2022-06-07] MEDS: Estradiol 1 MG Tablet 2 MG PO (10:08)
[2022-06-07] MEDS: Thiamine Hydrochloride 100 MG Tablet PO (10:08)
[2022-06-07] MEDS: Montelukast 10 MG Tablet PO (10:09)
[2022-06-07] MEDS: Pantoprazole Sodium 40 MG Tablet PO (10:09)
[2022-06-07] MEDS: hydroCHLOROthiazide 12.5mg 12.5 MG PO (10:09)
[2022-06-07] MEDS: Folic Acid 1 MG Tablet PO (10:09)
[2022-06-07] MEDS: DULoxetine Hcl 20 MG Capsule PO (10:09)
[2022-06-07] MEDS: Metoprolol(XL)Succ 25 MG Tablet 75 MG PO (10:10)
[2022-06-07] MEDS: Enoxaparin 30 MG/0.3 ML Syringe SC (10:10)
[2022-06-07] MEDS: Insulin Lispro 100 UNIT/ML INSULN.PEN SC ×2 (12:24→16:54)
[2022-06-07] MEDS: Glucerna Shake 120 ML LIQUID PO ×2 (12:30→16:58)
[2022-06-07 12:46] LABS: Bedside Glucose 193 mg/dL (74-106)
[2022-06-07] MEDS: Dicyclomine 10 MG Capsule 20 MG PO ×2 (14:27→21:50)
[2022-06-07] MEDS: Gabapentin 300 MG Capsule PO (14:27)
[2022-06-07] MEDS: Ondansetron 8 MG Tablet PO (14:27)
[2022-06-07] MEDS: ALPRAZolam 0.5 MG Tablet 0.25 MG PO (17:03)
[2022-06-07 17:20] LABS: Bedside Glucose 151 mg/dL (74-106)
[2022-06-07] MEDS: tiZANidine HCl 2 MG Tablet 6 MG PO (21:42)
[2022-06-07] MEDS: dilTIAZem CD 180 MG Capsule PO (21:43)
[2022-06-07] MEDS: Atorvastatin Calcium 40 MG Tablet PO (21:43)
[2022-06-07] MEDS: Amitriptyline 25 MG Tablet 50 MG PO (21:43)
[2022-06-07] MEDS: Aspirin 81 MG TAB.CHEW PO (21:43)
[2022-06-07 22:05] LABS: Bedside Glucose 109 mg/dL (74-106)
[2022-06-07] MEDS: traZODone 100 MG Tablet PO (23:52)
[2022-06-08 03:10] VITALS: BP 129/61; PULSE 64; RESP 16; TEMP 36.5; O2SAT 100
[2022-06-08] MEDS: Phenobarbital 32.4 MG Tablet PO ×6 (03:13→23:19)
[2022-06-08] MEDS: 0.9% Saline Lock 10 ML Syringe IV (06:38)
[2022-06-08] MEDS: Ondansetron 8 MG Tablet PO ×2 (06:38→15:02)
[2022-06-08] MEDS: Dicyclomine 10 MG Capsule 20 MG PO ×3 (06:38→21:27)
[2022-06-08 06:49] LABS: Absolute Lymphocyte Count 3.91 X10^3/uL (0.83-4.51); Absolute Neutrophil Count 3.1 X10^3/uL (2.0-7.7); Basophil# 0.04 X10^3/uL; Basophil% 0.5 % (0-1); Eosinophil# 0.43 X10^3/uL; Eosinophils% 5.4 % (0-5); Hemoglobin 10.8 g/dL (12.0-15.0); Lymphocyte # 3.91 X10^3/ul (0.83-4.51); Lymphocyte % 49.2 % (19-41); Mean Corp Hgb Conc 33.8 g/dL (32-36); Mean Corpuscular Hgb 27.9 pg (27.0-32.0); Mean Corpuscular Volume 82.7 fL (81-99); Mean Platelet Vol. 9.4 fl (6.2-12.0); NRBC Flagged by Analyzer 0 % (0-5); Neutrophil # 3.14 X10^3/uL (2.7-7.7); Neutrophil % 39.6 % (47-70); Platelet Count 366 K/mm3 (150-450); RBC Distribution Width CV 13.4 % (11.6-14.6); RBC Distribution Width SD 40.7 fl (35.1-43.9); Red Blood Count 3.87 M/mm3 (4.2-5.4); White Blood Count 7.9 K/mm3 (4.4-11.0)
[2022-06-08 06:51] LABS: Bedside Glucose 103 mg/dL (74-106)
[2022-06-08 07:20] LABS: Anion Gap 7 (5-15); BUN 11 mg/dL (7-18); BUN/Creat Ratio 9.8 RATIO (10-20); Calcium,Total 7.9 mg/dL (8.5-10.1); Chloride 107 mmol/L (98-107); Creatinine, Serum 1.12 mg/dL (0.55-1.02); EST Glomerular Filtration Rate 53 mL/min (>60); Est Glom Filt Rate - Afr Amer 64 mL/min (>60); Estimated Creatinine Clearance 41.72 ml/min; Glucose 123 mg/dL (74-106); Potassium 3.1 mmol/L (3.5-5.1); Sodium Level 141 mmol/L (136-145)
[2022-06-08 09:23] VITALS: BP 150/95; PULSE 85; RESP 18; TEMP 36.6; O2SAT 93
--- NOTE | 2022-06-08 09:29 | ADDICTION ---
TW met with pt to complete ASAM, AUDIT, DUDIT, MSE, and being to D/C plan. Pt reported not feeling well and was unable to fully engage. Pt reported wanting to find out more information on [facility] and [facility] and then schedule an appointment with one of them. TW will provide materials on these two [facility] facilities for f/u.
[2022-06-08] MEDS: Pantoprazole Sodium 40 MG Tablet PO (09:30)
[2022-06-08] MEDS: Montelukast 10 MG Tablet PO (09:30)
[2022-06-08] MEDS: Folic Acid 1 MG Tablet PO (09:30)
[2022-06-08 09:31] VITALS: PULSE 85
[2022-06-08] MEDS: Thiamine Hydrochloride 100 MG Tablet PO (09:31)
[2022-06-08] MEDS: Metoprolol(XL)Succ 25 MG Tablet 75 MG PO (09:31)
[2022-06-08] MEDS: Enoxaparin 30 MG/0.3 ML Syringe SC (09:32)
[2022-06-08] MEDS: DULoxetine Hcl 20 MG Capsule PO (09:32)
[2022-06-08] MEDS: Glucerna Shake 120 ML LIQUID PO ×4 (09:32→21:35)
[2022-06-08] MEDS: hydroCHLOROthiazide 12.5mg 12.5 MG PO (09:33)
[2022-06-08] MEDS: Estradiol 1 MG Tablet 2 MG PO (09:33)
[2022-06-08] MEDS: metFORMIN (XR) 500 MG Tablet PO ×2 (09:34→17:49)
[2022-06-08] MEDS: DiphenhydrAMINE 25 MG Capsule PO (09:40)
[2022-06-08] MEDS: Gabapentin 300 MG Capsule PO (09:40)
[2022-06-08] MEDS: Loperamide 2 MG Capsule PO (09:40)
[2022-06-08] MEDS: busPIRone 15 MG TABLET 30 MG PO ×2 (11:33→21:28)
[2022-06-08 11:45] LABS: Bedside Glucose 125 mg/dL (74-106)
--- NOTE | 2022-06-08 14:04 | PCM.PN.HOSP ---
Subjective Subjective Reports still having some abdominal discomfort and is anxious. Does feel the phenobarb may be helping some but does make her somewhat sleepy. She still weighing her options for rehab inpatient versus outpatient and is open to discussing this Objective Data Objective Data Vital Signs: Vital Signs Temp Pulse Resp BP Pulse Ox O2 Del Method 97.9 F 85 18 150/95 H 93 Room Air 06/08/22 09:23 06/08/22 09:31 06/08/22 09:23 06/08/22 09:23 06/08/22 09:23 06/08/22 09:23 Oxygen Delivery Method Room Air Weight: 61.717 kg Body Mass Index (BMI) 24.8 Intake & Output: Intake and Output for Last 24 Hours 06/06/22 06/07/22 06/08/22 23:59 23:59 23:59 Intake Total 2409.58 / 2409.58 Balance 2409.58 / 2409.58 Medical Nutrition Assessment Dietitian: Malnutrition Criteria Met Start: 06/07/22 11:06 Freq: Status: Active Protocol: Document 06/07/22 11:06 ISIDRO (Rec: 06/07/22 11:07 ISIDRO [id number]) Nutrition Malnutrition Evidence of Malnutrition Exists Yes Malnutrition (severe): Acute Illness/Injury Evidenced By Suboptimal Energy Intake ( Severe),Weight Loss (Moderate) Clinical Problem Acute Disease or Injury Related Malnutrition Etiology moderate, acute malnutrition r /t inadequate oral intake Signs/Symptoms as evidenced by unintentional wt loss of 1.5% x 2 wks/5.4% of UBW and meeting <50% of est nutritional needs x 5 days Status Active Problem Recommendation Dietitian Recommendations/Changes Will liberalize diet to regular d/t signs/symptoms of malnutrition. Will order 4 oz glucerna shake 4x/day w/ medpass for increased nutrition if consumed. Lab / Micro Data Result Diagrams: 06/08/22 05:45 06/08/22 05:45 Labs: Laboratory Results - last 24 hr 06/07/22 16:52: POC Glucose 151 H 06/07/22 21:40: POC Glucose 109 H 06/08/22 05:45: WBC 7.9, RBC 3.87 L, Hgb 10.8 L, Hct 32.0 L, MCV 82.7, MCH 27.9, MCHC 33.8, RDW Std Deviation 40.7, RDW Coeff of Ross 13.4, Plt Count 366, MPV 9.4, Immature Gran % (Auto) 0.300, Neut % (Auto) 39.6 L, Lymph % (Auto) 49.2 H, [place] % (Auto) 5.0, Eos % (Auto) 5.4 H, Baso % (Auto) 0.5, Absolute Neuts (auto) 3.1, Absolute Lymphs (auto) 3.91, Nucleated RBC % 0 06/08/22 05:45: Sodium 141, Potassium 3.1 L, Chloride 107, Carbon Dioxide 27.0, Anion Gap 7, BUN 11, Creatinine 1.12 H, Estim Creat Clear Calc 41.72, Est GFR (MDRD) Af Amer 64, Est GFR (MDRD) Non-Af 53 L, BUN/Creatinine Ratio 9.8 L, Glucose 123 H, Calcium 7.9 L 06/08/22 06:33: POC Glucose 103 06/08/22 11:26: POC Glucose 125 H Physical Exam Narrative General: Alert, oriented HEENT: Atraumatic, normocephalic Eyes: extraocular movements grossly intact Neck: Supple Respiratory: Clear to auscultation bilaterally, normal respiratory effort Cardiovascular: Regular rate and rhythm GI: Soft, nontender, nondistended Extremities: No edema Musculoskeletal: Moving all extremities Neuro: No overt focal neurological deficits Skin: No rashes appreciated Psych: Cooperative Assessment & Plan Assessment/Plan (1) Desire for detoxification: PLAN: Plan 61-year-old female with a history of alcohol abuse, anxiety, hypertension, substance use who was recently discharged 05/25 after admission for acute opioid withdrawal who presented 2/3 with acute alcohol withdrawal x1 day. Her last hospital stay was complicated by severe anxiety, history of ECT, picking the skin of her fingers. Since discharge she has followed up with her primary care physician and started on olanzapine and also followed up with her psychiatrist and psychologist via telemedicine, amitriptyline was resumed yesterday. She drinks about 1/5 a pint of vodka every day and her last drink was the day before admission. In the ED heart rate 127 and blood pressure 185/76. Alcohol was less than 3.0 and urine tox positive for benzo. #Acute alcohol withdraw in the context of chronic alcohol abuse -Admitted for alcohol withdrawal and started on phenobarb taper -Social work consult -On PDMP report received temazepam on 05/30: 7 days of Xanax on 06/05, oxycodone on 05/16 which she appears to fill regularly -We will make Xanax as needed for extreme anxiety, will not continue any opioids especially she was recently here for detox. Continue phenobarb taper. Would advise against polypharmacy on an outpatient basis 06/08: Continue phenobarb taper and supportive care, she was seen by addiction medicine today and had difficulty engaging because she was not feeling well but interested in finding out about [facility]. #CKD stage IIIb -Creatinine has been quite variable since March with unclear baseline -Was 1.24 during last admission and 1.59 this admission however has been 1.74 before that -Receiving normal saline at this time -Hold losartan and avoid nephrotoxic agents 06/08: Improving, continue to encourage good p.o. intake #Severe anxiety -Started on olanzapine and amitriptyline as an outpatient recently and feels better -Continue Zoloft, Cymbalta, BuSpar #Polysubstance use -Recently here for opioid detox -UDS only positive for benzodiazepines which she is prescribed though it also appears she is prescribed opioids on an outpatient basis despite being here recently for detox #Hypertension -Was hypertensive in the ED but likely due to alcohol withdrawal -Continue hydrochlorothiazide, metoprolol, Cardizem, hold losartan due to her kidney function #Type 2 diabetes mellitus -Metformin continued -Blood glucose checks with sliding scale insulin #Nicotine dependence -Advised cessation #DVT ppx: Lovenox subcu Sharon Lan MD Time spent in the patient's overall evaluation,decision-making process, review of diagnostic data, adjustment of management, discussion with other providers, nursing nursing and ancillary staff involved in patient's care documentation, 30 Minutes Charges/Coding Visit Charges Inpatient E&M: 80770 Subs Hosp L2
[2022-06-08] MEDS: Potassium Chloride Oral Tablet 20 MEQ 60 MEQ PO (14:58)
[2022-06-08 15:00] VITALS: BP 139/80; PULSE 80; RESP 18; TEMP 37.1; O2SAT 94
[2022-06-08 16:55] LABS: Bedside Glucose 115 mg/dL (74-106)
[2022-06-08 21:13] VITALS: BP 148/98; PULSE 82; RESP 16; TEMP 36.9; O2SAT 100
[2022-06-08] MEDS: ALPRAZolam 0.5 MG Tablet 0.25 MG PO (21:27)
[2022-06-08] MEDS: dilTIAZem CD 180 MG Capsule PO (21:29)
[2022-06-08] MEDS: Amitriptyline 25 MG Tablet 50 MG PO (21:29)
[2022-06-08] MEDS: Atorvastatin Calcium 40 MG Tablet PO (21:29)
[2022-06-08] MEDS: tiZANidine HCl 2 MG Tablet 6 MG PO (21:30)
[2022-06-08] MEDS: Aspirin 81 MG TAB.CHEW PO (21:30)
[2022-06-08] MEDS: Sertraline 100 MG Tablet PO (21:31)
[2022-06-08] MEDS: OLANZapine 5 MG/TAB TAB.RAPDIS PO (21:31)
[2022-06-08 21:41] LABS: Bedside Glucose 99 mg/dL (74-106)
[2022-06-08 22:58] LABS: Hemoglobin A1c 5.8 % (3.8-5.6)
[2022-06-08] MEDS: traZODone 100 MG Tablet PO (23:19)
[2022-06-08] MEDS: Mag Hydrox/Al Hydrox/Simeth 30 ML UDC PO (23:19)
[2022-06-09 03:08] VITALS: BP 144/80; PULSE 66; RESP 16; TEMP 36.6; O2SAT 99
[2022-06-09] MEDS: Phenobarbital 32.4 MG Tablet PO ×4 (03:10→18:52)
[2022-06-09 06:50] LABS: Bedside Glucose 86 mg/dL (74-106)
--- NOTE | 2022-06-09 08:20 | PCM.PN.HOSP ---
Subjective Subjective Patient is a 61-year-old lady with history of polysubstance abuse admitted with acute alcohol withdrawal Objective Data Objective Data Vital Signs: Vital Signs Temp Pulse Resp BP Pulse Ox O2 Del Method 97.9 F 66 16 144/80 H 99 Room Air 06/09/22 03:08 06/09/22 03:08 06/09/22 03:08 06/09/22 03:08 06/09/22 03:08 06/09/22 03:08 Oxygen Delivery Method Room Air Weight: 61.717 kg Body Mass Index (BMI) 24.8 Intake & Output: Intake and Output for Last 24 Hours 06/07/22 06/08/22 06/09/22 23:59 23:59 23:59 Intake Total 2409.58 / 2409.58 Balance 2409.58 / 2409.58 Medical Nutrition Assessment Dietitian: Malnutrition Criteria Met Start: 06/07/22 11:06 Freq: Status: Active Protocol: Document 06/07/22 11:06 ISIDRO (Rec: 06/07/22 11:07 ISIDRO [id number]) Nutrition Malnutrition Evidence of Malnutrition Exists Yes Malnutrition (severe): Acute Illness/Injury Evidenced By Suboptimal Energy Intake ( Severe),Weight Loss (Moderate) Clinical Problem Acute Disease or Injury Related Malnutrition Etiology moderate, acute malnutrition r /t inadequate oral intake Signs/Symptoms as evidenced by unintentional wt loss of 1.5% x 2 wks/5.4% of UBW and meeting <50% of est nutritional needs x 5 days Status Active Problem Recommendation Dietitian Recommendations/Changes Will liberalize diet to regular d/t signs/symptoms of malnutrition. Will order 4 oz glucerna shake 4x/day w/ medpass for increased nutrition if consumed. Lab / Micro Data Result Diagrams: 06/08/22 05:45 06/08/22 05:45 Labs: Laboratory Results - last 24 hr 06/08/22 11:26: POC Glucose 125 H 06/08/22 16:36: POC Glucose 115 H 06/08/22 17:51: Hemoglobin A1c 5.8 H 06/08/22 21:18: POC Glucose 99 06/09/22 06:30: POC Glucose 86 Physical Exam Narrative General: Alert, oriented HEENT: Atraumatic, normocephalic Eyes: extraocular movements grossly intact Neck: Supple Respiratory: Clear to auscultation bilaterally, normal respiratory effort Cardiovascular: Regular rate and rhythm GI: Soft, nontender, nondistended Extremities: No edema Musculoskeletal: Moving all extremities Neuro: No overt focal neurological deficits Skin: No rashes appreciated Psych: Cooperative Assessment & Plan Assessment/Plan (1) Desire for detoxification: (2) Anxiety: PLAN: Plan Patient is a 61-year-old lady with history of polysubstance abuse admitted with acute alcohol withdrawal 1. Acute alcohol withdrawal ? Patient has been admitted to regular nursing floor managed with phenobarb taper. Consult placed to 180 to assist with disposition 2. Chronic kidney disease stage IIIb ? Kidney function at baseline 3. Hypertension - Blood pressure controlled, home medications continued with dose adjustment as needed 4. Diabetes mellitus type II -patient's oral hypoglycemics held. Placed on long acting insulin, Accu-Cheks a.c. and at bedtime and covered with sliding scale insulin 5. Depression with severe anxiety -Started on olanzapine and amitriptyline as an outpatient recently and feels better -Continue Zoloft, Cymbalta, BuSpar 6. Tobacco dependence - Counseled on cessation, offered nicotine patch for tobacco cravings 7. DVT prophylaxis - On enoxaparin Time spent in the patient's overall evaluation,decision-making process, review of diagnostic data, adjustment of management, discussion with other providers, nursing nursing and ancillary staff involved in patient's care documentation, 36 Minutes Charges/Coding Visit Charges Inpatient E&M: 45542 [facility] Hosp L2
[2022-06-09 08:51] VITALS: BP 147/73; PULSE 78; RESP 18; TEMP 36.6; O2SAT 100
[2022-06-09] MEDS: metFORMIN (XR) 500 MG Tablet PO ×2 (08:59→16:46)
[2022-06-09] MEDS: Folic Acid 1 MG Tablet PO (08:59)
[2022-06-09] MEDS: Thiamine Hydrochloride 100 MG Tablet PO (08:59)
[2022-06-09] MEDS: Glucerna Shake 120 ML LIQUID PO ×2 (08:59→13:36)
[2022-06-09 09:00] VITALS: PULSE 78
[2022-06-09] MEDS: Metoprolol(XL)Succ 25 MG Tablet 75 MG PO (09:00)
[2022-06-09] MEDS: busPIRone 15 MG TABLET 30 MG PO ×2 (09:00→21:26)
[2022-06-09] MEDS: Estradiol 1 MG Tablet 2 MG PO (09:00)
[2022-06-09] MEDS: hydroCHLOROthiazide 12.5mg 12.5 MG PO (09:00)
[2022-06-09] MEDS: DULoxetine Hcl 20 MG Capsule PO (09:00)
[2022-06-09] MEDS: Montelukast 10 MG Tablet PO (09:01)
[2022-06-09] MEDS: Pantoprazole Sodium 40 MG Tablet PO (09:01)
[2022-06-09] MEDS: Enoxaparin 30 MG/0.3 ML Syringe SC (09:01)
[2022-06-09 13:28] LABS: Bedside Glucose 141 mg/dL (74-106)
--- NOTE | 2022-06-09 14:01 | ADDICTION ---
TW met with pt to work on d/c planning. Pt stated she reviewed the material provided to her the previous day and she wants to f/u with [facility]. Pt was unwilling to schedule an appt together with TW due to needing to check her calendar of when her other appointments are for her PCP and psychiatrist. TW spent an hour with pt discussing recovery, coping skills, finding meaning in life, and offering resources. TW provided pt with The Addiction Workbook during the remainder of her time here. TW also encouraged pt to engage in the recovery community to include AA/NA. Pt noted no transportation needs at this time and will d/c home.
[2022-06-09] MEDS: Mag Hydrox/Al Hydrox/Simeth 30 ML UDC PO (14:27)
[2022-06-09] MEDS: hydrOXYzine PAM 25 MG Capsule 50 MG PO (14:27)
[2022-06-09 15:00] VITALS: BP 162/91; PULSE 86; RESP 18; TEMP 36.6; O2SAT 100
[2022-06-09] MEDS: Insulin Lispro 100 UNIT/ML INSULN.PEN SC (16:46)
[2022-06-09 17:51] LABS: Bedside Glucose 175 mg/dL (74-106)
[2022-06-09] MEDS: Amitriptyline 25 MG Tablet 50 MG PO (21:25)
[2022-06-09] MEDS: tiZANidine HCl 2 MG Tablet 6 MG PO (21:25)
[2022-06-09] MEDS: Atorvastatin Calcium 40 MG Tablet PO (21:25)
[2022-06-09] MEDS: Aspirin 81 MG TAB.CHEW PO (21:26)
[2022-06-09] MEDS: OLANZapine 5 MG/TAB TAB.RAPDIS PO (21:26)
[2022-06-09] MEDS: dilTIAZem CD 180 MG Capsule PO (21:27)
[2022-06-09] MEDS: Sertraline 100 MG Tablet PO (21:27)
[2022-06-09] MEDS: traZODone 100 MG Tablet PO (21:37)
[2022-06-09] MEDS: Dicyclomine 10 MG Capsule 20 MG PO (21:37)
[2022-06-09] MEDS: Ondansetron 8 MG Tablet PO (21:37)
[2022-06-09 21:46] VITALS: BP 142/91; PULSE 86; RESP 18; TEMP 37.2; O2SAT 98
[2022-06-09] MEDS: ALPRAZolam 0.5 MG Tablet 0.25 MG PO (22:27)
[2022-06-09 22:35] LABS: Bedside Glucose 109 mg/dL (74-106)
[2022-06-10] MEDS: Phenobarbital 32.4 MG Tablet PO ×3 (01:29→12:56)
[2022-06-10 06:26] LABS: Absolute Lymphocyte Count 4.47 X10^3/uL (0.83-4.51); Absolute Neutrophil Count 6.4 X10^3/uL (2.0-7.7); Basophil# 0.04 X10^3/uL; Basophil% 0.3 % (0-1); Eosinophil# 0.42 X10^3/uL; Eosinophils% 3.5 % (0-5); Hematocrit 30.5 % (37-47); Hemoglobin 10.2 g/dL (12.0-15.0); Lymphocyte # 4.47 X10^3/ul (0.83-4.51); Lymphocyte % 37.5 % (19-41); Mean Corp Hgb Conc 33.4 g/dL (32-36); Mean Corpuscular Hgb 27.5 pg (27.0-32.0); Mean Corpuscular Volume 82.2 fL (81-99); Mean Platelet Vol. 9.4 fl (6.2-12.0); Monocyte# 0.52 X10^3/uL; Monocyte% 4.4 % (0-10); NRBC Flagged by Analyzer 0 % (0-5); Neutrophil # 6.41 X10^3/uL (2.7-7.7); Neutrophil % 53.8 % (47-70); Platelet Count 344 K/mm3 (150-450); RBC Distribution Width CV 13.5 % (11.6-14.6); RBC Distribution Width SD 40.3 fl (35.1-43.9); Red Blood Count 3.71 M/mm3 (4.2-5.4); White Blood Count 11.9 K/mm3 (4.4-11.0)
[2022-06-10 06:54] VITALS: BP 158/92; PULSE 91; RESP 16; TEMP 36.5; O2SAT 100
[2022-06-10 07:11] LABS: Bedside Glucose 97 mg/dL (74-106)
[2022-06-10 07:17] LABS: AST(SGOT) 18 U/L (15-37); Alanine Aminotransfer ALT/SGPT 26 U/L (13-56); Alkaline Phosphatase 55 U/L (45-117); Anion Gap 8 (5-15); BUN 13 mg/dL (7-18); BUN/Creat Ratio 13.8 RATIO (10-20); Bilirubin, Direct 0.07 mg/dL (0.00-0.30); Calcium,Total 8.3 mg/dL (8.5-10.1); Chloride 103 mmol/L (98-107); Creatinine, Serum 0.94 mg/dL (0.55-1.02); EST Glomerular Filtration Rate 64 mL/min (>60); Est Glom Filt Rate - Afr Amer 78 mL/min (>60); Estimated Creatinine Clearance 49.71 ml/min; Globulin 3.2 g/dL (2.2-4.2); Glucose 84 mg/dL (74-106); Magnesium 1.3 mg/dL (1.6-2.6); Phosphorus 1.1 mg/dL (2.5-4.9); Potassium 3.5 mmol/L (3.5-5.1); Protein, Total 6.2 g/dL (6.4-8.2); Sodium Level 139 mmol/L (136-145)
--- NOTE | 2022-06-10 08:08 | PCM.PN.HOSP ---
Subjective Subjective Patient seen with significant electrolyte abnormalities. Plan is for patient to be discharged home following correction of her electrolyte abnormality Objective Data Objective Data Vital Signs: Vital Signs Temp Pulse Resp BP Pulse Ox O2 Del Method 97.7 F L 91 16 158/92 H 100 Room Air 06/10/22 06:54 06/10/22 06:54 06/10/22 06:54 06/10/22 06:54 06/10/22 06:54 06/10/22 07:42 Oxygen Delivery Method Room Air Weight: 61.717 kg Body Mass Index (BMI) 24.8 Medical Nutrition Assessment Dietitian: Malnutrition Criteria Met Start: 06/07/22 11:06 Freq: Status: Active Protocol: Document 06/07/22 11:06 ISIDRO (Rec: 06/07/22 11:07 [facility] [id number]) Nutrition Malnutrition Evidence of Malnutrition Exists Yes Malnutrition (severe): Acute Illness/Injury Evidenced By Suboptimal Energy Intake ( Severe),Weight Loss (Moderate) Clinical Problem Acute Disease or Injury Related Malnutrition Etiology moderate, acute malnutrition r /t inadequate oral intake Signs/Symptoms as evidenced by unintentional wt loss of 1.5% x 2 wks/5.4% of UBW and meeting <50% of est nutritional needs x 5 days Status Active Problem Recommendation Dietitian Recommendations/Changes Will liberalize diet to regular d/t signs/symptoms of malnutrition. Will order 4 oz glucerna shake 4x/day w/ medpass for increased nutrition if consumed. Lab / Micro Data Result Diagrams: 06/10/22 05:34 06/10/22 05:34 Labs: Laboratory Results - last 24 hr 06/09/22 12:04: POC Glucose 141 H 06/09/22 16:44: POC Glucose 175 H 06/09/22 21:40: POC Glucose 109 H 06/10/22 05:34: WBC 11.9 H, RBC 3.71 L, Hgb 10.2 L, Hct 30.5 L, MCV 82.2, MCH 27.5, MCHC 33.4, RDW Std Deviation 40.3, RDW Coeff of Ross 13.5, Plt Count 344, MPV 9.4, Immature Gran % (Auto) 0.500, Neut % (Auto) 53.8, Lymph % (Auto) 37.5, [place] % (Auto) 4.4, Eos % (Auto) 3.5, Baso % (Auto) 0.3, Absolute Neuts (auto) 6.4, Absolute Lymphs (auto) 4.47, Nucleated RBC % 0 06/10/22 05:34: Sodium 139, Potassium 3.5, Chloride 103, Carbon Dioxide 28.0, Anion Gap 8, BUN 13, Creatinine 0.94, Estim Creat Clear Calc 49.71, Est GFR (MDRD) Af Amer 78, Est GFR (MDRD) Non-Af 64, BUN/Creatinine Ratio 13.8, Glucose 84, Calcium 8.3 L, Phosphorus 1.1 L*, Magnesium 1.3 L, Total Bilirubin 0.20, Direct Bilirubin 0.07, AST 18, ALT 26, Alkaline Phosphatase 55, Total Protein 6.2 L, Albumin 3.0 L, Globulin 3.2 06/10/22 06:47: POC Glucose 97 Physical Exam Narrative General: Alert, oriented HEENT: Atraumatic, normocephalic Eyes: extraocular movements grossly intact Neck: Supple Respiratory: Clear to auscultation bilaterally, normal respiratory effort Cardiovascular: Regular rate and rhythm GI: Soft, nontender, nondistended Extremities: No edema Musculoskeletal: Moving all extremities Neuro: No overt focal neurological deficits Skin: No rashes appreciated Psych: Cooperative Assessment & Plan Assessment/Plan (1) Desire for detoxification: (2) Anxiety: PLAN: Plan Patient is a 61-year-old lady with history of polysubstance abuse admitted with acute alcohol withdrawal 1. Acute alcohol withdrawal ? Patient has been admitted to regular nursing floor managed with phenobarb taper. Consult placed to 180 to assist with disposition 2. Chronic kidney disease stage IIIb ? Kidney function at baseline 3. Hypertension - Blood pressure controlled, home medications continued with dose adjustment as needed 4. Diabetes mellitus type II -patient's oral hypoglycemics held. Placed on long acting insulin, Accu-Cheks a.c. and at bedtime and covered with sliding scale insulin 5. Depression with severe anxiety -Started on olanzapine and amitriptyline as an outpatient recently and feels better -Continue Zoloft, Cymbalta, BuSpar 6. Tobacco dependence - Counseled on cessation, offered nicotine patch for tobacco cravings 7. DVT prophylaxis - On enoxaparin 8. Hypophosphatemia -corrected per protocol 9. Hypomagnesemia ? Corrected per protocol 10. ?Acute moderate malnutrition r/t inadequate oral intake as evidenced by unintentional wt loss of 1.5% x 2 wks/5.4% of UBW and meeting <50% of est nutritional needs x 5 days. Will liberalize diet to regular d/t signs/symptoms of malnutrition. Will order 4 oz glucerna shake 4x/day w/ medpass for increased nutrition if consumed. Time spent in the patient's overall evaluation,decision-making process, review of diagnostic data, adjustment of management, discussion with other providers, nursing nursing and ancillary staff involved in patient's care documentation, 36 Minutes Charges/Coding Visit Charges Inpatient E&M: 51151 Subs Hosp L2 Reason for Visit Reason for Visit: Diagnoses Anxiety disorder, unspecified (06/06/22)
--- NOTE | 2022-06-10 09:43 | PCM.DC.SUM ---
Providers Date of Admission: 06/06/22 Date of Discharge: 06/10/22 Primary Care Physician: Dr. Rach Gaona MD Reason For Visit: ACUTE ALCOHOL WITHDRAWAL Diagnosis Discharge Diagnosis (1) Desire for detoxification: Status: Acute (2) Anxiety: Status: Acute Code(s): F41.9 - Anxiety disorder, unspecified Plan Patient is a 61-year-old lady with history of polysubstance abuse admitted with acute alcohol withdrawal 1. Acute alcohol withdrawal ? Patient has been admitted to regular nursing floor managed with phenobarb taper. Consult placed to 180 to assist with disposition 2. Chronic kidney disease stage IIIb ? Kidney function at baseline 3. Hypertension - Blood pressure controlled, home medications continued with dose adjustment as needed 4. Diabetes mellitus type II -patient's oral hypoglycemics held. Placed on long acting insulin, Accu-Cheks a.c. and at bedtime and covered with sliding scale insulin 5. Depression with severe anxiety -Started on olanzapine and amitriptyline as an outpatient recently and feels better -Continue Zoloft, Cymbalta, BuSpar 6. Tobacco dependence - Counseled on cessation, offered nicotine patch for tobacco cravings 7. DVT prophylaxis - On enoxaparin 8. Hypophosphatemia -corrected per protocol 9. Hypomagnesemia ? Corrected per protocol 10. ?Acute moderate malnutrition r/t inadequate oral intake as evidenced by unintentional wt loss of 1.5% x 2 wks/5.4% of UBW and meeting <50% of est nutritional needs x 5 days. Will liberalize diet to regular d/t signs/symptoms of malnutrition. Will order 4 oz glucerna shake 4x/day w/ medpass for increased nutrition if consumed. Time spent in the patient's overall evaluation,decision-making process, review of diagnostic data, adjustment of management, discussion with other providers, nursing nursing and ancillary staff involved in patient's care documentation, 36 Minutes Medications at Discharge Home Medications aspirin 81 mg chewable tablet 81 mg PO DAILY@199908/15/13 buspirone 30 mg tablet 30 mg PO BID 08/15/13 duloxetine 20 mg capsule,delayed release 20 mg PO DAILY 08/15/13 estradiol 2 mg tablet (Estrace) 2 mg PO DAILY 08/15/13 montelukast 10 mg tablet 10 mg PO DAILY 08/15/13 tizanidine 4 mg tablet (Zanaflex) 6 mg PO QHS 08/15/13 amitriptyline 50 mg tablet 50 mg PO QHS 06/11/20 diclofenac sodium 3 % topical gel 1 applicatio TP DAILY PRN PRN arthritis 06/11/20 diphenhydramine HCl 25 mg capsule 25 mg PO TID PRN PRN Itching 06/11/20 hydroxyzine HCl 25 mg tablet 25 - 50 mg PO Q6H PRN anxiety/itching 06/11/20 sertraline 100 mg tablet 100 mg PO QHS 06/11/20 atorvastatin 40 mg tablet 40 mg PO DAILY #30 tabs 06/12/20 pantoprazole 40 mg tablet,delayed release 40 mg PO DAILY #30 tabs 06/12/20 albuterol sulfate 90 mcg/actuation aerosol inhaler (Ventolin HFA) 2 puff inhalation Q4H PRN PRN Wheezing ##1 03/25/21 losartan 25 mg tablet 25 mg PO DAILY 03/25/21 metoprolol tartrate 25 mg tablet 75 mg PO DAILY 03/25/21 ondansetron HCl 4 mg tablet 4 mg PO Q6H PRN nausea and vomiting #20 tabs 01/31/22 alprazolam 0.5 mg tablet 0.5 mg PO BID ANXIETY 06/06/22 diltiazem HCl 180 mg PO/SL DAILY htn 06/06/22 dulaglutide 1.5 mg/0.5 mL subcutaneous pen injector (Trulicity) 1.5 mg subcut LONG DM 06/06/22 hydrochlorothiazide 12.5 mg capsule 12.5 mg PO DAILY HTN 06/06/22 metformin 500 mg tablet,extended release 24 hr 500 mg PO BIDCM DM 06/06/22 olanzapine 2.5 mg tablet 5 mg PO QHS ANXIETY/SKIN PICKING 06/06/22 magnesium chloride 64 mg (magnesium chloride) tablet,delayed release (Mag 64) 128 mg PO BID #60 tabs 06/10/22 potassium, sodium phosphates 280 mg-160 mg-250 mg oral powder packet 1 packet PO TID #90 ea 06/10/22 Hospital Course Summary of Care Provided Minutes Spent on Discharge: 36 Physical Exam Narrative General: Alert, oriented HEENT: Atraumatic, normocephalic Eyes: extraocular movements grossly intact Neck: Supple Respiratory: Clear to auscultation bilaterally, normal respiratory effort Cardiovascular: Regular rate and rhythm GI: Soft, nontender, nondistended Extremities: No edema Musculoskeletal: Moving all extremities Neuro: No overt focal neurological deficits Skin: No rashes appreciated Psych: Cooperative Medical Records Data Medical Nutrition Assessment Dietitian: Malnutrition Criteria Met Start: 06/07/22 11:06 Freq: Status: Active Protocol: Document 06/07/22 11:06 [facility] (Rec: 06/07/22 11:07 [facility] [id number]) Nutrition Malnutrition Evidence of Malnutrition Exists Yes Malnutrition (severe): Acute Illness/Injury Evidenced By Suboptimal Energy Intake ( Severe),Weight Loss (Moderate) Clinical Problem Acute Disease or Injury Related Malnutrition Etiology moderate, acute malnutrition r /t inadequate oral intake Signs/Symptoms as evidenced by unintentional wt loss of 1.5% x 2 wks/5.4% of UBW and meeting <50% of est nutritional needs x 5 days Status Active Problem Recommendation Dietitian Recommendations/Changes Will liberalize diet to regular d/t signs/symptoms of malnutrition. Will order 4 oz glucerna shake 4x/day w/ medpass for increased nutrition if consumed. Weight / BMI Weight Weight: 61.717 kg Body Mass Index (BMI) 24.8 ABG / Lab / Microbiology Data Result Diagrams: 06/10/22 05:34 06/10/22 05:34 Laboratory: Laboratory Results - last 24 hr 06/09/22 12:04: POC Glucose 141 H 06/09/22 16:44: POC Glucose 175 H 06/09/22 21:40: POC Glucose 109 H 06/10/22 05:34: WBC 11.9 H, RBC 3.71 L, Hgb 10.2 L, Hct 30.5 L, MCV 82.2, MCH 27.5, MCHC 33.4, RDW Std Deviation 40.3, RDW Coeff of Ross 13.5, Plt Count 344, MPV 9.4, Immature Gran % (Auto) 0.500, Neut % (Auto) 53.8, Lymph % (Auto) 37.5, [place] % (Auto) 4.4, Eos % (Auto) 3.5, Baso % (Auto) 0.3, Absolute Neuts (auto) 6.4, Absolute Lymphs (auto) 4.47, Nucleated RBC % 0 06/10/22 05:34: Sodium 139, Potassium 3.5, Chloride 103, Carbon Dioxide 28.0, Anion Gap 8, BUN 13, Creatinine 0.94, Estim Creat Clear Calc 49.71, Est GFR (MDRD) Af Amer 78, Est GFR (MDRD) Non-Af 64, BUN/Creatinine Ratio 13.8, Glucose 84, Calcium 8.3 L, Phosphorus 1.1 L*, Magnesium 1.3 L, Total Bilirubin 0.20, Direct Bilirubin 0.07, AST 18, ALT 26, Alkaline Phosphatase 55, Total Protein 6.2 L, Albumin 3.0 L, Globulin 3.2 06/10/22 06:47: POC Glucose 97 D/C Instructions Discharge Diet: 1800 Calorie Control Diet Discharge Activity: Return to Normal Activity Call your doctor if you observe: Fever of 101 or Higher, Shortness of breath, Fainting spells and Chest pain Meaningful Use Info Meaningful Use Diagnoses (Choose all that apply): None applicable Discharge Plan Admission Admit Date/Time: 06/06/22 20:51 Attending Provider: Flynn Gunderson Primary Care Provider: Rach Gaona Consulting Providers: Vivian Cook ; Sharon Lan Discharge Orders/Prescriptions Prescriptions: New potassium, sodium phosphates 280-160-250 mg Powder In Packet 1 packet PO TID Qty: 90 0RF Mag 64 64 mg Tablet,Delayed Release (Dr/Ec) 128 mg PO BID Qty: 60 0RF Continued tizanidine [Zanaflex] 4 MG tablet 6 mg PO QHS buspirone 30 MG tablet 30 mg PO BID aspirin 81 MG tablet,chewable 81 mg PO DAILY@2000 estradiol [Estrace] 2 MG tablet 2 mg PO DAILY montelukast 10 MG tablet 10 mg PO DAILY duloxetine 20 MG capsule 20 mg PO DAILY sertraline 100 MG tablet 100 mg PO QHS diclofenac sodium 100 GM gel 1 applicatio TP DAILY PRN PRN (Reason: arthritis) amitriptyline 50 MG tablet 50 mg PO QHS diphenhydramine HCl 25 MG capsule 25 mg PO TID PRN PRN (Reason: Itching) hydroxyzine HCl 25 MG tablet 25 - 50 mg PO Q6H PRN (Reason: anxiety/itching) pantoprazole 40 MG tablet 40 mg PO DAILY Qty: 30 0RF atorvastatin 40 MG tablet 40 mg PO DAILY Qty: 30 0RF losartan 25 mg tablet 25 mg PO DAILY metoprolol tartrate 25 MG tablet 75 mg PO DAILY albuterol sulfate [Ventolin HFA] 1 INHALER inhaler 2 puff inhalation Q4H PRN PRN (Reason: Wheezing) Qty: 1 0RF ondansetron HCl 4 mg tablet 4 mg PO Q6H PRN (Reason: nausea and vomiting) Qty: 20 0RF olanzapine 2.5 mg tablet 5 mg PO QHS Label Comments: TAKE 1 TABLET BY MOUTH DAILY AT BEDTIME. FOR SKIN PICKING AND INSOMNIA alprazolam 0.5 mg tablet 0.5 mg PO BID Label Comments: TAKE 1 TABLET BY MOUTH TWICE DAILY NEEDED FOR ANXIETY FOR UP TO 30 DAYS. hydrochlorothiazide 12.5 mg capsule 12.5 mg PO DAILY Label Comments: TAKE 1 CAPSULE BY MOUTH ONCE DAILY metformin 500 mg tablet extended release 24 hr 500 mg PO BIDCM Label Comments: TAKE 1 TABLET BY MOUTH TWICE A DAY WITH MEALS Trulicity 1.5 mg/0.5 mL pen injector 1.5 mg SUBCUT LONG Label Comments: INJECT 1.5 MG SUBCUTANEOUSLY ONE TIME A WEEK. diltiazem HCl 180 mg PO/SL DAILY Referrals / Follow Up: Rach Gaona MD [Primary Care Provider] - Disposition Disposition (needs filled in before D/C Order can be placed): Home, Self Care Charges/Coding Visit Charges Inpatient E&M: 82304 Disch Hosp >30min
[2022-06-10] MEDS: Magnesium Sulfate 4gm/100mL 4 GM/100 ML IV.SOLN. IV (10:02)
[2022-06-10] MEDS: 0.9% Saline Lock 10 ML Syringe IV ×2 (10:02→16:58)
[2022-06-10 10:13] VITALS: PULSE 91
[2022-06-10] MEDS: metFORMIN (XR) 500 MG Tablet PO ×2 (10:13→16:19)
[2022-06-10] MEDS: hydroCHLOROthiazide 12.5mg 12.5 MG PO (10:13)
[2022-06-10] MEDS: DULoxetine Hcl 20 MG Capsule PO (10:13)
[2022-06-10] MEDS: busPIRone 15 MG TABLET 30 MG PO (10:13)
[2022-06-10] MEDS: Pantoprazole Sodium 40 MG Tablet PO (10:13)
[2022-06-10] MEDS: Estradiol 1 MG Tablet 2 MG PO (10:13)
[2022-06-10] MEDS: Folic Acid 1 MG Tablet PO (10:13)
[2022-06-10] MEDS: Metoprolol(XL)Succ 25 MG Tablet 75 MG PO (10:13)
[2022-06-10] MEDS: Montelukast 10 MG Tablet PO (10:13)
[2022-06-10] MEDS: Thiamine Hydrochloride 100 MG Tablet PO (10:16)
[2022-06-10] MEDS: Enoxaparin 40 MG/0.4 ML Syringe SC (10:21)
[2022-06-10] MEDS: Magnesium Chloride 64 MG Delay Rel.Tablet 128 MG PO (10:22)
[2022-06-10 12:25] LABS: Bedside Glucose 133 mg/dL (74-106)
[2022-06-10 12:53] VITALS: BP 146/86; PULSE 90; RESP 18; TEMP 36.8; O2SAT 100
[2022-06-10] MEDS: Na Biphos/Potassium Phosphate PACKET 1 PACKET PO (12:57)
[2022-06-10] MEDS: Glucerna Shake 120 ML LIQUID PO (12:57)
[2022-06-10] MEDS: Insulin Lispro 100 UNIT/ML INSULN.PEN SC (16:15)
[2022-06-10 16:19] VITALS: BP 157/95; PULSE 89; RESP 18; TEMP 36.9; O2SAT 99
[2022-06-10 16:35] LABS: Bedside Glucose 164 mg/dL (74-106)
--- NOTE | 2022-06-10 16:46 | NURSING ---
Call from Dr. Wesley asking when pt will be leaving, informed him that she still has 2 hrs on her IV he ordered this am. He said to stop it and let her go.
== END 2022-06-10 17:15 | disposition home or self-care (01) | DRG 897 ==
LOC: ED 16:50 → MS3 21:12
PROVIDERS: Internal Medicine; Admitting Provider Internal Medicine; Emergency Provider Emergency Medicine; PCP Internal Medicine; Visit Provider Internal Medicine
DX: F10.139 Alcohol abuse with withdrawal, unspecified (principal); E44.0 Moderate protein-calorie malnutrition; E11.22 Type 2 diabetes mellitus with diabetic chronic kidney disease; Z79.4 Long term (current) use of insulin; N18.32 Chronic kidney disease, stage 3b; E83.39 Other disorders of phosphorus metabolism; F10.10 Alcohol abuse, uncomplicated; F41.9 Anxiety disorder, unspecified; I12.9 Hypertensive chronic kidney disease with stage 1 through stage 4 chronic kidney disease, or unspecified chronic kidney disease; F17.210 Nicotine dependence, cigarettes, uncomplicated; M79.7 Fibromyalgia; E83.42 Hypomagnesemia; Z79.82 Long term (current) use of aspirin; R63.4 Abnormal weight loss; Z68.24 Body mass index [BMI] 24.0-24.9, adult; F32.A Depression, unspecified; Y90.0 Blood alcohol level of less than 20 mg/100 ml
CPT/HCPCS: 36415; 80048; 80053; 80076; 80307; 82077; 82962; 83036; 83735; 84100; 85025; 97802; 99283; J7030; J7040; A4216

== ENCOUNTER 2022-11-22 14:16 | Inpatient (IN) | payer MEDICARE, SELFPAY ==
[2022-11-22 14:17] VITALS: BP 147/82; PULSE 88; RESP 16; TEMP 36.9; O2SAT 100; BMI 24.3
--- NOTE | 2022-11-22 15:03 | EKG12_ITS ---
Test Reason : PALPS Blood Pressure : / mmHG Vent. Rate : 076 BPM Atrial Rate : 076 BPM P-R Int : 256 ms QRS Dur : 088 ms QT Int : 412 ms P-R-T Axes : 061 -56 032 degrees QTc Int : 463 ms Sinus rhythm with 1st degree A-V block Left axis deviation Low voltage QRS Inferior infarct , age undetermined Cannot rule out Anterior infarct , age undetermined Abnormal ECG Confirmed by DARRELL POST, FRANCK ([id number]), design editor DREW DRAKE ([id number]) on 11/24/2022 12:34:21 PM Referred By: Confirmed By:FRANCK RAMÍREZ MD
--- NOTE | 2022-11-22 15:31 | EDS_ITS ---
HPI History of Present Illness Chief Complaint: ETOH Intox Narrative Narrative: 61-year-old female presenting for detox from alcohol. She states she drinks a couple of wine coolers today and a few shots of whiskey. She does this every day. She states that she wants to detox and has detoxed while in for this. She states she will withdrawal and get the shakes. She denies withdrawal seizures. Patient also stating that she has intermittent chest pain which she describes as chest pressure or somebody standing on my chest. This has been coming and going for about 4 months. She states she was post to see a [facility] national accounts sales but the national accounts sales canceled and she has not made follow-up. He states she does not have any history of [place]. She states she has a family history of heart disease. She has diabetes, hypertension, hyperlipidemia. [facility] Medical History Alcohol abuse Alcohol use disorder, moderate, in early remission Anxiety Anxiety and depression Bipolar 1 disorder Bipolar disorder Chronic back pain Depression Diabetes Fibromyalgia GERD (gastroesophageal reflux disease) Hiatus hernia Hypertension Hypertension Osteoporosis PTSD (post-traumatic stress disorder) Smoker Substance abuse Home Medications aspirin 81 mg chewable tablet 81 mg PO DAILY@199908/15/13 [History Last Taken 06/06/22] estradiol 2 mg tablet (Estrace) 2 mg PO DAILY 08/15/13 [History Last Taken 06/06/22] montelukast 10 mg tablet 10 mg PO DAILY 08/15/13 [History Last Taken 06/06/22] tizanidine 4 mg tablet (Zanaflex) 6 mg PO QHS 08/15/13 [History Last Taken 06/05/22] diclofenac sodium 3 % topical gel 1 applicatio TP DAILY PRN PRN arthritis 06/11/20 [History Last Taken 06/06/22] diphenhydramine HCl 25 mg capsule 25 mg PO TID PRN PRN Itching 06/11/20 [History Last Taken 06/10/20] hydroxyzine HCl 25 mg tablet 25 - 50 mg PO Q6H PRN anxiety/itching 06/11/20 [History Last Taken 06/06/22] atorvastatin 40 mg tablet 40 mg PO DAILY #30 tabs 06/12/20 [Rx Last Taken 06/06/22] pantoprazole 40 mg tablet,delayed release 40 mg PO DAILY #30 tabs 06/12/20 [Rx Last Taken 06/05/22] albuterol sulfate 90 mcg/actuation aerosol inhaler (Ventolin HFA) 2 puff inhalation Q4H PRN PRN Wheezing ##1 03/25/21 [Rx Last Taken 2 Days Ago ~06/04/22] losartan 25 mg tablet 25 mg PO DAILY 03/25/21 [History Last Taken 06/06/22] metoprolol tartrate 25 mg tablet 75 mg PO DAILY 03/25/21 [History Last Taken 06/06/22] ondansetron HCl 4 mg tablet 4 mg PO Q6H PRN nausea and vomiting #20 tabs 01/31/22 [Rx Last Taken 06/05/22] diltiazem HCl 180 mg PO/SL QHS htn 06/06/22 [History Last Taken 06/05/22 22:00] hydrochlorothiazide 12.5 mg capsule 12.5 mg PO DAILY HTN 06/06/22 [History Last Taken 06/06/22] metformin 500 mg tablet,extended release 24 hr 500 mg PO BIDCM DM 06/06/22 [History Last Taken 06/06/22] buspirone 30 mg tablet 30 mg PO BID #30 tabs 10/06/22 [Rx Last Taken Unknown] clonazepam 0.5 mg tablet 0.5 mg PO BID 30 days #60 tabs 10/06/22 [Rx Last Taken Unknown] olanzapine 2.5 mg tablet 2.5 mg PO DAILY #30 tabs 10/06/22 [Rx Last Taken Unknown] sertraline 100 mg tablet 100 mg PO QHS 90 days #90 tabs 10/06/22 [Rx Last Taken Unknown] mirtazapine 30 mg tablet See Rx Instructions .Route .COMPLEX #90 tabs 10/13/22 [Rx Last Taken Unknown] Allergy/AdvReac Type Severity Reaction Status Date / Time Penicillins Allergy Mild Itching Verified 11/22/22 14:21 banana Allergy Food Verified 11/22/22 14:21 Allergy codeine Allergy Itching Verified 11/22/22 14:21 benzonatate AdvReac eye pain Verified 11/22/22 14:21 [From Trey Murillo] Surgical History History of bilateral breast reduction surgery History of History of hemorrhoidectomy History of hysterectomy Social History Smoking Status: Current every day smoker tobacco type: cigarettes alcohol intake: current substance use type: does not use ROS ROS ED Constitutional Constitutional ED: Denies chills or fever(s) Eyes Eyes: Denies change in vision or diplopia ENT ENT ED: Denies rhinorrhea or sore throat Cardiovascular Cardiovascular: Reports chest pain and palpitations Respiratory/Chest Respiratory/Chest: Denies cough or dyspnea Gastrointestinal Gastrointestinal: Denies abdominal pain, nausea or vomiting Genitourinary Genitourinary ED: Denies dysuria Musculoskeletal Musculoskeletal: Denies arthralgias or neck pain Integumentary Denies abscess Neurologic Neurologic: Denies headache(s) or paresthesias Psychiatric Psychiatric: Denies anxiety or depression EXAM Physical Exam Const Vital Signs: 11/22/22 14:17 Temperature 98.5 F Temperature Source Temporal Pulse Rate 88 Respiratory Rate 16 Blood Pressure 147/82 H Blood Pressure Mean 103 Pulse Ox 100 Oxygen Delivery Method Room Air Positive well nourished General Appearance ED: NAD; Negative for pallor HEENT Reports moist mucous membranes atraumatic Eyes PERRL and EOMs intact bilaterally Chest Wall inspection of chest normal and palpation of chest normal Resp normal respiratory effort and clear to auscultation bilaterally Auscultation: Negative for rales, rhonchi or wheezes Cardio regular rate and regular rhythm GI soft to palpation and non-tender Neuro oriented x3 and CN's II-XII intact bilaterally Sensorium / Orientation: alert Psych mental status grossly normal Skin General Skin Exam: Negative for jaundice or pallor MDM MDM MDM Narrative Medical decision making narrative: Patient presenting for detox from alcohol. Vital signs are stable she is afebrile. She also complaining of intermittent chest pain for the last 4 months. Differential includes acute coronary syndrome, pneumonia, CHF, pancreatitis, gastritis, GERD, EtOH withdrawal, dehydration, electrolyte abnormalities, anemia. She also has a history of ulcerative colitis she states. CBC to assess white blood cell count, hemoglobin, platelets. CMP to assess liver function, renal function, electrolytes. Shows a normal sinus rhythm with a ventricular rate of 76 bpm with first-degree AV block. No ST elevation or depression.ensitivity troponin and EKG to assess for ischemia. Chest x-ray to rule out pneumonia. CBC shows no leukocytosis. H&H stable. CMP shows worsening renal function with creatinine 1.70. AST and ALT slightly elevated. EKG on my interpretation shows sinus rhythm at 76/min without ST elevation or depression. Chest x-ray my interpretation shows no acute process. Radiology interprets this and agrees. High-sensitivity troponin is 12. Further increased creatinine patient was given a liter of normal saline. Her potassium was slightly low and the hospitalist stated he would replete this upstairs during her detox. EtOH came back at 257. Urine drug screen was negative. Discussed with the hospitalist for admission. Impression: 1. Chest pain 2. EtOH detox 3. acute kidney injury 4. Hypokalemia 5. EtOH toxic Lab Data Attestation: I reviewed the patient's lab results. Labs: Laboratory Results - last 24 hr 11/22/22 15:25 WBC 8.8 RBC 4.21 Hgb 11.9 L Hct 35.4 L MCV 84.1 MCH 28.3 MCHC 33.6 RDW Std Deviation 37.5 RDW Coeff of Ross 12.5 Plt Count 297 MPV 8.8 Immature Gran % (Auto) 0.200 Neut % (Auto) 59.8 Lymph % (Auto) 35.4 [place] % (Auto) 3.7 Eos % (Auto) 0.6 Baso % (Auto) 0.3 Absolute Neuts (auto) 5.3 Absolute Lymphs (auto) 3.13 Nucleated RBC % 0 Sodium 137 Potassium 3.0 L Chloride 102 Carbon Dioxide 21.0 Anion Gap 14 BUN 30 H Creatinine 1.70 H Estim Creat Clear Calc 27.49 Est GFR (MDRD) Af Amer 39 L Est GFR (MDRD) Non-Af 32 L BUN/Creatinine Ratio 17.6 Glucose 93 Calcium 8.1 L Total Bilirubin 0.40 AST 60 H ALT 68 H Alkaline Phosphatase 97 Troponin I High Sens 12 Total Protein 7.4 Albumin 3.6 Globulin 3.8 Albumin/Globulin Ratio 0.9 Urine Opiates Screen NEGATIVE Urine Methadone Screen NEGATIVE Ur Barbiturates Screen NEGATIVE Ur Phencyclidine Scrn NEGATIVE Ur Amphetamines Screen NEGATIVE MDMA (Ecstasy) Screen NEGATIVE U Benzodiazepines Scrn NEGATIVE Urine Cocaine Screen NEGATIVE U Cannabinoids Screen NEGATIVE Ur Drug Screen Comment Ethyl Alcohol 257.0 Radiography Diagnostic Testing: Clinical Impression(s) from Imaging Studies Chest X-Ray 11/22/22 15:55 IMPRESSION: No radiographic evidence of acute cardiopulmonary disease. Electronically Signed: Jhonny Fong MD at 16:12 EDT , Discharge Plan Triage Chief Complaint: ETOH Intox ED Provider: Mauro Langley Dx/Rx/DC Orders Primary Care Provider: Rach Gaona
[2022-11-22] MEDS: LORazepam 2 MG/ML Syringe 1 MG IV (15:43)
[2022-11-22 15:44] LABS: Absolute Lymphocyte Count 3.13 X10^3/uL (0.83-4.51); Absolute Neutrophil Count 5.3 X10^3/uL (2.0-7.7); Basophil# 0.03 X10^3/uL; Basophil% 0.3 % (0-1); Eosinophil# 0.05 X10^3/uL; Eosinophils% 0.6 % (0-5); Hematocrit 35.4 % (37-47); Hemoglobin 11.9 g/dL (12.0-15.0); Lymphocyte # 3.13 X10^3/ul (0.83-4.51); Lymphocyte % 35.4 % (19-41); Mean Corp Hgb Conc 33.6 g/dL (32-36); Mean Corpuscular Hgb 28.3 pg (27.0-32.0); Mean Corpuscular Volume 84.1 fL (81-99); Mean Platelet Vol. 8.8 fl (6.2-12.0); Monocyte# 0.33 X10^3/uL; Monocyte% 3.7 % (0-10); NRBC Flagged by Analyzer 0 % (0-5); Neutrophil # 5.28 X10^3/uL (2.7-7.7); Neutrophil % 59.8 % (47-70); Platelet Count 297 K/mm3 (150-450); RBC Distribution Width CV 12.5 % (11.6-14.6); RBC Distribution Width SD 37.5 fl (35.1-43.9); Red Blood Count 4.21 M/mm3 (4.2-5.4); White Blood Count 8.8 K/mm3 (4.4-11.0)
--- NOTE | 2022-11-22 15:55 | RAD_ITS ---
EXAM: XR CHEST, 1 VIEW CLINICAL INDICATION: chest pain TECHNIQUE: Frontal view of the chest. COMPARISON: 05/23/2022 FINDINGS: LUNGS AND PLEURAL SPACES: Unremarkable. No consolidation or edema. No pneumothorax. No effusion. HEART: Unremarkable. Cardiac silhouette not enlarged. MEDIASTINUM: Central airways and mediastinal contour are unremarkable. BONES/JOINTS: Unremarkable. SOFT TISSUES: Unremarkable. RAD/Chest 1 View (Portable) IMPRESSION: No radiographic evidence of acute cardiopulmonary disease. Electronically Signed: Jhonny Fong MD at 16:12 EDT ,
[2022-11-22 15:58] LABS: ALB/GLOB Ratio 0.9 RATIO (0.9-2.4); AST(SGOT) 60 U/L (15-37); Alanine Aminotransfer ALT/SGPT 68 U/L (13-56); Albumin, Serum 3.6 g/dL (3.2-5.0); Alkaline Phosphatase 97 U/L (45-117); Anion Gap 14 (5-15); BUN 30 mg/dL (7-18); BUN/Creat Ratio 17.6 RATIO (10-20); Calcium,Total 8.1 mg/dL (8.5-10.1); Chloride 102 mmol/L (98-107); EST Glomerular Filtration Rate 32 mL/min (>60); Est Glom Filt Rate - Afr Amer 39 mL/min (>60); Estimated Creatinine Clearance 27.49 ml/min; Globulin 3.8 g/dL (2.2-4.2); Glucose 93 mg/dL (74-106); Protein, Total 7.4 g/dL (6.4-8.2); Sodium Level 137 mmol/L (136-145); Troponin-I HS 12 pg/mL (3.0-54.0)
[2022-11-22 16:02] LABS: Amphetamine Urine VISTA NEGATIVE (<1000 ng/mL); Barbiturate Urine VISTA NEGATIVE (< 200 ng/mL); Benzodiazepine Urine VISTA NEGATIVE (< 200 ng/mL); Cocaine Urine VISTA NEGATIVE (< 300 ng/mL); Ecstacy Urine VISTA NEGATIVE (< 500 ng/mL); Methadone Urine VISTA NEGATIVE (< 300 ng/mL); PCP Urine VISTA NEGATIVE (< 25 ng/mL); THC Urine VISTA NEGATIVE (< 50 ng/mL); Vista UDS pH Range 5
--- NOTE | 2022-11-22 16:21 | NURSING ---
DR DUPONT FOR DR FRANKLIN
[2022-11-22] MEDS: 0.9% Normal Saline 1,000 ML 999 ML IV (16:25)
[2022-11-22 16:40] VITALS: BP 144/71; PULSE 72; RESP 18; TEMP 36.6; O2SAT 98
[2022-11-22 17:33] VITALS: BMI 24.3
[2022-11-22 17:40] VITALS: BP 145/66; PULSE 81; RESP 18; TEMP 36.5; O2SAT 100
[2022-11-22 18:25] LABS: Bedside Glucose 107 mg/dL (74-106)
--- NOTE | 2022-11-22 18:48 | PCM.HP.STD ---
HPI - General General Date of Admission: 11/22/22 Date of Service: 11/22/22 Chief Complaint: Desiring services for alcohol detox HPI Narrative JIMBO PEREZ, is a 61 F who presents to the emergency room at [facility] requesting services for alcohol detox, patient's last drink was this morning. Patient states she drinks straight whiskey and wine coolers on a daily basis. Patient mention to the emergency room physician that she had some episodic chest pain and she was due to see a [facility] ward assistant but the appointment was canceled and she has not made a repeat appointment. Patient has no complaints of chest pain at the time my examination. Patient's medical history includes bipolar 1 disorder, diabetes, hypertension, PTSD, and anxiety and depression. Labs done in the emergency room showed a normal CBC except for hemoglobin of 11.9, patient's potassium was low at 3, patient's creatinine was elevated at 1.7 and BUN was 30. Patient's AST and ALT were minimally elevated. Patient's blood alcohol level was 257, the rest of her tox screen was negative. Patient will be admitted to [place] [id number], orders were entered using the alcohol detox order set, she will be seen in consultation by addiction social welfare administrator, patient states she wants to do outpatient detox rather than an inpatient detox program when she is released from the hospital. [facility] Medical History Alcohol abuse Alcohol use disorder, moderate, in early remission Anxiety Anxiety and depression Bipolar 1 disorder Bipolar disorder Chronic back pain Depression Diabetes Fibromyalgia GERD (gastroesophageal reflux disease) Hiatus hernia Hypertension Hypertension Osteoporosis PTSD (post-traumatic stress disorder) Smoker Substance abuse Home Medications aspirin 81 mg chewable tablet 81 mg PO DAILY@199908/15/13 [History Last Taken 06/06/22] estradiol 2 mg tablet (Estrace) 2 mg PO DAILY 08/15/13 [History Last Taken 06/06/22] montelukast 10 mg tablet 10 mg PO DAILY 08/15/13 [History Last Taken 06/06/22] tizanidine 4 mg tablet (Zanaflex) 6 mg PO QHS 08/15/13 [History Last Taken 06/05/22] diclofenac sodium 3 % topical gel 1 applicatio TP DAILY PRN PRN arthritis 06/11/20 [History Last Taken 06/06/22] diphenhydramine HCl 25 mg capsule 25 mg PO TID PRN PRN Itching 06/11/20 [History Last Taken 06/10/20] hydroxyzine HCl 25 mg tablet 25 - 50 mg PO Q6H PRN anxiety/itching 06/11/20 [History Last Taken 06/06/22] atorvastatin 40 mg tablet 40 mg PO DAILY #30 tabs 06/12/20 [Rx Last Taken 06/06/22] pantoprazole 40 mg tablet,delayed release 40 mg PO DAILY #30 tabs 06/12/20 [Rx Last Taken 06/05/22] albuterol sulfate 90 mcg/actuation aerosol inhaler (Ventolin HFA) 2 puff inhalation Q4H PRN PRN Wheezing ##1 03/25/21 [Rx Last Taken 2 Days Ago ~06/04/22] losartan 25 mg tablet 25 mg PO DAILY 03/25/21 [History Last Taken 06/06/22] metoprolol tartrate 25 mg tablet 75 mg PO DAILY 03/25/21 [History Last Taken 06/06/22] ondansetron HCl 4 mg tablet 4 mg PO Q6H PRN nausea and vomiting #20 tabs 01/31/22 [Rx Last Taken 06/05/22] diltiazem HCl 180 mg PO/SL QHS htn 06/06/22 [History Last Taken 06/05/22 22:00] hydrochlorothiazide 12.5 mg capsule 12.5 mg PO DAILY HTN 06/06/22 [History Last Taken 06/06/22] metformin 500 mg tablet,extended release 24 hr 500 mg PO BIDCM DM 06/06/22 [History Last Taken 06/06/22] buspirone 30 mg tablet 30 mg PO BID #30 tabs 10/06/22 [Rx Last Taken Unknown] clonazepam 0.5 mg tablet 0.5 mg PO BID 30 days #60 tabs 10/06/22 [Rx Last Taken Unknown] olanzapine 2.5 mg tablet 2.5 mg PO DAILY #30 tabs 10/06/22 [Rx Last Taken Unknown] sertraline 100 mg tablet 100 mg PO QHS 90 days #90 tabs 10/06/22 [Rx Last Taken Unknown] mirtazapine 30 mg tablet See Rx Instructions .Route .COMPLEX #90 tabs 06/12/23 [Rx Last Taken Unknown] Allergy/AdvReac Type Severity Reaction Status Date / Time Penicillins Allergy Mild Itching Verified 11/22/22 14:21 banana Allergy Food Verified 11/22/22 14:21 Allergy codeine Allergy Itching Verified 11/22/22 14:21 benzonatate AdvReac eye pain Verified 11/22/22 14:21 [From Trey Murillo] Surgical History History of bilateral breast reduction surgery History of History of hemorrhoidectomy History of hysterectomy Social History Smoking Status: Current every day smoker tobacco type: cigarettes alcohol intake: current substance use type: does not use ROS Constitutional Constitutional: Denies anorexia, change in weight, chills, fatigue, fever(s), malaise, night sweats or weakness Eyes Eyes: Denies blurry vision, change in vision, discharge from eye(s) or eye pain Cardiovascular Cardiovascular: Reports chest pain; Denies claudication, dyspnea on exertion, edema, lightheadedness or palpitations Respiratory/Chest Respiratory/Chest: Denies cough, dyspnea, excessive phlegm production, hemoptysis, productive cough, shortness of breath at rest or shortness of breath with exertion Gastrointestinal Gastrointestinal: Reports nausea; Denies abdominal pain, coffee ground emesis, constipation, diarrhea, dyspepsia, hematemesis, hematochezia, melena or vomiting Genitourinary Genitourinary: Denies dysuria, hematuria, urinary frequency, urinary hesitancy, urinary incontinence or urinary urgency Musculoskeletal Musculoskeletal: Denies back pain, joint pain, joint stiffness, joint swelling, myalgias or neck pain Neurologic Neurologic: Denies abnormal gait, abnormal speech, dizziness, focal weakness, headache(s), loss of vision, numbness, other visual disturbances, paresthesias, syncope or tingling Psychiatric Psychiatric: Denies anxiety, cognitive impairment, depression, irritability, mood swings or suicidal ideation Endocrine Endocrinology: Denies change in body appearance, cold intolerance, excessive sweating, heat intolerance, polydipsia or polyuria Hematologic/Lymphatic Hematologic/Lymphatic: Denies none, anemia, easy bleeding, easy bruising or lymphadenopathy Allergic/Immunologic Allergic/Immunologic: Denies rhinitis, urticaria, eczemia or asthma Vital Signs Vital Signs Vital Signs: 11/22/22 14:17 11/22/22 16:40 11/22/22 17:40 Temperature 98.5 F 98 F 97.7 F L Temperature Source Temporal Temporal Oral Pulse Rate 88 72 81 Respiratory Rate 16 18 18 Blood Pressure 147/82 H 144/71 H 145/66 H Blood Pressure Mean 103 95 92 Blood Pressure Source Monitor Blood Pressure Position Semi-Fowlers Blood Pressure Location Left Arm Pulse Ox 100 98 100 Oxygen Delivery Method Room Air Room Air Room Air Weight Weight: 60.5 kg Body Mass Index (BMI) 24.3 Physical Exam Const alert, oriented x3, no apparent distress and average body habitus General Appearance: cooperative, well kempt and well developed Orientation / Consciousness: awake, oriented to person, oriented to place and oriented to time HEENT normocephalic, head/scalp atraumatic, hearing grossly normal bilaterally and moist oral mucous membranes Eyes PERRL, EOMs intact bilaterally and conjunctivae normal Neck supple, no JVD, thyroid normal and no carotid bruits General: trachea midline Resp normal respiratory effort, no retractions, no use of accessory muscles and clear to auscultation bilaterally Auscultation: Negative for rales, rhonchi or wheezes Cardio regular rate, regular rhythm, S1 normal heart sound, S2 normal heart sound, no murmurs, no rub and no gallops GI normal to inspection, nondistended, normoactive bowel sounds, soft to palpation, non-tender and non-distended Extremity no clubbing, cyanosis or edema Skin no rashes or lesions noted General Skin Exam: no breakdown Neuro oriented x3, CN's II-XII intact bilaterally, moves all extremities, no focal motor deficits and no sensory deficits noted Sensorium / Orientation: awake, alert, oriented to person, oriented to place and oriented to time Speech: speech normal Psych affect normal Results Lab / Micro Data 11/22/22 15:25 11/22/22 15:25 Labs: Laboratory Results - last 24 hr 11/22/22 15:25: WBC 8.8, RBC 4.21, Hgb 11.9 L, Hct 35.4 L, MCV 84.1, MCH 28.3, MCHC 33.6, RDW Std Deviation 37.5, RDW Coeff of Ross 12.5, Plt Count 297, MPV 8.8, Immature Gran % (Auto) 0.200, Neut % (Auto) 59.8, Lymph % (Auto) 35.4, [place] % (Auto) 3.7, Eos % (Auto) 0.6, Baso % (Auto) 0.3, Absolute Neuts (auto) 5.3, Absolute Lymphs (auto) 3.13, Nucleated RBC % 0, Sodium 137, Potassium 3.0 L, Chloride 102, Carbon Dioxide 21.0, Anion Gap 14, BUN 30 H, Creatinine 1.70 H, Estim Creat Clear Calc 27.49, Est GFR (MDRD) Af Amer 39 L, Est GFR (MDRD) Non-Af 32 L, BUN/Creatinine Ratio 17.6, Glucose 93, Calcium 8.1 L, Total Bilirubin 0.40, AST 60 H, ALT 68 H, Alkaline Phosphatase 97, Troponin I High Sens 12, Total Protein 7.4, Albumin 3.6, Globulin 3.8, Albumin/Globulin Ratio 0.9, Urine Opiates Screen NEGATIVE, Urine Methadone Screen NEGATIVE, Ur Barbiturates Screen NEGATIVE, Ur Phencyclidine Scrn NEGATIVE, Ur Amphetamines Screen NEGATIVE, MDMA (Ecstasy) Screen NEGATIVE, U Benzodiazepines Scrn NEGATIVE, Urine Cocaine Screen NEGATIVE, U Cannabinoids Screen NEGATIVE, Ur Drug Screen Comment , Ethyl Alcohol 257.0 11/22/22 18:07: POC Glucose 107 H Radiology Impression Chest X-Ray 11/22/22 15:55 IMPRESSION: No radiographic evidence of acute cardiopulmonary disease. Electronically Signed: Jhonny Fong MD at 16:12 EDT , Assessment & Plan Assessment/Plan (1) Chronic alcoholism: PLAN: Plan 1. Incipient alcohol withdrawal-patient will be admitted to [facility] 3, orders were entered using the alcohol detox order set, she will be seen by addiction social welfare administrator. #2 bipolar 1 disorder-patient's medications will be continued as outpatient #3 hypokalemia-potassium replacement will be given to the patient, CMP will be obtained tomorrow #4 elevated bilirubin and liver enzymes-probably secondary to alcohol abuse, CMP will be repeated tomorrow #5 chronic anxiety-patient is on Klonopin as an outpatient, this will be continued #6 essential hypertension-patient will remain on the present medications #7 type 2 diabetes-patient's blood sugars will be monitored, sliding scale insulin will be used if appropriate #8 hyperlipidemia-patient is on Lipitor Total clinical time spent by myself addressing the patient's medical issues, reviewing all of her data, and collaborating with patient's care team: 55 minutes Charges/Coding Visit Charges Inpatient E&M: 87328 Init Hosp L2
[2022-11-22] MEDS: Ondansetron 8 MG Tablet PO (18:50)
[2022-11-22] MEDS: Phenobarbital 32.4 MG Tablet PO ×2 (18:51→21:19)
[2022-11-22] MEDS: Potassium Chloride 10mEq/100mL 10 MEQ/100 ML IV.SOLN. 100 MEQ IV BOLUS ×2 (19:38→20:56)
[2022-11-22] MEDS: 0.9% Saline Lock 10 ML Syringe IV (19:40)
[2022-11-22] MEDS: Loperamide 2 MG Capsule PO (19:45)
[2022-11-22] MEDS: Dicyclomine 10 MG Capsule 20 MG PO (19:45)
[2022-11-22 20:07] VITALS: BP 136/82; PULSE 82; RESP 16; TEMP 36.7; O2SAT 97
[2022-11-22] MEDS: Sertraline 100 MG Tablet PO (20:59)
[2022-11-22] MEDS: busPIRone 15 MG TABLET 30 MG PO (20:59)
[2022-11-22] MEDS: Atorvastatin Calcium 40 MG Tablet PO (20:59)
[2022-11-22] MEDS: Mirtazapine 30 MG Tablet PO (21:00)
[2022-11-22] MEDS: OLANZapine 2.5 MG Tablet PO (21:11)
[2022-11-22] MEDS: clonazePAM 0.5 MG Tablet PO (21:19)
[2022-11-22] MEDS: Acetaminophen 500 MG Tablet PO (21:59)
[2022-11-22 22:24] LABS: Bedside Glucose 156 mg/dL (74-106)
[2022-11-23] MEDS: Dicyclomine 10 MG Capsule 20 MG PO (02:13)
[2022-11-23] MEDS: Phenobarbital 32.4 MG Tablet PO ×6 (02:13→22:51)
[2022-11-23 02:16] VITALS: BP 155/89; PULSE 88; RESP 16; TEMP 36.4; O2SAT 98
[2022-11-23 05:43] LABS: AST(SGOT) 184 U/L (15-37); Alanine Aminotransfer ALT/SGPT 104 U/L (13-56); Albumin, Serum 3.1 g/dL (3.2-5.0); Alkaline Phosphatase 103 U/L (45-117); Anion Gap 6 (5-15); BUN 22 mg/dL (7-18); BUN/Creat Ratio 15.8 RATIO (10-20); Chloride 110 mmol/L (98-107); Creatinine, Serum 1.39 mg/dL (0.55-1.02); EST Glomerular Filtration Rate 41 mL/min (>60); Est Glom Filt Rate - Afr Amer 49 mL/min (>60); Estimated Creatinine Clearance 33.62 ml/min; Glucose 85 mg/dL (74-106); Potassium 3.3 mmol/L (3.5-5.1); Protein, Total 6.1 g/dL (6.4-8.2); Sodium Level 142 mmol/L (136-145)
[2022-11-23 06:50] LABS: Bedside Glucose 99 mg/dL (74-106)
--- NOTE | 2022-11-23 08:35 | PCM.PN.HOSP ---
Reason for Visit Reason for Visit: Diagnoses Alcohol dependence, uncomplicated (11/22/22) Subjective Subjective Patient was seen and examined today, potassium was slightly low today, creatinine has improved to 1.39. Blood sugars appear to be under control. Objective Data Objective Data Vital Signs: Vital Signs Temp Pulse Resp BP Pulse Ox O2 Del Method 97.6 F L 88 16 155/89 H 98 Room Air 11/23/22 02:16 11/23/22 02:16 11/23/22 02:16 11/23/22 02:16 11/23/22 02:16 11/23/22 02:16 Oxygen Delivery Method Room Air Weight: 60.5 kg Body Mass Index (BMI) 24.3 Intake & Output: Intake and Output for Last 24 Hours 11/21/22 11/22/22 11/23/22 23:59 23:59 23:59 Intake Total 1320 / 1320 Balance 1320 / 1320 Lab / Micro Data 11/22/22 15:25 11/23/22 04:42 Labs: Laboratory Results - last 24 hr 11/22/22 15:25: WBC 8.8, RBC 4.21, Hgb 11.9 L, Hct 35.4 L, MCV 84.1, MCH 28.3, MCHC 33.6, RDW Std Deviation 37.5, RDW Coeff of Ross 12.5, Plt Count 297, MPV 8.8, Immature Gran % (Auto) 0.200, Neut % (Auto) 59.8, Lymph % (Auto) 35.4, [place] % (Auto) 3.7, Eos % (Auto) 0.6, Baso % (Auto) 0.3, Absolute Neuts (auto) 5.3, Absolute Lymphs (auto) 3.13, Nucleated RBC % 0, Sodium 137, Potassium 3.0 L, Chloride 102, Carbon Dioxide 21.0, Anion Gap 14, BUN 30 H, Creatinine 1.70 H, Estim Creat Clear Calc 27.49, Est GFR (MDRD) Af Amer 39 L, Est GFR (MDRD) Non-Af 32 L, BUN/Creatinine Ratio 17.6, Glucose 93, Calcium 8.1 L, Total Bilirubin 0.40, AST 60 H, ALT 68 H, Alkaline Phosphatase 97, Troponin I High Sens 12, Total Protein 7.4, Albumin 3.6, Globulin 3.8, Albumin/Globulin Ratio 0.9, Urine Opiates Screen NEGATIVE, Urine Methadone Screen NEGATIVE, Ur Barbiturates Screen NEGATIVE, Ur Phencyclidine Scrn NEGATIVE, Ur Amphetamines Screen NEGATIVE, MDMA (Ecstasy) Screen NEGATIVE, U Benzodiazepines Scrn NEGATIVE, Urine Cocaine Screen NEGATIVE, U Cannabinoids Screen NEGATIVE, Ur Drug Screen Comment , Ethyl Alcohol 257.0 11/22/22 18:07: POC Glucose 107 H 11/22/22 21:05: POC Glucose 156 H 11/23/22 04:42: Sodium 142, Potassium 3.3 L, Chloride 110 H, Carbon Dioxide 26.0, Anion Gap 6, BUN 22 H, Creatinine 1.39 H, Estim Creat Clear Calc 33.62, Est GFR (MDRD) Af Amer 49 L, Est GFR (MDRD) Non-Af 41 L, BUN/Creatinine Ratio 15.8, Glucose 85, Calcium 8.0 L, Total Bilirubin 0.40, AST 184 H, ALT 104 H, Alkaline Phosphatase 103, Total Protein 6.1 L, Albumin 3.1 L, Globulin 3.0, Albumin/Globulin Ratio 1.0 11/23/22 06:31: POC Glucose 99 Radiography Diagnostic Testing: Radiology Impression Chest X-Ray 11/22/22 15:55 IMPRESSION: No radiographic evidence of acute cardiopulmonary disease. Electronically Signed: Jhonny Fong MD at 16:12 EDT , Physical Exam Narrative alert, oriented x3, no apparent distress and average body habitus General Appearance: cooperative, well kempt and well developed Orientation / Consciousness: awake, oriented to person, oriented to place and oriented to time HEENT normocephalic, head/scalp atraumatic, hearing grossly normal bilaterally and moist oral mucous membranes Eyes PERRL, EOMs intact bilaterally and conjunctivae normal Neck supple, no JVD, thyroid normal and no carotid bruits General: trachea midline Resp normal respiratory effort, no retractions, no use of accessory muscles and clear to auscultation bilaterally Auscultation: Negative for rales, rhonchi or wheezes Cardio regular rate, regular rhythm, S1 normal heart sound, S2 normal heart sound, no murmurs, no rub and no gallops GI normal to inspection, nondistended, normoactive bowel sounds, soft to palpation, non-tender and non-distended Extremity no clubbing, cyanosis or edema Skin no rashes or lesions noted General Skin Exam: no breakdown Neuro oriented x3, CN's II-XII intact bilaterally, moves all extremities, no focal motor deficits and no sensory deficits noted Sensorium / Orientation: awake, alert, oriented to person, oriented to place and oriented to time Speech: speech normal Psych affect normal Assessment & Plan Assessment/Plan (1) Chronic alcoholism: PLAN: Plan 1. Alcohol withdrawal-patient is to remain on present medications, she does not appear nervous or anxious today. #2 bipolar 1 disorder-patient's medications will be continued as outpatient #3 hypokalemia-potassium replacement will be given to the patient, potassium today is slightly low, CMP will be repeated tomorrow #4 elevated liver enzymes secondary to alcohol abuse, repeat CMP will be obtained tomorrow #5 chronic anxiety-patient is on Klonopin as an outpatient, this will be continued #6 essential hypertension-patient will remain on the present medications #7 type 2 diabetes-patient's blood sugars will be monitored, sliding scale insulin will be used if appropriate #8 hyperlipidemia-patient is on Lipitor #9 elevated creatinine-CMP will be repeated tomorrow Total clinical time spent by myself addressing the patient's medical issues, reviewing all of her data, and collaborating with patient's care team: 35 minutes Charges/Coding Visit Charges Inpatient E&M: 89668 Subs Hosp L2
[2022-11-23] MEDS: Aspirin 81 MG TAB.CHEW PO (08:57)
[2022-11-23] MEDS: Thiamine Hydrochloride 100 MG Tablet PO (08:58)
[2022-11-23] MEDS: Folic Acid 1 MG Tablet PO (08:58)
[2022-11-23] MEDS: hydrOXYzine PAM 25 MG Capsule 50 MG PO (09:03)
[2022-11-23] MEDS: Gabapentin 300 MG Capsule PO (09:03)
[2022-11-23 09:15] LABS: Phosphorus 2.8 mg/dL (2.5-4.9)
[2022-11-23 10:00] VITALS: BP 149/83; PULSE 95; PULSE 98; RESP 18; TEMP 36.8; O2SAT 98
[2022-11-23] MEDS: Potassium Chloride Oral Tablet 20 MEQ 40 MEQ PO (10:08)
[2022-11-23] MEDS: clonazePAM 0.5 MG Tablet PO (10:08)
[2022-11-23 10:09] VITALS: PULSE 98
[2022-11-23] MEDS: Metoprolol Tartrate 25 MG Tablet 75 MG PO (10:09)
[2022-11-23] MEDS: Pantoprazole Sodium 40 MG Tablet PO (10:09)
[2022-11-23] MEDS: hydroCHLOROthiazide 12.5mg 12.5 MG PO (10:09)
[2022-11-23] MEDS: busPIRone 15 MG TABLET 30 MG PO ×2 (10:12→22:52)
[2022-11-23] MEDS: Losartan Potassium 25 MG Tablet PO (10:12)
[2022-11-23] MEDS: Estradiol 1 MG Tablet 2 MG PO (10:12)
[2022-11-23 11:49] LABS: Bedside Glucose 119 mg/dL (74-106)
[2022-11-23 14:00] VITALS: BP 159/88; PULSE 97; RESP 18; TEMP 37.1; O2SAT 98
[2022-11-23] MEDS: LORazepam 1 MG Tablet 2 MG PO (14:19)
[2022-11-23 16:43] LABS: Bedside Glucose 92 mg/dL (74-106)
[2022-11-23 16:51] VITALS: BP 181/94; PULSE 88; RESP 18; TEMP 36.7; O2SAT 98
[2022-11-23] MEDS: Losartan Potassium 100 MG Tablet PO (17:55)
[2022-11-23 22:47] VITALS: BP 138/66; PULSE 86; RESP 16; TEMP 37; O2SAT 97
[2022-11-23] MEDS: OLANZapine 2.5 MG Tablet PO (22:51)
[2022-11-23] MEDS: Sertraline 100 MG Tablet PO (22:51)
[2022-11-23] MEDS: Atorvastatin Calcium 40 MG Tablet PO (22:51)
[2022-11-23] MEDS: Mirtazapine 30 MG Tablet PO (22:52)
[2022-11-23 23:13] LABS: Bedside Glucose 142 mg/dL (74-106)
[2022-11-24] MEDS: clonazePAM 0.5 MG Tablet PO ×3 (00:15→21:22)
[2022-11-24] MEDS: Phenobarbital 32.4 MG Tablet PO ×6 (02:32→21:24)
[2022-11-24 02:37] VITALS: BP 139/76; PULSE 88; RESP 16; TEMP 36.4; O2SAT 100
--- NOTE | 2022-11-24 06:41 | PCM.PN.HOSP ---
Reason for Visit Reason for Visit: Diagnoses Alcohol dependence, uncomplicated (11/22/22) Subjective Subjective Patient overnight with no marked withdrawal symptoms however she does report vivid dreams and following lengthy discussion she does report previously when using trazodone did also have very vivid dreams. At this point she woke up with nightmares through the evening but she does not want to completely discontinue this and is willing to continue trying to see if it improves. Patient denies fevers, chills, nausea, emesis, abdominal pain, chest pain or dyspnea. Objective Data Objective Data Vital Signs: Vital Signs Temp Pulse Resp BP Pulse Ox O2 Del Method 97.5 F L 88 16 139/76 H 100 Room Air 11/24/22 02:37 11/24/22 02:37 11/24/22 02:37 11/24/22 02:37 11/24/22 02:37 11/24/22 02:37 Oxygen Delivery Method Room Air Weight: 133 lb 6.075 oz Body Mass Index (BMI) 24.3 Intake & Output: Intake and Output for Last 24 Hours 11/22/22 11/23/22 11/24/22 23:59 23:59 23:59 Intake Total 1320 / 1320 1500 / 1500 Balance 1320 / 1320 1500 / 1500 Lab / Micro Data 11/22/22 15:25 11/24/22 06:01 Labs: Laboratory Results - last 24 hr 11/23/22 04:42: Phosphorus 2.8 11/23/22 06:31: POC Glucose 99 11/23/22 11:30: POC Glucose 119 H 11/23/22 16:24: POC Glucose 92 11/23/22 22:49: POC Glucose 142 H Physical Exam Narrative Physical Examination: General: Awake, alert, oriented x 3 and cooperative, laying in the medical surgical bed, fatigued, reports vivid bad dreams through the night. Skin: Normal color, normal turgor, no icterus, no cyanosis. HEENT: AT/NC, EOMI, PERRLA, mildly dry MM. Lungs: CTA bilaterally, moderate effort, mild decrease BL bases, no rales, ronchi or wheezing. Heart: Currently regular rate and rhythm; no gallop, rub audible. Abdomen: Soft, NTTP, ND, mildly hyperactive BS. Extremities: No cyanosis, clubbing, or edema. Neurological: Patient awake, alert, oriented as noted, cognitive function intact; pupils equally reactive to light and accommodation, cranial nerves II-XII grossly normal, moving all 4 extremities, no focal deficits, strength preserved, no evidence of any specific tremors or complaints of tactile disturbances. Psychiatric: Affect appears fatigued, tearful with discussion of vivid nightmares, underlying history of anxiety and depression. Assessment & Plan Assessment/Plan (1) Alcohol withdrawal: PLAN: Plan The patient is a 61 y/o F w/ PMHx: Diabetes mellitus type II, Anxiety and Depression/Bipolar disorder/PTSD, GERD, HTN, HLD, Tobacco use, Chronic back pain, EtOH abuse (whiskey/wine coolers daily) who presents to the [facility] ED on 11/22/22 with Acute EtOH withdrawal onset. #1. Acute EtOH Withdrawal with chronic alcoholic hepatitis: Admitted to medical surgical floor, initiated and continued on protocol with taper course of Phenobarbital, as needed gabapentin, Catapres, Bentyl, Vistaril, IV fluids, IV antiemetics, Tylenol as needed for pain. Will consult Case management for assistance for transition to next level of rehabilitation care. Mag, phos assessed with 11/04/2022 magnesium 1.4 with IV supplementation administered and planned repeat level in a.m. to assure improved. Maintain on CIWA protocol concurrently. 11/24/2022 hepatic profile with T. bili 0.40, AST/ALT 169/120, alk phos 125. #2. Acute kidney injury: Secondary to dehydration likely with acute alcohol withdrawal acute presentation as noted. Admission BUN/Cr 30/1.70, prior baseline creatinine noted to be primarily 0.9 however has vacillated especially with her acute presentations. Judiciously hydrated, repeat 11/24/2022 BUN/creatinine 11/1.05. #3. Hypokalemia: Admission K+ 3.3, magnesium level 11/24/2022 1.4 with IV supplementation ordered and plan repeat 11/25/2022 magnesium to assure resolved. Potassium supplementation given upon presentation when hypokalemic, repeat level in AM. #4. Hypertension, uncontrolled: Continue home regimen including metoprolol, resumed hydrochlorothiazide with renal function improved, losartan 100 mg daily added per prior hospitalist given uncontrolled hypertension, BP improved, continue to monitor. #5. Hyperlipidemia: We will continue patient on statin therapy. #6. Anxiety depression/bipolar disorder/PTSD: We will continue patient home Zyprexa, mirtazapine, Klonopin, BuSpar with recommended close continued early outpatient follow-up with psychiatry/psychology. #7. Diabetes mellitus type II: Noted 06/12/2020 hemoglobin A1c 6.8% with improvement 06/08/2019 3 to 5.8% prediabetic level, holding oral metformin, ADA diet, accu checks w/ ISS. #8. GERD: We will continue patient on PPI. #9. DVT prophylaxis: Low risk. Charges/Coding Visit Charges Inpatient E&M: 74394 Subs Hosp L2
[2022-11-24 06:48] LABS: ALB/GLOB Ratio 0.8 RATIO (0.9-2.4); AST(SGOT) 169 U/L (15-37); Alanine Aminotransfer ALT/SGPT 120 U/L (13-56); Albumin, Serum 2.7 g/dL (3.2-5.0); Alkaline Phosphatase 125 U/L (45-117); Anion Gap 4 (5-15); BUN 11 mg/dL (7-18); BUN/Creat Ratio 10.5 RATIO (10-20); Calcium,Total 7.9 mg/dL (8.5-10.1); Chloride 108 mmol/L (98-107); Creatinine, Serum 1.05 mg/dL (0.55-1.02); EST Glomerular Filtration Rate 56 mL/min (>60); Est Glom Filt Rate - Afr Amer 68 mL/min (>60); Globulin 3.2 g/dL (2.2-4.2); Glucose 114 mg/dL (74-106); Potassium 3.5 mmol/L (3.5-5.1); Protein, Total 5.9 g/dL (6.4-8.2); Sodium Level 140 mmol/L (136-145)
[2022-11-24 07:02] LABS: Bedside Glucose 112 mg/dL (74-106)
[2022-11-24 07:28] LABS: Magnesium 1.4 mg/dL (1.6-2.6)
[2022-11-24 08:40] VITALS: BP 140/71; PULSE 81; RESP 16; TEMP 37.2; O2SAT 100
[2022-11-24 09:35] VITALS: BP 140/71; PULSE 81
[2022-11-24] MEDS: hydroCHLOROthiazide 12.5mg 12.5 MG PO (09:35)
[2022-11-24] MEDS: Estradiol 1 MG Tablet 2 MG PO (09:35)
[2022-11-24] MEDS: busPIRone 15 MG TABLET 30 MG PO ×2 (09:35→21:23)
[2022-11-24] MEDS: Pantoprazole Sodium 40 MG Tablet PO (09:35)
[2022-11-24] MEDS: Metoprolol Tartrate 25 MG Tablet 75 MG PO (09:35)
[2022-11-24] MEDS: Folic Acid 1 MG Tablet PO (09:35)
[2022-11-24] MEDS: Losartan Potassium 100 MG Tablet PO (09:35)
[2022-11-24] MEDS: Thiamine Hydrochloride 100 MG Tablet PO (09:35)
[2022-11-24] MEDS: Aspirin 81 MG TAB.CHEW PO (09:35)
--- NOTE | 2022-11-24 10:42 | ADDICTION ---
This abstract writer met with PT to conduct ASAM, MSE, AUDIT, DUDIT assessments and to plan for d/c. PT A+Ox4 and participated actively. All assessments completed and placed in PT's chart. PT plans to f/u with [facility] for outpatient treatment services. PT did not indicate a need for transportation post d/c from [facility].
[2022-11-24 12:16] LABS: Bedside Glucose 123 mg/dL (74-106)
[2022-11-24] MEDS: Ondansetron 8 MG Tablet PO (13:18)
--- NOTE | 2022-11-24 14:23 | CASEMGMT ---
Social Work SW performed chart review, LW and HCPOA documents are on file as of 2004. HCPOA identifies daughter, Joe Shay. Audra Fitzpatrick FIELD MARKETER, HEAD OF STOCK
[2022-11-24 15:21] VITALS: BP 130/86; PULSE 76; RESP 18; TEMP 36.8; O2SAT 100
[2022-11-24] MEDS: Gabapentin 300 MG Capsule PO (15:30)
[2022-11-24] MEDS: hydrOXYzine PAM 25 MG Capsule 50 MG PO (15:30)
[2022-11-24] MEDS: Insulin Lispro 100 UNIT/ML INSULN.PEN SC (17:01)
[2022-11-24 17:07] LABS: Bedside Glucose 203 mg/dL (74-106)
[2022-11-24] MEDS: LORazepam 1 MG Tablet 2 MG PO (19:16)
[2022-11-24 20:20] VITALS: BP 159/82; PULSE 81; RESP 16; TEMP 36.9; O2SAT 100
[2022-11-24] MEDS: OLANZapine 2.5 MG Tablet PO (21:22)
[2022-11-24] MEDS: Atorvastatin Calcium 40 MG Tablet PO (21:22)
[2022-11-24] MEDS: Mirtazapine 30 MG Tablet PO (21:23)
[2022-11-24] MEDS: 0.9% Saline Lock 10 ML Syringe IV (21:24)
[2022-11-24] MEDS: Sertraline 100 MG Tablet PO (21:24)
[2022-11-24 21:46] LABS: Bedside Glucose 137 mg/dL (74-106)
[2022-11-25 02:05] VITALS: BP 141/77; PULSE 79; RESP 16; TEMP 36.6; O2SAT 100
[2022-11-25 06:20] LABS: Bedside Glucose 114 mg/dL (74-106)
[2022-11-25 06:33] LABS: Magnesium 1.7 mg/dL (1.6-2.6)
[2022-11-25 08:00] VITALS: BP 153/87; PULSE 78; RESP 18; TEMP 36.3; O2SAT 99
[2022-11-25] MEDS: busPIRone 15 MG TABLET 30 MG PO ×2 (09:25→21:37)
[2022-11-25] MEDS: Aspirin 81 MG TAB.CHEW PO (09:25)
[2022-11-25] MEDS: Phenobarbital 32.4 MG Tablet PO ×3 (09:25→20:07)
[2022-11-25] MEDS: Folic Acid 1 MG Tablet PO (09:25)
[2022-11-25] MEDS: Losartan Potassium 100 MG Tablet PO (09:25)
[2022-11-25 09:26] VITALS: PULSE 78
[2022-11-25] MEDS: Pantoprazole Sodium 40 MG Tablet PO (09:26)
[2022-11-25] MEDS: Estradiol 1 MG Tablet 2 MG PO (09:26)
[2022-11-25] MEDS: hydroCHLOROthiazide 12.5mg 12.5 MG PO (09:26)
[2022-11-25] MEDS: Thiamine Hydrochloride 100 MG Tablet PO (09:26)
[2022-11-25] MEDS: Metoprolol Tartrate 25 MG Tablet 75 MG PO (09:26)
[2022-11-25] MEDS: clonazePAM 0.5 MG Tablet PO ×2 (09:31→21:37)
[2022-11-25 11:32] LABS: Bedside Glucose 130 mg/dL (74-106)
--- NOTE | 2022-11-25 13:09 | PN_ITS ---
Subjective Subjective Patient seen and examined. She says she felt weak and nearly fell down this morning. She has had frequent falls at home. She denies any tremors or symptoms of withdrawal today. Review of systems is otherwise negative. She denies any withdrawal symptoms. Review of systems is otherwise negative. Objective Data Objective Data Vital Signs: Vital Signs Temp Pulse Resp BP Pulse Ox O2 Del Method 97.4 F L 78 18 153/87 H 99 Room Air 11/25/22 08:00 11/25/22 09:26 11/25/22 08:00 11/25/22 08:00 11/25/22 08:00 11/25/22 08:06 Oxygen Delivery Method Room Air Weight: 133 lb 6.075 oz Body Mass Index (BMI) 24.3 Intake & Output: Intake and Output for Last 24 Hours 11/23/22 11/24/22 11/25/22 23:59 23:59 23:59 Intake Total 1500 / 1500 104 / 104 Balance 1500 / 1500 104 / 104 Lab / Micro Data 11/22/22 15:25 11/24/22 06:01 Labs: Laboratory Results - last 24 hr 11/24/22 16:49: POC Glucose 203 H 11/24/22 21:20: POC Glucose 137 H 11/25/22 05:55: Magnesium 1.7 11/25/22 06:01: POC Glucose 114 H 11/25/22 11:14: POC Glucose 130 H Physical Exam Const alert, oriented x3 and no apparent distress General Appearance: cooperative HEENT normocephalic, head/scalp atraumatic and moist oral mucous membranes Eyes PERRL and EOMs intact bilaterally Neck supple and no JVD Lymph Lymphatic: no lymphadenopathy noted and no lymphedema noted Resp normal respiratory effort, normal air movement and clear to auscultation bilaterally Cardio regular rate, regular rhythm, S1 normal heart sound, S2 normal heart sound and no murmurs GI normal to inspection, nondistended, normoactive bowel sounds, soft to palpation, non-tender and non-distended Extremity normal capillary refill and no clubbing, cyanosis or edema Skin General Skin Exam: no breakdown Neuro CN's II-XII intact bilaterally, no focal motor deficits, no sensory deficits noted and deep tendon reflexes 2+ bilaterally Motor Exam: strength 5/5 throughout Psych thought process normal and cooperative Appearance: appropriate Assessment & Plan Assessment/Plan (1) Alcohol withdrawal: (2) Debility: PLAN: Plan #Acute alcohol withdrawal * on alcohol withdrawal protocol with phenobarbital * thiamine, folic acid and multivite * * #HOWARD: resolved #Hypertension: on metoprolol, HCTZ and losartan. IV hydralazine #Hyperlipidemia: on statin #Debillty due to mechanical falls * says she has been falling at home. Has also felt quite weak here and nearly fell today * will consult PT/OT.: PT/OT evaluated him and thought she could return home safely * fall precautions * #Anxiety and depression and bipolar disorder * on zyprexa, mirtazapine, klonopin and buspar. * follow up with psychiatry on outpatient basis * #Type 2 diabetes mellitus * oral metformin held. * ISS. Accuchecks ACHS * #GERD: on PPI DVT Prophylaxis: low risk, encourage ambulation Disposition: For likely DC tomorrow. I would want to watch her overnight since she was unsteady and nearly fell today. # Charges/Coding Visit Charges Inpatient E&M: 28119 Subs Hosp L2
[2022-11-25 14:51] VITALS: BP 146/83; PULSE 78; RESP 18; TEMP 36.9; O2SAT 100
[2022-11-25 16:33] LABS: Bedside Glucose 137 mg/dL (74-106)
[2022-11-25] MEDS: Acetaminophen 500 MG Tablet PO (18:15)
[2022-11-25 20:21] VITALS: BP 142/94; PULSE 78; RESP 16; TEMP 36.7; O2SAT 100
[2022-11-25] MEDS: Mirtazapine 30 MG Tablet PO (21:37)
[2022-11-25] MEDS: Atorvastatin Calcium 40 MG Tablet PO (21:37)
[2022-11-25] MEDS: Sertraline 100 MG Tablet PO (21:37)
[2022-11-25] MEDS: OLANZapine 2.5 MG Tablet PO (21:37)
[2022-11-25 21:58] LABS: Bedside Glucose 118 mg/dL (74-106)
[2022-11-26 01:40] VITALS: BP 161/71; PULSE 78; RESP 12; TEMP 36.9; O2SAT 99
[2022-11-26 06:29] LABS: Bedside Glucose 114 mg/dL (74-106)
[2022-11-26 08:46] VITALS: BP 160/94; PULSE 75; RESP 16; TEMP 36.8; O2SAT 99
[2022-11-26] MEDS: Losartan Potassium 100 MG Tablet PO (08:52)
[2022-11-26] MEDS: Thiamine Hydrochloride 100 MG Tablet PO (08:53)
[2022-11-26] MEDS: busPIRone 15 MG TABLET 30 MG PO (08:53)
[2022-11-26] MEDS: Aspirin 81 MG TAB.CHEW PO (08:53)
[2022-11-26] MEDS: hydroCHLOROthiazide 12.5mg 12.5 MG PO (08:53)
[2022-11-26] MEDS: Pantoprazole Sodium 40 MG Tablet PO (08:53)
[2022-11-26] MEDS: Folic Acid 1 MG Tablet PO (08:53)
[2022-11-26] MEDS: Phenobarbital 32.4 MG Tablet PO (08:57)
[2022-11-26] MEDS: Estradiol 1 MG Tablet 2 MG PO (08:59)
[2022-11-26 09:00] VITALS: PULSE 75
[2022-11-26] MEDS: Metoprolol Tartrate 25 MG Tablet 75 MG PO (09:00)
[2022-11-26] MEDS: clonazePAM 0.5 MG Tablet PO (09:03)
--- NOTE | 2022-11-26 09:29 | PCM.DC.SUM ---
Providers Date of Admission: 11/22/22 Date of Discharge: 11/26/22 Primary Care Physician: Dr. Rach Gaona MD Reason For Visit: ALCOHOL DETOX Diagnosis Discharge Diagnosis (1) Alcohol withdrawal: Status: Acute Code(s): F10.939 - Alcohol use, unspecified with withdrawal, unspecified (2) Debility: Status: Acute Code(s): R53.81 - Other malaise Plan #Acute alcohol withdrawal on alcohol withdrawal protocol with phenobarbital thiamine, folic acid and multivite #HOWARD: resolved #Hypertension: on metoprolol, HCTZ and losartan. IV hydralazine #Hyperlipidemia: on statin #Debillty due to mechanical falls says she has been falling at home. Has also felt quite weak here and nearly fell today will consult PT/OT.: PT/OT evaluated him and thought she could return home safely fall precautions #Anxiety and depression and bipolar disorder on zyprexa, mirtazapine, klonopin and buspar. follow up with psychiatry on outpatient basis #Type 2 diabetes mellitus oral metformin held. ISS. [place] ACHS #GERD: on PPI DVT Prophylaxis: low risk, encourage ambulation Disposition: For likely DC tomorrow. I would want to watch her overnight since she was unsteady and nearly fell today. # Medications at Discharge Home Medications aspirin 81 mg chewable tablet 81 mg PO DAILY HEART 08/15/13 estradiol 2 mg tablet (Estrace) 2 mg PO DAILY 08/15/13 montelukast 10 mg tablet 10 mg PO DAILY 08/15/13 tizanidine 4 mg tablet (Zanaflex) 6 mg PO QHS 08/15/13 diclofenac sodium 3 % topical gel 1 applicatio TP DAILY PRN PRN arthritis 06/11/20 diphenhydramine HCl 25 mg capsule 25 mg PO TID PRN PRN Itching 06/11/20 hydroxyzine HCl 25 mg tablet 25 - 50 mg PO Q6H PRN anxiety/itching 06/11/20 atorvastatin 40 mg tablet 40 mg PO DAILY #30 tabs 06/12/20 pantoprazole 40 mg tablet,delayed release 40 mg PO DAILY #30 tabs 06/12/20 albuterol sulfate 90 mcg/actuation aerosol inhaler (Ventolin HFA) 2 puff inhalation Q4H PRN PRN Wheezing ##1 03/25/21 losartan 25 mg tablet 25 mg PO DAILY 03/25/21 metoprolol tartrate 25 mg tablet 75 mg PO DAILY 03/25/21 ondansetron HCl 4 mg tablet 4 mg PO Q6H PRN nausea and vomiting #20 tabs 01/31/22 diltiazem HCl 180 mg PO/SL QHS htn 06/06/22 hydrochlorothiazide 12.5 mg capsule 12.5 mg PO DAILY HTN 06/06/22 metformin 500 mg tablet,extended release 24 hr 500 mg PO BIDCM DM 06/06/22 buspirone 30 mg tablet 30 mg PO BID #30 tabs 10/06/22 clonazepam 0.5 mg tablet 0.5 mg PO BID 30 days #60 tabs 10/06/22 sertraline 100 mg tablet 100 mg PO QHS 90 days #90 tabs 10/06/22 mirtazapine 30 mg tablet See Rx Instructions .Route .COMPLEX #90 tabs 10/13/22 olanzapine 2.5 mg tablet 2.5 mg PO QHS MOOD 11/22/22 Hospital Course Operations None Summary of Care Provided Minutes Spent on Discharge: 45 Hospital Course: Patient is a 61 y/o female with a PMH as outlined including bipolar disorder, diabetes, hypertension, hypertension and PTSD and anxiety as well as depression. She was admitted via the ED on 11/26/2022 for alcohol detox. Her last drink was the morning of admission. She said she drank whiskey and wine coolers on a daily basis. She was admitted and managed for acute alcohol withdrawal. She was started on alcohol withdrawal protocol with phenobarbital. She tolerated the 3 day detox process. She complained of weakness and history of falls at home. PT/OT evaluated her and thought she was stable to go home. She was discharged home on 11/26/2022. SHe is to follow up with her PCP and to follow up with [facility] on outpatient basis. Patien seen and examined prior to discharge. She had no complaints and had an uneventful night. Review of systems is otherwise negative. Home meds reviewed and reconciled. Physical Exam Const alert, oriented x3, no apparent distress and average body habitus General Appearance: cooperative, comfortable, well kempt and well developed Orientation / Consciousness: awake, oriented to person, oriented to place and oriented to time HEENT normocephalic, head/scalp atraumatic, hearing grossly normal bilaterally and moist oral mucous membranes Eyes PERRL, EOMs intact bilaterally and conjunctivae normal Neck supple, no JVD, thyroid normal and no carotid bruits General: trachea midline Lymph Lymphatic: no lymphadenopathy noted and no lymphedema noted Resp normal respiratory effort, normal air movement, no retractions, no use of accessory muscles and clear to auscultation bilaterally Auscultation: Negative for rales, rhonchi or wheezes Cardio regular rate, regular rhythm, S1 normal heart sound, S2 normal heart sound, no murmurs, no rub and no gallops GI normal to inspection, nondistended, normoactive bowel sounds, soft to palpation, non-tender and non-distended Extremity normal to inspection, full ROM, normal capillary refill and no clubbing, cyanosis or edema Skin no rashes or lesions noted and no wounds General Skin Exam: no breakdown Neuro oriented x3, CN's II-XII intact bilaterally, moves all extremities, no focal motor deficits, no sensory deficits noted and deep tendon reflexes 2+ bilaterally Sensorium / Orientation: awake, alert, oriented to person, oriented to place and oriented to time Speech: speech normal Motor Exam: strength 5/5 throughout Psych thought process normal, cooperative and affect normal Appearance: appropriate Weight / BMI Weight Weight: 133 lb 6.075 oz Body Mass Index (BMI) 24.3 ABG / Lab / Microbiology Data 11/22/22 15:25 11/24/22 06:01 Laboratory: Laboratory Results - last 24 hr 11/25/22 11:14: POC Glucose 130 H 11/25/22 16:12: POC Glucose 137 H 11/25/22 21:34: POC Glucose 118 H 11/26/22 06:12: POC Glucose 114 H D/C Instructions Discharge Diet: Low fat / Low cholesterol Discharge Activity: Return to Normal Activity Weight Bearing Status: Weight bearing as tolerated Call your doctor if you observe: Fever of 101 or Higher, Shortness of breath, Dizziness and Swelling in the ankles Meaningful Use Info Meaningful Use Diagnoses (Choose all that apply): None applicable Discharge Plan Admission Admit Date/Time: 11/22/22 16:24 Primary Reason for Your Visit: acute alcohol withdrawal Attending Provider: Brielle Tinoco Primary Care Provider: Rach Gaona Consulting Providers: Gabe Hancock; Francesca Naidu Instructions Patient Instructions: Alcohol Addiction Discharge Orders/Prescriptions Prescriptions: Continued buspirone 30 mg tablet 30 mg PO BID Qty: 30 2RF clonazepam 0.5 mg tablet 0.5 mg PO BID 30 Days Qty: 60 1RF sertraline 100 mg tablet 100 mg PO QHS 90 Days Qty: 90 2RF tizanidine [Zanaflex] 4 MG tablet 6 mg PO QHS aspirin 81 MG tablet,chewable 81 mg PO DAILY estradiol [Estrace] 2 MG tablet 2 mg PO DAILY montelukast 10 MG tablet 10 mg PO DAILY diclofenac sodium 100 GM gel 1 applicatio TP DAILY PRN PRN (Reason: arthritis) diphenhydramine HCl 25 MG capsule 25 mg PO TID PRN PRN (Reason: Itching) hydroxyzine HCl 25 MG tablet 25 - 50 mg PO Q6H PRN (Reason: anxiety/itching) pantoprazole 40 MG tablet 40 mg PO DAILY Qty: 30 0RF atorvastatin 40 MG tablet 40 mg PO DAILY Qty: 30 0RF losartan 25 mg tablet 25 mg PO DAILY metoprolol tartrate 25 MG tablet 75 mg PO DAILY albuterol sulfate [Ventolin HFA] 1 INHALER inhaler 2 puff inhalation Q4H PRN PRN (Reason: Wheezing) Qty: 1 0RF ondansetron HCl 4 mg tablet 4 mg PO Q6H PRN (Reason: nausea and vomiting) Qty: 20 0RF hydrochlorothiazide 12.5 mg capsule 12.5 mg PO DAILY Patient Comments: TAKE 1 CAPSULE BY MOUTH ONCE DAILY metformin 500 mg tablet extended release 24 hr 500 mg PO BIDCM Patient Comments: TAKE 1 TABLET BY MOUTH TWICE A DAY WITH MEALS diltiazem HCl 180 mg PO/SL QHS olanzapine 2.5 mg tablet 2.5 mg PO QHS mirtazapine 30 mg tablet See Rx Instructions .ROUTE .COMPLEX Qty: 90 1RF Dose Instruction: TAKE 1 TABLET BY MOUTH EVERY DAY AT BEDTIME Rx Instructions: TAKE 1 TABLET BY MOUTH EVERY DAY AT BEDTIME Referrals / Follow Up: Rach Gaona MD [Primary Care Provider] - 12/08/22 2:20 pm Disposition Disposition (needs filled in before D/C Order can be placed): Home, Self Care Charges/Coding Visit Charges Inpatient E&M: 39249 Disch Hosp >30min
--- NOTE | 2022-11-26 09:59 | PHA.DC.MR.R ---
Pharmacy [place] Med Reconciliation Pharmacy Service has performed discharge medication reconciliation for this patient. The patient's discharge medication list was reviewed for discrepancies and discrepancies were resolved. Medications at Discharge Home Medications aspirin 81 mg chewable tablet 81 mg PO DAILY HEART 08/15/13 estradiol 2 mg tablet (Estrace) 2 mg PO DAILY 08/15/13 montelukast 10 mg tablet 10 mg PO DAILY 08/15/13 tizanidine 4 mg tablet (Zanaflex) 6 mg PO QHS 08/15/13 diclofenac sodium 3 % topical gel 1 applicatio TP DAILY PRN PRN arthritis 06/11/20 diphenhydramine HCl 25 mg capsule 25 mg PO TID PRN PRN Itching 06/11/20 hydroxyzine HCl 25 mg tablet 25 - 50 mg PO Q6H PRN anxiety/itching 06/11/20 atorvastatin 40 mg tablet 40 mg PO DAILY #30 tabs 06/12/20 pantoprazole 40 mg tablet,delayed release 40 mg PO DAILY #30 tabs 06/12/20 albuterol sulfate 90 mcg/actuation aerosol inhaler (Ventolin HFA) 2 puff inhalation Q4H PRN PRN Wheezing ##1 03/25/21 losartan 25 mg tablet 25 mg PO DAILY 03/25/21 metoprolol tartrate 25 mg tablet 75 mg PO DAILY 03/25/21 ondansetron HCl 4 mg tablet 4 mg PO Q6H PRN nausea and vomiting #20 tabs 01/31/22 diltiazem HCl 180 mg PO/SL QHS htn 06/06/22 hydrochlorothiazide 12.5 mg capsule 12.5 mg PO DAILY HTN 06/06/22 metformin 500 mg tablet,extended release 24 hr 500 mg PO BIDCM DM 06/06/22 buspirone 30 mg tablet 30 mg PO BID #30 tabs 10/06/22 clonazepam 0.5 mg tablet 0.5 mg PO BID 30 days #60 tabs 10/06/22 sertraline 100 mg tablet 100 mg PO QHS 90 days #90 tabs 10/06/22 mirtazapine 30 mg tablet See Rx Instructions .Route .COMPLEX #90 tabs 10/13/22 olanzapine 2.5 mg tablet 2.5 mg PO QHS MOOD 11/22/22
[2022-11-26] MEDS: Insulin Lispro 100 UNIT/ML INSULN.PEN SC (11:45)
[2022-11-26 12:12] LABS: Bedside Glucose 205 mg/dL (74-106)
== END 2022-11-26 12:24 | disposition home or self-care (01) | DRG 897 ==
LOC: ED 16:25 → MS3 16:37
PROVIDERS: Family Medicine; Admitting Provider Internal Medicine; Emergency Provider Student in an Organized Health Care Education/Training Program; PCP Internal Medicine; Visit Provider Student in an Organized Health Care Education/Training Program
DX: F10.239 Alcohol dependence with withdrawal, unspecified (principal); N17.9 Acute kidney failure, unspecified; E11.9 Type 2 diabetes mellitus without complications; F31.9 Bipolar disorder, unspecified; K70.10 Alcoholic hepatitis without ascites; M79.7 Fibromyalgia; I10 Essential (primary) hypertension; F17.210 Nicotine dependence, cigarettes, uncomplicated; E78.5 Hyperlipidemia, unspecified; E87.6 Hypokalemia; I44.0 Atrioventricular block, first degree; K21.9 Gastro-esophageal reflux disease without esophagitis; F41.9 Anxiety disorder, unspecified; R07.9 Chest pain, unspecified; F43.10 Post-traumatic stress disorder, unspecified; Z79.82 Long term (current) use of aspirin; Z79.84 Long term (current) use of oral hypoglycemic drugs; R53.81 Other malaise; R29.6 Repeated falls; Y90.8 Blood alcohol level of 240 mg/100 ml or more
CPT/HCPCS: 36415; 71045; 80053; 80307; 82077; 82962; 83735; 84100; 84484; 85025; 93005; 97162; 97166; 99283; J7030; J7040; A4216

== ENCOUNTER 2022-12-05 12:18 | Emergency (ER) | payer OTHER, SELFPAY ==
[2022-12-05 12:19] VITALS: BP 152/89; PULSE 90; RESP 18; TEMP 36.6; O2SAT 100; BMI 23.9
--- NOTE | 2022-12-05 13:11 | EDS_ITS ---
<Statement entered by Elizabeth Boothe MD - 12/05/22 16:05> I have personally performed a face to face assessment of the patient and have reviewed the DARIUSZ Note. Patient presents after recent fall down steps. She states 3 to 4 days ago her cat ran in front of her and caused her to fall down several steps, potentially up to 13 steps. She complains of pain to her bilateral shoulders, lower extremities, head, and neck. She has been taking Tylenol, ibuprofen, and muscle relaxers without improvement. Patient sitting upright in bed no acute distress. Alert and talkative. Head and neck examination reveals mild low C-spine tenderness. No step-offs noted. Heart is regular rate and rhythm. Lung sounds are clear. Abdomen is soft and nontender. Extremity examination reveals scattered areas of ecchymoses. Good range of motion of all extremities with no focal deficits. CT scan of the head and C-spine obtained to evaluate for intracranial injury or C-spine fracture. The studies reveal chronic changes with no acute findings. Patient will be given a short course of analgesics to help with pain. Return instructions given. HPI History of Present Illness Chief Complaint: Fall Narrative Narrative: Patient presenting today for evaluation after a fall that occurred on Thursday. She reports that she was walking down the steps and her cat walked in front of her causing her to trip and fall down 13 steps. She thinks that she lost consciousness and did hit her head. She denies use of blood thinners. She reports pain to her bilateral shoulders, neck, head, and right knee. She has not had any nausea, vomiting, excessive fatigue, or dizziness. She reports that since the incident she has just not felt right. [facility] Medical History Alcohol abuse Alcohol use disorder, moderate, in early remission Anxiety Anxiety and depression Bipolar 1 disorder Bipolar disorder Chronic alcoholism Chronic back pain Depression Diabetes Fibromyalgia GERD (gastroesophageal reflux disease) Hiatus hernia Hypertension Hypertension Osteoporosis PTSD (post-traumatic stress disorder) Smoker Substance abuse Home Medications aspirin 81 mg chewable tablet 81 mg PO DAILY HEART 08/15/13 [History Last Taken 06/06/22] estradiol 2 mg tablet (Estrace) 2 mg PO DAILY 08/15/13 [History Last Taken 06/06/22] montelukast 10 mg tablet 10 mg PO DAILY 08/15/13 [History Last Taken 06/06/22] tizanidine 4 mg tablet (Zanaflex) 6 mg PO QHS 08/15/13 [History Last Taken 06/05/22] diclofenac sodium 3 % topical gel 1 applicatio TP DAILY PRN PRN arthritis 06/11/20 [History Last Taken 06/06/22] diphenhydramine HCl 25 mg capsule 25 mg PO TID PRN PRN Itching 06/11/20 [History Last Taken 06/10/20] hydroxyzine HCl 25 mg tablet 25 - 50 mg PO Q6H PRN anxiety/itching 06/11/20 [History Last Taken 06/06/22] atorvastatin 40 mg tablet 40 mg PO DAILY #30 tabs 06/12/20 [Rx Last Taken 06/06/22] pantoprazole 40 mg tablet,delayed release 40 mg PO DAILY #30 tabs 06/12/20 [Rx Last Taken 06/05/22] albuterol sulfate 90 mcg/actuation aerosol inhaler (Ventolin HFA) 2 puff inhalation Q4H PRN PRN Wheezing ##1 03/25/21 [Rx Last Taken 2 Days Ago ~06/04/22] losartan 25 mg tablet 25 mg PO DAILY 03/25/21 [History Last Taken 06/06/22] metoprolol tartrate 25 mg tablet 75 mg PO DAILY 03/25/21 [History Last Taken 06/06/22] ondansetron HCl 4 mg tablet 4 mg PO Q6H PRN nausea and vomiting #20 tabs 01/31/22 [Rx Last Taken 06/05/22] diltiazem HCl 180 mg PO/SL QHS htn 06/06/22 [History Last Taken 06/05/22 22:00] hydrochlorothiazide 12.5 mg capsule 12.5 mg PO DAILY HTN 06/06/22 [History Last Taken 06/06/22] metformin 500 mg tablet,extended release 24 hr 500 mg PO BIDCM DM 06/06/22 [History Last Taken 06/06/22] buspirone 30 mg tablet 30 mg PO BID #30 tabs 10/06/22 [Rx Last Taken Unknown] clonazepam 0.5 mg tablet 0.5 mg PO BID 30 days #60 tabs 10/06/22 [Rx Last Taken Unknown] sertraline 100 mg tablet 100 mg PO QHS 90 days #90 tabs 10/06/22 [Rx Last Taken Unknown] mirtazapine 30 mg tablet See Rx Instructions .Route .COMPLEX #90 tabs 10/13/22 [Rx Last Taken Unknown] olanzapine 2.5 mg tablet 2.5 mg PO QHS MOOD 11/22/22 [History Last Taken Unknown] hydrocodone-acetaminophen 5-325mg 5mg-325mg 1 tab PO Q4H PRN PRN Pain 3 days #10 TABLETS 12/05/22 [Rx Last Taken Unknown] Allergy/AdvReac Type Severity Reaction Status Date / Time Penicillins Allergy Mild Itching Verified 12/05/22 12:21 banana Allergy Food Verified 12/05/22 12:21 Allergy codeine Allergy Itching Verified 12/05/22 12:21 benzonatate AdvReac eye pain Verified 12/05/22 12:21 [From Trey Murillo] Surgical History History of bilateral breast reduction surgery History of History of hemorrhoidectomy History of hysterectomy Social History Smoking Status: Current every day smoker tobacco type: cigarettes alcohol intake: current substance use type: does not use ROS ROS ED Constitutional Constitutional ED: Denies chills or fever(s) Eyes Eyes: Denies blurry vision or change in vision Cardiovascular Cardiovascular: Denies chest pain or palpitations Respiratory/Chest Respiratory/Chest: Denies cough or dyspnea Gastrointestinal Gastrointestinal: Denies abdominal pain, nausea or vomiting Genitourinary Genitourinary ED: Denies dysuria, hematuria or urinary urgency Musculoskeletal Musculoskeletal: Reports arthralgias, myalgias and neck pain; Denies back pain Integumentary Reports Abrasions; Denies rash Neurologic Neurologic: Reports headache(s); Denies confusion, dizziness, paresthesias or weakness EXAM Physical Exam Const Vital Signs: 12/05/22 12:19 Temperature 97.9 F Temperature Source Temporal Pulse Rate 90 Respiratory Rate 18 Blood Pressure 152/89 H Blood Pressure Mean 110 Pulse Ox 100 Oxygen Delivery Method Room Air Positive well nourished, well developed and no apparent distress General Appearance ED: well developed HEENT Reports normocephalic and head/scalp atraumatic Mouth ED: Yes moist mucous membranes normal Eyes PERRL and EOMs intact bilaterally Neck supple Neck Narrative: No midline cervical tenderness, pain to the left trapezius muscle, limited range of motion in the neck due to pain. Chest Wall inspection of chest normal Resp normal respiratory effort and clear to auscultation bilaterally Cardio regular rate and regular rhythm GI soft to palpation, non-tender, non-distended and no masses Back/Spine normal ROM and normal to inspection Extremity normal to inspection and full ROM Extremity Narrative: Right and left shoulders have a small abrasion to the superior aspect but there is full range of motion and no pain to palpation to the right shoulder, very min imal pain to palpation to the left shoulder. Area of ecchymosis to the left shoulder. Right knee has a small abrasion with full range of motion and no pain to palpation. Radial and DP pulses 2+ bilaterally, good capillary refill, sensation intact. Neuro oriented x3, CN's II-XII intact bilaterally, moves all extremities, no focal motor deficits and no sensory deficits noted Sensorium / Orientation: awake and alert Motor Exam: strength 5/5 throughout Psych mental status grossly normal and thought process normal Skin no rashes or lesions noted and no wounds MDM MDM MDM Narrative Medical decision making narrative: Patient presenting today for evaluation after a mechanical fall down the steps on Thursday. She reports pain to her neck, shoulders, right knee, and to her head. She did hit her head and there was loss of consciousness. She is not on any blood thinners and does have a history of alcohol abuse. I do not feel that any x-rays are indicated for her shoulders as she has full range of motion without pain to palpation, there is some mild ecchymosis to the left shoulder with healed abrasions bilaterally. Her right knee is also very unremarkable, I do not feel that any x-rays are indicated and she is able to walk without difficulty. She has left-sided neck tenderness to the trapezius muscle with pain with range of motion. She has had headaches and reports she just does not feel right. Head and neck CT will be obtained to rule out intracranial bleed and cervical fracture and are negative for any acute findings. She will be given a prescription for [place] and is to follow-up with her PCP. I do think that she has a concussion and a cervical strain. She has been given supportive care measures and return instructions. She is comfortable with plan. Radiography Diagnostic Testing: Clinical Impression(s) from Imaging Studies Brain CT 12/05/22 13:25 IMPRESSION: Chronic involutional changes of the brain. Electronically Signed: Lucius Cohen MD at 13:48 EDT , Cervical Spine CT 12/05/22 13:25 IMPRESSION: Multilevel degenerative changes, as described above. Electronically Signed: Lucius Cohen MD at 13:50 EDT , Discharge Plan Triage Chief Complaint: Fall ED Midlevel Provider: Joaquina Hope ED Provider: Elizabeth Boothe Dx/Rx/DC Orders Clinical Impression: Contusion of knee, Concussion, Neck strain, Fall, Contusion of left shoulder, Contusion of shoulder, right Instructions: ED Concussion, ED Neck Sprain or Strain Prescriptions: New hydrocodone-acetaminophen 5-325 mg tablet 1 tab PO Q4H PRN PRN (Reason: Pain) 3 Days Qty: 10 0RF No Action buspirone 30 mg tablet 30 mg PO BID Qty: 30 2RF clonazepam 0.5 mg tablet 0.5 mg PO BID 30 Days Qty: 60 1RF sertraline 100 mg tablet 100 mg PO QHS 90 Days Qty: 90 2RF tizanidine [Zanaflex] 4 MG tablet 6 mg PO QHS aspirin 81 MG tablet,chewable 81 mg PO DAILY estradiol [Estrace] 2 MG tablet 2 mg PO DAILY montelukast 10 MG tablet 10 mg PO DAILY diclofenac sodium 100 GM gel 1 applicatio TP DAILY PRN PRN (Reason: arthritis) diphenhydramine HCl 25 MG capsule 25 mg PO TID PRN PRN (Reason: Itching) hydroxyzine HCl 25 MG tablet 25 - 50 mg PO Q6H PRN (Reason: anxiety/itching) pantoprazole 40 MG tablet 40 mg PO DAILY Qty: 30 0RF atorvastatin 40 MG tablet 40 mg PO DAILY Qty: 30 0RF losartan 25 mg tablet 25 mg PO DAILY metoprolol tartrate 25 MG tablet 75 mg PO DAILY albuterol sulfate [Ventolin HFA] 1 INHALER inhaler 2 puff inhalation Q4H PRN PRN (Reason: Wheezing) Qty: 1 0RF ondansetron HCl 4 mg tablet 4 mg PO Q6H PRN (Reason: nausea and vomiting) Qty: 20 0RF hydrochlorothiazide 12.5 mg capsule 12.5 mg PO DAILY Patient Comments: TAKE 1 CAPSULE BY MOUTH ONCE DAILY metformin 500 mg tablet extended release 24 hr 500 mg PO BIDCM Patient Comments: TAKE 1 TABLET BY MOUTH TWICE A DAY WITH MEALS diltiazem HCl 180 mg PO/SL QHS olanzapine 2.5 mg tablet 2.5 mg PO QHS mirtazapine 30 mg tablet See Rx Instructions .ROUTE .COMPLEX Qty: 90 1RF Dose Instruction: TAKE 1 TABLET BY MOUTH EVERY DAY AT BEDTIME Rx Instructions: TAKE 1 TABLET BY MOUTH EVERY DAY AT BEDTIME Primary Care Provider: Rach Gaona Referrals: Rach Gaona MD [Primary Care Provider] - 3-5 Days Activity Restrictions/Additional Instructions: Please ice your neck and shoulders for the next few days several times a day and follow-up with your PCP. Return for any worsening of your symptoms. Disposition Disposition: Home, Self Care Discharge Date/Time: 12/05/22 14:25
--- NOTE | 2022-12-05 13:25 | CT_ITS ---
STUDY: CT BRAIN WITHOUT CONTRAST REASON FOR EXAM: Female, 62 years old. Head injury due to a fall. RADIATION DOSAGE (If Supplied By Facility): CTDIvol = ( 44.99 ) mGy, DLP = ( 762.36 ) mGycm TECHNIQUE: Transaxial CT imaging of the brain was performed without administration of intravenous contrast material. Individualized dose optimization techniques were used for this CT. COMPARISON: No relevant priors. FINDINGS: Normal soft tissue structures. Normal calvarium. There is mild cerebral atrophy with widening of the extra-axial spaces and ventricular dilatation. There are areas of decreased attenuation within the white matter tracts of the supratentorial brain, consistent with microvascular disease changes. Normal basal ganglia and thalami. Normal brainstem. Normal cerebellum. There is no intracranial hemorrhage. There are no findings of an acute ischemic infarction. Normal visualized paranasal sinuses. CT/Brain/Head without Contrast IMPRESSION: Chronic involutional changes of the brain. Electronically Signed: Lucius Cohen MD at 13:48 EDT ,
--- NOTE | 2022-12-05 13:25 | CT_ITS ---
STUDY: CT CERVICAL SPINE WITHOUT CONTRAST REASON FOR EXAM: Female, 62 years old. Neck injury due to a fall. RADIATION DOSAGE (If Supplied By Facility): CTDIvol = ( 22.85 ) mGy, DLP = ( 480.75 ) mGycm TECHNIQUE: High resolution transaxial imaging was performed without contrast material. Sagittal and coronal images were reconstructed. Individualized dose optimization techniques were used for this CT. COMPARISON: None FINDINGS: Normal craniovertebral junction. Normal anterior atlantoaxial articulation. Normal odontoid process. There is reversal of the normal cervical lordosis. Normal vertebral bodies and posterior osseous elements. C2-3: Normal endplates. Normal disc height and morphology. Normal central canal and intervertebral neuroforamina. C3-4: Mild degree of disc space narrowing and mild anterior spondylosis. Uncovertebral arthrosis. No significant stenosis seen. C4-5: Moderate degree of disc space narrowing with spondylosis. Uncovertebral arthrosis. Bilateral neural foraminal stenosis worse on the right side. C5-6: Moderate degree of disc space narrowing as well as a uncovertebral arthrosis right greater than left with bilateral neural foraminal stenosis more prominent on the right side. C6-7: Disc space narrowing. Anterior spondylosis. C7-T1: Normal endplates. Normal disc height and morphology. Normal central canal and intervertebral neuroforamina. Normal visualized soft tissue structures. CT/Spine Cervical without Contras IMPRESSION: Multilevel degenerative changes, as described above. Electronically Signed: Lucius Cohen MD at 13:50 EDT ,
== END 2022-12-05 14:25 | disposition home or self-care (01) ==
PROVIDERS: Emergency Provider Emergency Medicine; PCP Internal Medicine; Visit Provider Emergency Medicine
DX: S06.0X0A Concussion without loss of consciousness, initial encounter (principal); E11.9 Type 2 diabetes mellitus without complications; S40.011A Contusion of right shoulder, initial encounter; S16.1XXA Strain of muscle, fascia and tendon at neck level, initial encounter; F17.210 Nicotine dependence, cigarettes, uncomplicated; I10 Essential (primary) hypertension; S40.012A Contusion of left shoulder, initial encounter; S80.01XA Contusion of right knee, initial encounter; W10.9XXA Fall (on) (from) unspecified stairs and steps, initial encounter; Z79.82 Long term (current) use of aspirin; F41.8 Other specified anxiety disorders; K21.9 Gastro-esophageal reflux disease without esophagitis; Z79.899 Other long term (current) drug therapy; Z79.84 Long term (current) use of oral hypoglycemic drugs; Z90.710 Acquired absence of both cervix and uterus
CPT/HCPCS: 70450; 72125; 99282

== ENCOUNTER 2023-01-08 05:02 | Inpatient (IN) | payer OTHER, SELFPAY ==
[2023-01-08] VITALS (10 sets, daily range): BP systolic 145–160; BP diastolic 83–92; PULSE 80–102; RESP 15–24; TEMP 36.2–36.8; O2SAT 94–98; BMI 24.1; BMI 23.8
--- NOTE | 2023-01-08 05:25 | EDS_ITS ---
HPI History of Present Illness Chief Complaint: Substance Abuse Detail of Chief Complaint: Alcohol withdrawal Informant: patient Narrative Narrative: Patient presents to the emergency department complaining of alcohol withdrawal and requesting detox from alcohol. Patient states that she last went through a detox program here at our hospital about 2 months ago. Patient's last drink was around 6 PM last evening. Patient drinks beer and liquor and wine. Patient also uses crack cocaine and last used about 4 days ago. Patient had 1 episode of vomiting yesterday. She denies abdominal pain. She feels anxious and shaky. She complains of diarrhea. [facility] Medical History (Updated 01/08/23 @ 05:[address] Francesca Naidu MD) Anxiety and depression Bipolar 1 disorder Chronic alcoholism Chronic back pain Fibromyalgia GERD (gastroesophageal reflux disease) Hypertension Hypertension Osteoporosis PTSD (post-traumatic stress disorder) Smoker Substance abuse Home Medications aspirin 81 mg chewable tablet 81 mg PO DAILY HEART 08/15/13 [History Last Taken 06/06/22] estradiol 2 mg tablet (Estrace) 2 mg PO DAILY hormones 08/15/13 [History Last Taken 06/06/22] montelukast 10 mg tablet 10 mg PO DAILY seasonal 08/15/13 [History Last Taken 06/06/22] tizanidine 4 mg tablet (Zanaflex) 6 mg PO QHS muscle spasms 08/15/13 [History Last Taken 06/05/22] diclofenac sodium 3 % topical gel 1 applicatio TP DAILY PRN PRN arthritis 06/11/20 [History Last Taken 06/06/22] diphenhydramine HCl 25 mg capsule 25 mg PO TID PRN PRN Itching 06/11/20 [History Last Taken 06/10/20] hydroxyzine HCl 25 mg tablet 25 - 50 mg PO Q6H PRN anxiety/itching 06/11/20 [History Last Taken 06/06/22] atorvastatin 40 mg tablet 40 mg PO DAILY cholesterol #30 tabs 06/12/20 [Rx Last Taken 06/06/22] pantoprazole 40 mg tablet,delayed release 40 mg PO DAILY stomach acid #30 tabs 06/12/20 [Rx Last Taken 06/05/22] albuterol sulfate 90 mcg/actuation aerosol inhaler (Ventolin HFA) 2 puff inhalation Q4H PRN PRN Wheezing ##1 03/25/21 [Rx Last Taken 2 Days Ago ~06/04/22] losartan 25 mg tablet 25 mg PO DAILY htn 03/25/21 [History Last Taken 06/06/22] metoprolol tartrate 25 mg tablet 75 mg PO DAILY blood pressu 03/25/21 [History Last Taken 06/06/22] ondansetron HCl 4 mg tablet 4 mg PO Q6H PRN nausea and vomiting #20 tabs 01/31/22 [Rx Last Taken 06/05/22] diltiazem HCl 180 mg PO/SL QHS htn 06/06/22 [History Last Taken 06/05/22 22:00] hydrochlorothiazide 12.5 mg capsule 12.5 mg PO DAILY HTN 06/06/22 [History Last Taken 06/06/22] metformin 500 mg tablet,extended release 24 hr 500 mg PO BIDCM DM 06/06/22 [History Last Taken 06/06/22] buspirone 30 mg tablet 30 mg PO BID bipolar/depression #30 tabs 10/06/22 [Rx Last Taken Unknown] clonazepam 0.5 mg tablet 0.5 mg PO BID anxiety 30 days #60 tabs 10/06/22 [Rx Last Taken Unknown] sertraline 100 mg tablet 100 mg PO QHS sleep a 90 days #90 tabs 10/06/22 [Rx Last Taken Unknown] mirtazapine 30 mg tablet See Rx Instructions .Route .COMPLEX sleep aide #90 tabs 10/13/22 [Rx Last Taken Unknown] hydrocodone-acetaminophen 5-325mg 5mg-325mg 1 tab PO Q4H PRN PRN Pain 3 days #10 TABLETS 12/05/22 [Rx Last Taken Unknown] olanzapine 2.5 mg tablet 2.5 mg PO QHS MOOD 90 days #90 tabs 12/08/22 [Rx Last Taken Unknown] Allergy/AdvReac Type Severity Reaction Status Date / Time Penicillins Allergy Mild Itching Verified 01/08/23 05:10 banana Allergy Food Verified 01/08/23 05:10 Allergy codeine Allergy Itching Verified 01/08/23 05:10 benzonatate AdvReac eye pain Verified 01/08/23 05:10 [From Trey Murillo] Surgical History History of bilateral breast reduction surgery History of History of hemorrhoidectomy History of hysterectomy Social History (Updated 01/08/23 @ 05:[address] Francesca Naidu MD) household members: none Smoking Status: Current every day smoker tobacco type: cigarettes Smoking packs per day: 1 Smoking cigarettes per day: 20.0 alcohol intake: current alcohol intake frequency: 3 or more drinks per day substance use type: crack/cocaine ROS ROS ED ROS Narrative Anxious/shaky Review of Systems ROS Unobtainable: other Constitutional Constitutional ED: Reports lethargy; Denies chills, fever(s), sweats or weight loss Eyes Eyes: Denies blurry vision, change in vision or diplopia ENT ENT ED: Denies rhinorrhea or sore throat Cardiovascular Cardiovascular: Denies chest pain, orthopnea or racing heartbeat Respiratory/Chest Respiratory/Chest: Denies cough, dyspnea, dyspnea on exertion, orthopnea or sputum Gastrointestinal Gastrointestinal: Reports diarrhea, nausea and vomiting; Denies abdominal pain Genitourinary Genitourinary ED: Denies dysuria, hematuria or urinary frequency Musculoskeletal Musculoskeletal: Denies arthralgias, back pain, myalgias or neck pain Integumentary Denies abscess, Abrasions or rash Neurologic Neurologic: Denies headache(s) or weakness Psychiatric Psychiatric: Denies anxiety, depression or suicidal thoughts Endocrine Endocrinology: Denies polydipsia, polyphagia or polyuria Hematologic/Lymphatic Hematologic/Lymphatic: Denies easy bleeding, easy bruising or lymphadenopathy Allergic/Immunologic Allergic/Immunologic ED: Denies mouth swelling, tongue swelling or urticaria EXAM Physical Exam Narrative Exam Narrative: Patient shaky as I enter the room. Const Vital Signs: 01/08/23 05:03 Temperature 97.1 F L Temperature Source Temporal Pulse Rate 102 H Respiratory Rate 15 Blood Pressure 160/84 H Blood Pressure Mean 109 Pulse Ox 94 Oxygen Delivery Method Room Air Positive well nourished and well developed General Appearance ED: well developed and NAD HEENT Reports TM's clear and moist mucous membranes normocephalic and atraumatic; Negative for trauma or tenderness Tympanic Membrane ED: Yes TM's clear Eyes PERRL and EOMs intact bilaterally General Eye ED: Negative for pale conjunctiva or scleral icterus Neck no lymphadenopathy, supple and no JVD General: Negative for tenderness Chest Wall inspection of chest normal and palpation of chest normal Chest: Negative for tenderness Resp normal respiratory effort and clear to auscultation bilaterally Effort and Inspection: Negative for respiratory distress or pain with movement Auscultation: Negative for rhonchi, wheezes or diminished lung sounds Cardio regular rhythm, S1 normal heart sound, S2 normal heart sound and no murmurs Rate: tachycardic Peripheral Pulses: pulses 2+ throughout GI normal to inspection, nondistended, normoactive bowel sounds, soft to palpation, non-tender, non-distended and no masses Back/Spine no CVA tenderness and no thoracic nor lumbar tenderness Extremity normal to inspection General Extremety ED: Negative for edema General Extremity: Negative for edema Neuro oriented x3, CN's II-XII intact bilaterally, no sensory deficits noted and gait normal Sensorium / Orientation: awake, alert, oriented to person, oriented to place and oriented to time Motor Exam: strength 5/5 throughout and strength abnormal Psych mental status grossly normal Skin no rashes or lesions noted and no wounds MDM MDM MDM Narrative Medical decision making narrative: Patient requesting detox from alcohol. IV line will be established. Patient was given Zofran for her nausea. I also ordered a milligram of Ativan for anxiety. Case will be discussed with hospitalist to evaluate patient for admission for alcohol detox. Lab Data Labs: Laboratory Results - last 24 hr 01/08/23 02:00 Urine Opiates Screen NEGATIVE Urine Methadone Screen NEGATIVE Ur Barbiturates Screen NEGATIVE Ur Phencyclidine Scrn NEGATIVE Ur Amphetamines Screen NEGATIVE MDMA (Ecstasy) Screen NEGATIVE U Benzodiazepines Scrn NEGATIVE Urine Cocaine Screen POSITIVE H U Cannabinoids Screen NEGATIVE Ur Drug Screen Comment Discharge Plan Dx/Rx/DC Orders Clinical Impression: Admitted to alcohol detoxification center, Illicit drug use, Alcohol withdrawal, History of hypertension Disposition Disposition: Acute Care Hospital [facility] Discharge Date/Time: 01/08/23 06:34
--- NOTE | 2023-01-08 05:31 | HP.PCM.HOS_ITS ---
HPI - General General Date of Admission: 01/08/23 Date of Service: 01/08/23 Chief Complaint: EtOH Withdrawal HPI Narrative The patient is a 61 y/o F w/ PMHx: Diabetes mellitus type II, Anxiety and Depression/Bipolar disorder/PTSD, GERD, HTN, HLD, Tobacco use, Chronic back pain, EtOH abuse (whiskey/beer/wine coolers daily), Polysubstance abuse (Cocaine) who presents to the [facility] ED on 01/08/23 with onset of acute alcohol withdrawal with last alcohol intake at 6 PM the evening prior to day of presentation with also reported last use of crack cocaine approximately 4 days prior with onset of tremors, anxiousness, restlessness, nausea and emesis as well as tactile disturbances prompting ED return as desired for sobriety with last admission for detoxification 11/2022. Patient notes that when she left she remained sober for approximately 1 to 1.5 weeks prior to drinking again. She states that she thinks it is hard because when she goes home she is alone and this often sets her off drinking again. She does have a good friend who is pre sent and very supportive with no substance abuse history himself. Discussed possible discharge plans including a longer term situation and when she is completed the acute inpatient phase and she does seem interested. In the ED patient is visibly nauseated, mildly agitated with significant tremors. In the ED work-up included T97.1, heart rate 102, BP 160/84, respiratory rate 15, 94% on room air. In the ED pending CBC, CMP, alcohol level, UDS upon requested evaluation of patient. In the ED patient administered Zofran 4 mg IV x1 as well as Ativan 1 mg IV x1. [facility] Medical History (Updated 01/08/23 @ 05:[address] Francesca Naidu MD) Anxiety and depression Bipolar 1 disorder Chronic alcoholism Chronic back pain Fibromyalgia GERD (gastroesophageal reflux disease) Hypertension Hypertension Osteoporosis PTSD (post-traumatic stress disorder) Smoker Substance abuse Home Medications aspirin 81 mg chewable tablet 81 mg PO DAILY HEART 08/15/13 [History Last Taken 06/06/22] estradiol 2 mg tablet (Estrace) 2 mg PO DAILY 08/15/13 [History Last Taken 06/06/22] montelukast 10 mg tablet 10 mg PO DAILY 08/15/13 [History Last Taken 06/06/22] tizanidine 4 mg tablet (Zanaflex) 6 mg PO QHS 08/15/13 [History Last Taken 06/05/22] diclofenac sodium 3 % topical gel 1 applicatio TP DAILY PRN PRN arthritis 06/11/20 [History Last Taken 06/06/22] diphenhydramine HCl 25 mg capsule 25 mg PO TID PRN PRN Itching 06/11/20 [History Last Taken 06/10/20] hydroxyzine HCl 25 mg tablet 25 - 50 mg PO Q6H PRN anxiety/itching 06/11/20 [History Last Taken 06/06/22] atorvastatin 40 mg tablet 40 mg PO DAILY #30 tabs 06/12/20 [Rx Last Taken 06/06/22] pantoprazole 40 mg tablet,delayed release 40 mg PO DAILY #30 tabs 06/12/20 [Rx Last Taken 06/05/22] albuterol sulfate 90 mcg/actuation aerosol inhaler (Ventolin HFA) 2 puff inhalation Q4H PRN PRN Wheezing ##1 03/25/21 [Rx Last Taken 2 Days Ago ~06/04/22] losartan 25 mg tablet 25 mg PO DAILY 03/25/21 [History Last Taken 06/06/22] metoprolol tartrate 25 mg tablet 75 mg PO DAILY 03/25/21 [History Last Taken 06/06/22] ondansetron HCl 4 mg tablet 4 mg PO Q6H PRN nausea and vomiting #20 tabs 01/31/22 [Rx Last Taken 06/05/22] diltiazem HCl 180 mg PO/SL QHS htn 06/06/22 [History Last Taken 06/05/22 22:00] hydrochlorothiazide 12.5 mg capsule 12.5 mg PO DAILY HTN 06/06/22 [History Last Taken 06/06/22] metformin 500 mg tablet,extended release 24 hr 500 mg PO BIDCM DM 06/06/22 [History Last Taken 06/06/22] buspirone 30 mg tablet 30 mg PO BID #30 tabs 10/06/22 [Rx Last Taken Unknown] clonazepam 0.5 mg tablet 0.5 mg PO BID 30 days #60 tabs 10/06/22 [Rx Last Taken Unknown] sertraline 100 mg tablet 100 mg PO QHS 90 days #90 tabs 10/06/22 [Rx Last Taken Unknown] mirtazapine 30 mg tablet See Rx Instructions .Route .COMPLEX #90 tabs 10/13/22 [Rx Last Taken Unknown] hydrocodone-acetaminophen 5-325mg 5mg-325mg 1 tab PO Q4H PRN PRN Pain 3 days #10 TABLETS 12/05/22 [Rx Last Taken Unknown] olanzapine 2.5 mg tablet 2.5 mg PO QHS MOOD 90 days #90 tabs 12/08/22 [Rx Last Taken Unknown] Allergy/AdvReac Type Severity Reaction Status Date / Time Penicillins Allergy Mild Itching Verified 01/08/23 05:10 banana Allergy Food Verified 01/08/23 05:10 Allergy codeine Allergy Itching Verified 01/08/23 05:10 benzonatate AdvReac eye pain Verified 01/08/23 05:10 [From Trey Murillo] Family History other other (Patient does not know her paternal or maternal family history.) Surgical History History of bilateral breast reduction surgery History of History of hemorrhoidectomy History of hysterectomy Social History (Updated 01/08/23 @ 05:[address] Francesca Naidu MD) household members: none Smoking Status: Current every day smoker tobacco type: cigarettes Smoking packs per day: 1 Smoking cigarettes per day: 20.0 alcohol intake: current alcohol intake frequency: 3 or more drinks per day substance use type: crack/cocaine ROS ROS Narrative Admission Review of Systems: CONSTITUTIONAL: No weight loss, fever, chills, + weakness or fatigue. HEENT: Eyes: No visual loss, blurred vision, double vision or yellow sclerae. Ears, Nose, Throat: No hearing loss, sneezing, congestion, runny nose or sore throat. SKIN: No rash or itching, lesions, wounds. CARDIOVASCULAR: No chest pain, chest pressure or chest discomfort, palpitations, edema, orthopnea, syncopal events. RESPIRATORY: No shortness of breath, cough or sputum, wheezing, hemoptysis. GASTROINTESTINAL: + anorexia, nausea, vomiting. No diarrhea, abdominal pain, melena, BRBPR. GENITOURINARY: No dysuria, frequency, urgency or retention. NEUROLOGICAL: + Significant tremors, tactile disturbances, agitation. No headache, dizziness, syncope, paralysis, ataxia, numbness or tingling in the extremities, focal weakness, change in bowel or bladder control, seizure. MUSCULOSKELETAL: + muscle, back pain, joint pain or stiffness. HEMATOLOGIC: + anemia, bleeding or bruising. LYMPHATICS: No enlarged nodes. No history of splenectomy. PSYCHIATRIC: + history of depression or anxiety/bipolar disorder. ENDOCRINOLOGIC: No reports of sweating, cold or heat intolerance. No polyuria or polydipsia. ALLERGIES: + history of rhinitis. Vital Signs Vital Signs Vital Signs: 01/08/23 05:03 Temperature 97.1 F L Temperature Source Temporal Pulse Rate 102 H Respiratory Rate 15 Blood Pressure 160/84 H Blood Pressure Mean 109 Pulse Ox 94 Oxygen Delivery Method Room Air Weight Weight: 132 lb 0.91 oz Body Mass Index (BMI) 24.1 Physical Exam Narrative Physical Examination: General: Awake, alert, oriented x 3 and cooperative, seated upright in the ED bed, visibly withdrawing with significant tremors. Skin: Normal color, normal turgor, no icterus, no cyanosis. HEENT: AT/NC, EOMI, PERRLA, dry MM, no carotid bruits or JVD noted. Lungs: Mildly diminished, greater bases, proper effort, no rales, ronchi or wheezing. Heart: Tachycardic with regular rhythm; no gallop, rub audible. Abdomen: Soft, NTTP, ND, hyperactive BS, + discerned HM. Extremities: No cyanosis, clubbing, or edema. Neurological: Patient awake, alert, oriented as noted, cognitive function intact ; pupils equally reactive to light and accommodation, cranial nerves II-XII grossly normal, moving all 4 extremities, no focal deficits, strength moderately to severely global decrease secondary to acute presentation, admits to tactile disturbances, significant visualized tremors currently. Psychiatric: Affect appears anxious, restless, no acute evidence of depressive or anxiety feelings but does have significant underlying psychiatric history. Results Lab / Micro Data 01/08/23 05:45 01/08/23 05:45 Assessment & Plan Assessment/Plan (1) Alcohol withdrawal: PLAN: Plan The patient is a 61 y/o F w/ PMHx: Diabetes mellitus type II, Anxiety and Depression/Bipolar disorder/PTSD, GERD, HTN, HLD, Tobacco use, Chronic back pain, EtOH abuse (whiskey/beer/wine coolers daily), Polysubstance abuse ([place] in[place]) who presents to the [facility] ED on 01/08/23 with onset of acute alcohol withdrawal with last alcohol intake at 6 PM the evening prior to day of presentation with also reported last use of crack cocaine approximately 4 days prior with onset of tremors, anxiousness, restlessness, nausea and emesis as well as tactile disturbances prompting ED return as desired for sobriety with last admission for detoxification 11/2022. #1. Acute EtOH Withdrawal with history of chronic alcoholic hepatitis: We will admit to medical surgical floor, routine labs including CBC, CMP, UDS and ethyl alcohol level pending upon request evaluation of patient, initiated and continued on protocol with taper course of Phenobarbital, as needed gabapentin, Catapres, Bentyl, Vistaril, IV fluids, IV antiemetics, Tylenol as needed for pain. Will consult Case management for assistance for transition to next level of rehabilitation care. Mag, phos levels requested. Maintain on CIWA protocol concurrently. Currently IV Ativan and Zofran being administered in the ED secondary to severity of current presentation with significant tremors. #2. Polysubstance abuse: Patient reporting history also of crack cocaine, last usage 4 days prior, UDS pending, encourage clean status. #3. Hypertension: We will continue home diltiazem, hydrochlorothiazide, metoprolol home regimen, current IV hydralazine. #4. Hyperlipidemia: We will continue home statin therapy. #5. Anxiety depression/bipolar disorder/PTSD: We will continue patient home sertraline, olanzapine, mirtazapine, hydroxyzine, clonazepam, BuSpar home regimen with recommended aggressive outpatient follow-up with psychiatry/psychology is likely contributing to substance abuse. #6. Diabetes mellitus type II: 06/08/22 5.8% prediabetic level, will hold oral metformin, ADA diet, accu checks w/ ISS. #7. GERD: We will continue patient on PPI. #8. DVT prophylaxis: Low risk. Charges/Coding Visit Charges Inpatient E&M: 80181 Init Hosp L3
[2023-01-08 05:50] LABS: Absolute Lymphocyte Count 2.91 X10^3/uL (0.83-4.51); Absolute Neutrophil Count 2.3 X10^3/uL (2.0-7.7); Basophil# 0.02 X10^3/uL; Basophil% 0.4 % (0-1); Eosinophil# 0.15 X10^3/uL; Eosinophils% 2.7 % (0-5); Hemoglobin 11.5 g/dL (12.0-15.0); Lymphocyte # 2.91 X10^3/ul (0.83-4.51); Lymphocyte % 52.1 % (19-41); Mean Corp Hgb Conc 34.8 g/dL (32-36); Mean Corpuscular Hgb 28.7 pg (27.0-32.0); Mean Corpuscular Volume 82.3 fL (81-99); Mean Platelet Vol. 8.7 fl (6.2-12.0); Monocyte# 0.25 X10^3/uL; Monocyte% 4.5 % (0-10); NRBC Flagged by Analyzer 0 % (0-5); Neutrophil # 2.25 X10^3/uL (2.7-7.7); Neutrophil % 40.1 % (47-70); Platelet Count 285 K/mm3 (150-450); RBC Distribution Width CV 12.9 % (11.6-14.6); Red Blood Count 4.01 M/mm3 (4.2-5.4); White Blood Count 5.6 K/mm3 (4.4-11.0)
[2023-01-08] MEDS: Ondansetron 4 MG/2 ML Vial IV (05:51)
[2023-01-08] MEDS: LORazepam 2 MG/ML Syringe 1 MG IV (05:53)
[2023-01-08] MEDS: 0.9% Normal Saline 1,000 ML 150 ML IV (05:54)
[2023-01-08 06:13] LABS: AST(SGOT) 23 U/L (15-37); Alanine Aminotransfer ALT/SGPT 23 U/L (13-56); Albumin, Serum 3.4 g/dL (3.2-5.0); Alkaline Phosphatase 75 U/L (45-117); Anion Gap 14 (5-15); BUN 8 mg/dL (7-18); BUN/Creat Ratio 7.3 RATIO (10-20); Chloride 96 mmol/L (98-107); Creatinine, Serum 1.09 mg/dL (0.55-1.02); EST Glomerular Filtration Rate 54 mL/min (>60); Est Glom Filt Rate - Afr Amer 65 mL/min (>60); Estimated Creatinine Clearance 42.32 ml/min; Globulin 3.5 g/dL (2.2-4.2); Glucose 75 mg/dL (74-106); Magnesium 1.6 mg/dL (1.6-2.6); Protein, Total 6.9 g/dL (6.4-8.2); Sodium Level 131 mmol/L (136-145)
[2023-01-08 06:15] LABS: Phosphorus 2.8 mg/dL (2.5-4.9)
[2023-01-08 07:27] LABS: Amphetamine Urine VISTA NEGATIVE (<1000 ng/mL); Barbiturate Urine VISTA NEGATIVE (< 200 ng/mL); Benzodiazepine Urine VISTA NEGATIVE (< 200 ng/mL); Cocaine Urine VISTA POSITIVE (< 300 ng/mL); Ecstacy Urine VISTA NEGATIVE (< 500 ng/mL); Methadone Urine VISTA NEGATIVE (< 300 ng/mL); PCP Urine VISTA NEGATIVE (< 25 ng/mL); THC Urine VISTA NEGATIVE (< 50 ng/mL); Vista UDS pH Range 5
[2023-01-08] MEDS: Folic Acid 1 MG Tablet PO (08:05)
[2023-01-08] MEDS: Thiamine Hydrochloride 100 MG Tablet PO (08:05)
[2023-01-08] MEDS: Phenobarbital 32.4 MG Tablet 64.8 MG PO ×4 (08:05→21:49)
[2023-01-08] MEDS: Aspirin 81 MG TAB.CHEW PO (08:05)
[2023-01-08] MEDS: Lactated Ringers 1,000 ML 125 ML IV (08:14)
[2023-01-08] MEDS: Glucerna Shake 120 ML LIQUID PO ×3 (08:14→16:11)
[2023-01-08] MEDS: Gabapentin 300 MG Capsule PO (08:15)
[2023-01-08 08:39] LABS: Bedside Glucose 74 mg/dL (74-106)
[2023-01-08] MEDS: Metoprolol Tartrate 25 MG Tablet 75 MG PO (10:29)
[2023-01-08] MEDS: Atorvastatin Calcium 40 MG Tablet PO (10:29)
[2023-01-08] MEDS: Losartan Potassium 25 MG Tablet PO (10:29)
[2023-01-08] MEDS: hydroCHLOROthiazide 12.5mg 12.5 MG PO (10:29)
[2023-01-08] MEDS: busPIRone 15 MG TABLET 30 MG PO ×2 (10:30→21:50)
[2023-01-08] MEDS: Estradiol 1 MG Tablet 2 MG PO (10:30)
[2023-01-08] MEDS: Montelukast 10 MG Tablet PO (10:30)
[2023-01-08] MEDS: clonazePAM 0.5 MG Tablet PO ×2 (10:30→21:51)
[2023-01-08] MEDS: Pantoprazole Sodium 40 MG Tablet PO (10:30)
[2023-01-08 12:05] LABS: Bedside Glucose 101 mg/dL (74-106)
--- NOTE | 2023-01-08 12:09 | ADDICTION ---
This ticket writer met with PT to conduct ASAM, MSE, AUDIT, DUDIT assessments and to plan for d/c. PT A+Ox4 and participated actively. All assessments completed and placed in PT's chart. PT plans to f/u with [facility] at [facility] for follow-up in patient treatment services if approved. [facility] will transport to treatment if pt is placed.
--- NOTE | 2023-01-08 15:08 | PCM.PN.HOSP ---
Reason for Visit Reason for Visit: Diagnoses Alcohol use, unspecified with withdrawal, unspecified (01/08/23) Subjective Subjective Follow-up for acute alcohol withdrawal syndrome. Objective Data Objective Data Vital Signs: Vital Signs Temp Pulse Resp BP Pulse Ox O2 Del Method 98.0 F 85 18 146/83 H 97 Room Air 01/08/23 11:39 01/08/23 11:39 01/08/23 11:39 01/08/23 11:39 01/08/23 11:39 01/08/23 11:39 Oxygen Delivery Method Room Air Weight: 130 lb 1.164 oz Body Mass Index (BMI) 23.8 Intake & Output: Intake and Output for Last 24 Hours 01/06/23 01/07/23 01/08/23 23:59 23:59 23:59 Intake Total 400 / 400 Balance 400 / 400 Lab / Micro Data 01/08/23 05:45 01/08/23 05:45 Labs: Laboratory Results - last 24 hr 01/08/23 02:00: Urine Opiates Screen NEGATIVE, Urine Methadone Screen NEGATIVE, Ur Barbiturates Screen NEGATIVE, Ur Phencyclidine Scrn NEGATIVE, Ur Amphetamines Screen NEGATIVE, MDMA (Ecstasy) Screen NEGATIVE, U Benzodiazepines Scrn NEGATIVE, Urine Cocaine Screen POSITIVE H, U Cannabinoids Screen NEGATIVE, Ur Drug Screen Comment 01/08/23 05:45: WBC 5.6, RBC 4.01 L, Hgb 11.5 L, Hct 33.0 L, MCV 82.3, MCH 28.7, MCHC 34.8, RDW Std Deviation 39.0, RDW Coeff of Ross 12.9, Plt Count 285, MPV 8.7, Immature Gran % (Auto) 0.200, Neut % (Auto) 40.1 L, Lymph % (Auto) 52.1 H, [place] % (Auto) 4.5, Eos % (Auto) 2.7, Baso % (Auto) 0.4, Absolute Neuts (auto) 2.3, Absolute Lymphs (auto) 2.91, Nucleated RBC % 0, Sodium 131 L, Potassium 3.0 L, Chloride 96 L, Carbon Dioxide 21.0, Anion Gap 14, BUN 8, Creatinine 1.09 H, Estim Creat Clear Calc 42.32, Est GFR (MDRD) Af Amer 65, Est GFR (MDRD) Non-Af 54 L, BUN/Creatinine Ratio 7.3 L, Glucose 75, Calcium 8.0 L, Phosphorus 2.8, Magnesium 1.6, Total Bilirubin 0.30, AST 23, ALT 23, Alkaline Phosphatase 75, Total Protein 6.9, Albumin 3.4, Globulin 3.5, Albumin/Globulin Ratio 1.0, Ethyl Alcohol 65.0 01/08/23 08:02: POC Glucose 74 01/08/23 11:42: POC Glucose 101 Physical Exam Narrative Seen and examined. Patient drinks 6 bottles of beer every day with intermittent 2-3 shots of whiskey, periodically about 2-3 times a week. She has also used crack cocaine for 2-3 times in the last month. Smokes less than a pack per day. History of asthma since teenage. Physical exam General: Alert, Oriented x3, Cooperative HEENT: Atraumatic, PERRLA, EOMI, Normocephalic Oral: Oral mucosa dry. No Gingival or Mucosal Lesions/ Ulcerations Neck: Supple, No JVD, Negative Carotid Bruits Lungs: Air entry diminished in bilateral lung bases. Bilateral wheezing. Cardiovascular: Regular rate, Regular Rhythm, Normal S1, Normal S2, No murmurs Abdomen: Bowel Sounds Present, Soft, Non Tender, Non-Distended : No renal angle tenderness. No suprapubic tenderness. Extremities: No edema, Capillary Refill Less than 3 Seconds Skin: No rashes, No breakdown Musculoskeletal: No Tenderness to Palpation of Joints or Extremities Neurological: Cranial nerves II-XII grossly intact, DTR 2+/4. No acute focal neurological deficit. No seizure-like movements. Psych/Mental Status: Visual hallucinations. No seizure Assessment & Plan Assessment/Plan (1) Alcohol withdrawal: QUALIFIERS: Complication of substance-induced condition: with perceptual disturbance Qualified Code(s): F10.932 - Alcohol use, unspecified with withdrawal with perceptual disturbance PLAN: Plan The patient is a 61 y/o F with multiple comorbidities admitted for acute alcohol withdrawal syndrome. Patient admitted with anxiety, tremors, restlessness nausea vomiting. Last admission for detoxification 11/2022. #1. Acute alcohol withdrawal syndrome with history of chronic alcohol use dependence, tolerance and relapse: Patient is being admitted to [facility] floor. Patient on phenobarbital based order set along with other adjunctive medications gabapentin, Bentyl, Vistaril, Klonopin as needed for alcohol withdrawal symptom control. CIWA monitor. ocean freight manager consulted. Oral and IV Ativan as needed for CIWA protocol #2. Polysubstance abuse: Patient reporting history also of crack cocaine, last usage 4 days prior, tox positive of cocaine. Serum alcohol level 65. #3. Hypertension: continue home diltiazem, hydrochlorothiazide, metoprolol home regimen, current IV hydralazine. #4. Hyperlipidemia: continue home statin therapy. #5. Anxiety depression/bipolar disorder/PTSD: continue patient home sertraline, olanzapine, mirtazapine, hydroxyzine, clonazepam, BuSpar home regimen with recommended aggressive outpatient follow-up with psychiatry/psychology is likely contributing to substance abuse. #6. Diabetes mellitus type II: 06/08/22 5.8% prediabetic level, will hold oral metformin, ADA diet, accu checks w/ ISS. #7. GERD: continue patient on PPI. #8. Chronic nicotine use and smoking with history of chronic mild persistent asthma: On a scheduled Pulmicort elation. Albuterol inhaler as needed DVT prophylaxis: Low risk. Charges/Coding Visit Charges Inpatient E&M: 78691 Subs Hosp L2
--- NOTE | 2023-01-08 15:13 | CHAPLAIN ---
Type of Pastoral Visit _x__ Initial Visit ___ Follow-up Visit ___ On-call Visit ___ General Patient Visit ___ Spiritual Assessment ___ Family Conference ___ Bereavement ___ Rapid Response ___ Code Blue ___ Other (describe below) Pastoral Care Referral From _x__ Patient ___ Family ___ Nurse ___ Physician ___ Livestock Buyer ___ Business Development Director ___ Other (describe below) Sacrament/Intervention _x__ Active listening ___ Anointing ___ Mormon ___ Bereavement ___ Communion _x__ Coni exploration ___ _x__ Life review _x__ Prayer ___ Reconciliation ___ Sacrament of Sick _x__ Supportive presence ___ Wedding ___ Other (describe below) Pastoral Comments patient is expressive in her self appraisal of need for change in her life; pt acknowledges early life of involvement with spiritism and good support; pt states that last decade of her life she has been isolated from people and has lost her closet friend/sister in ; pt acknowledges spiritual needs in her life and requests prayers and a Bible; pt is talkative and is given time for listening and reflection;
[2023-01-08 16:32] LABS: Bedside Glucose 129 mg/dL (74-106)
[2023-01-08] MEDS: Budesonide Respules 0.5 MG/2 ML AMPUL.NEB. INHALATION (19:24)
[2023-01-08] MEDS: Dicyclomine 10 MG Capsule 20 MG PO (19:57)
[2023-01-08] MEDS: Ondansetron 8 MG Tablet PO (19:58)
[2023-01-08] MEDS: dilTIAZem CD 180 MG Capsule PO (21:51)
[2023-01-08] MEDS: Mirtazapine 30 MG Tablet PO (21:51)
[2023-01-08] MEDS: OLANZapine 2.5 MG Tablet PO (21:52)
[2023-01-08] MEDS: Sertraline 100 MG Tablet PO (21:52)
[2023-01-08 23:45] LABS: Bedside Glucose 112 mg/dL (74-106)
[2023-01-09] VITALS (8 sets, daily range): BP systolic 124–161; BP diastolic 58–97; PULSE 79–91; RESP 14–18; TEMP 36.4–37; O2SAT 97–100
[2023-01-09] MEDS: Phenobarbital 32.4 MG Tablet 64.8 MG PO ×6 (00:54→20:51)
[2023-01-09] MEDS: traZODone 100 MG Tablet PO (00:56)
[2023-01-09 06:31] LABS: Bedside Glucose 127 mg/dL (74-106)
[2023-01-09] MEDS: Losartan Potassium 25 MG Tablet PO (08:41)
[2023-01-09] MEDS: Thiamine Hydrochloride 100 MG Tablet PO (08:41)
[2023-01-09] MEDS: Metoprolol Tartrate 25 MG Tablet 75 MG PO (08:42)
[2023-01-09] MEDS: Folic Acid 1 MG Tablet PO (08:42)
[2023-01-09] MEDS: Estradiol 1 MG Tablet 2 MG PO (08:42)
[2023-01-09] MEDS: hydroCHLOROthiazide 12.5mg 12.5 MG PO (08:42)
[2023-01-09] MEDS: Montelukast 10 MG Tablet PO (08:42)
[2023-01-09] MEDS: busPIRone 15 MG TABLET 30 MG PO ×2 (08:43→21:03)
[2023-01-09] MEDS: Pantoprazole Sodium 40 MG Tablet PO (08:43)
[2023-01-09] MEDS: Atorvastatin Calcium 40 MG Tablet PO (08:43)
[2023-01-09] MEDS: Aspirin 81 MG TAB.CHEW PO (08:44)
[2023-01-09 12:24] LABS: Bedside Glucose 149 mg/dL (74-106)
[2023-01-09] MEDS: Glucerna Shake 120 ML LIQUID PO (12:39)
[2023-01-09 12:57] LABS: Anion Gap 3 (5-15); BUN 15 mg/dL (7-18); BUN/Creat Ratio 12.5 RATIO (10-20); Chloride 108 mmol/L (98-107); EST Glomerular Filtration Rate 48 mL/min (>60); Est Glom Filt Rate - Afr Amer 59 mL/min (>60); Estimated Creatinine Clearance 38.44 ml/min; Glucose 113 mg/dL (74-106); Magnesium 1.7 mg/dL (1.6-2.6); Phosphorus 3.1 mg/dL (2.5-4.9); Potassium 3.5 mmol/L (3.5-5.1); Sodium Level 139 mmol/L (136-145)
--- NOTE | 2023-01-09 14:22 | PN.HOSP_ITS ---
Reason for Visit Reason for Visit: Diagnoses Alcohol use, unspecified with withdrawal with perceptual disturbance (01/08/23) Alcohol use, unspecified with withdrawal, unspecified (01/08/23) Objective Data Objective Data Vital Signs: Vital Signs Temp Pulse Resp BP Pulse Ox O2 Del Method 98.2 F 88 18 124/58 H 97 Room Air 01/09/23 09:00 01/09/23 09:00 01/09/23 09:00 01/09/23 09:00 01/09/23 09:00 01/09/23 09:00 Oxygen Delivery Method Room Air Weight: 130 lb 1.164 oz Body Mass Index (BMI) 23.8 Intake & Output: Intake and Output for Last 24 Hours 01/07/23 01/08/23 01/09/23 23:59 23:59 23:59 Intake Total 2500 / 2500 750 / 750 Balance 2500 / 2500 750 / 750 Lab / Micro Data 01/08/23 05:45 01/09/23 11:40 Labs: Laboratory Results - last 24 hr 01/08/23 16:10: POC Glucose 129 H 01/08/23 21:54: POC Glucose 112 H 01/09/23 05:34: POC Glucose 127 H 01/09/23 11:40: Sodium 139, Potassium 3.5, Chloride 108 H, Carbon Dioxide 28.0, Anion Gap 3 L, BUN 15, Creatinine 1.20 H, Estim Creat Clear Calc 38.44, Est GFR (MDRD) Af Amer 59 L, Est GFR (MDRD) Non-Af 48 L, BUN/Creatinine Ratio 12.5, Glucose 113 H, Calcium 9.0, Phosphorus 3.1, Magnesium 1.7 01/09/23 12:06: POC Glucose 149 H Physical Exam Narrative Seen and examined. Patient drinks 6 bottles of beer every day with intermittent 2-3 shots of whiskey, periodically about 2-3 times a week. She has also used crack cocaine for 2-3 times in the last month. Smokes less than a pack per day. History of asthma since teenage. Physical exam General: Alert, Oriented x3, Cooperative HEENT: Atraumatic, PERRLA, EOMI, Normocephalic Oral: Oral mucosa dry. No Gingival or Mucosal Lesions/ Ulcerations Neck: Supple, No JVD, Negative Carotid Bruits Lungs: Air entry diminished in bilateral lung bases. Bilateral wheezing improved. Cardiovascular: Regular rate, Regular Rhythm, Normal S1, Normal S2, No murmurs Abdomen: Bowel Sounds Present, Soft, Non Tender, Non-Distended : No renal angle tenderness. No suprapubic tenderness. Extremities: No edema, Capillary Refill Less than 3 Seconds Skin: No rashes, No breakdown Musculoskeletal: No Tenderness to Palpation of Joints or Extremities Neurological: Cranial nerves II-XII grossly intact, DTR 2+/4. No acute focal neurological deficit. No seizure-like movements. Psych/Mental Status: Visual hallucinations. No seizure Assessment & Plan Assessment/Plan (1) Alcohol withdrawal: QUALIFIERS: Complication of substance-induced condition: with perceptual disturbance Qualified Code(s): F10.932 - Alcohol use, unspecified with withdrawal with perceptual disturbance PLAN: Plan The patient is a 61 y/o F with multiple comorbidities admitted for acute alcohol withdrawal syndrome. Patient admitted with anxiety, tremors, restlessness nausea vomiting. Last admission for detoxification 11/2022. #1. Acute alcohol withdrawal syndrome with history of chronic alcohol use dependence, tolerance and relapse: Patient is being admitted to MedSurg floor. Patient on phenobarbital based order set along with other adjunctive medications gabapentin, Bentyl, Vistaril, Klonopin as needed for alcohol withdrawal symptom control. CIWA monitor. billiard parlor manager consulted. Oral and IV Ativan as needed for CIWA protocol 01/09: Patient feels tired and weak otherwise tremors are controlled. #2. Polysubstance abuse: Patient reporting history also of crack cocaine, last usage 4 days prior, tox positive of cocaine. Serum alcohol level 65. #3. Hypertension: continue home diltiazem, hydrochlorothiazide, metoprolol home regimen, current IV hydralazine. #4. Hyperlipidemia: continue home statin therapy. #5. Anxiety depression/bipolar disorder/PTSD: continue patient home ser traline, olanzapine, mirtazapine, hydroxyzine, clonazepam, BuSpar home regimen with recommended aggressive outpatient follow-up with psychiatry/psychology is likely contributing to substance abuse. #6. Diabetes mellitus type II: 06/08/22 5.8% prediabetic level, will hold oral metformin, ADA diet, accu checks w/ ISS. #7. GERD: continue patient on PPI. #8. Chronic nicotine use and smoking with history of chronic mild persistent asthma: On a scheduled Pulmicort elation. Albuterol inhaler as needed 01/02 patient wheezing has improved on Pulmicort scheduled. DVT prophylaxis: Low risk. Charges/Coding Visit Charges Inpatient E&M: 47494 Subs Hosp L2
[2023-01-09 15:47] LABS: Bedside Glucose 154 mg/dL (74-106)
[2023-01-09] MEDS: Insulin Lispro 100 UNIT/ML INSULN.PEN SC (16:13)
[2023-01-09] MEDS: Gabapentin 300 MG Capsule PO (18:46)
[2023-01-09] MEDS: Budesonide Respules 0.5 MG/2 ML AMPUL.NEB. INHALATION (19:05)
[2023-01-09] MEDS: Sertraline 100 MG Tablet PO (21:03)
[2023-01-09] MEDS: dilTIAZem CD 180 MG Capsule PO (21:03)
[2023-01-09] MEDS: Mirtazapine 30 MG Tablet PO (21:03)
[2023-01-09] MEDS: OLANZapine 2.5 MG Tablet PO (21:04)
[2023-01-09] MEDS: clonazePAM 0.5 MG Tablet PO (21:04)
[2023-01-10 00:03] LABS: Bedside Glucose 117 mg/dL (74-106)
[2023-01-10] MEDS: Phenobarbital 32.4 MG Tablet 64.8 MG PO ×4 (01:38→12:00)
[2023-01-10 01:48] VITALS: BP 144/80; PULSE 82; RESP 20; TEMP 36.7; O2SAT 98
[2023-01-10 05:14] VITALS: BP 152/82; PULSE 85; RESP 18; TEMP 36.6; O2SAT 97
[2023-01-10 07:25] LABS: Bedside Glucose 99 mg/dL (74-106)
[2023-01-10 08:15] VITALS: O2SAT 95
[2023-01-10 08:32] VITALS: BP 151/79; PULSE 92; RESP 16; TEMP 36.6; O2SAT 98
[2023-01-10 08:40] VITALS: PULSE 92
[2023-01-10] MEDS: hydrOXYzine PAM 25 MG Capsule 50 MG PO (08:40)
[2023-01-10] MEDS: clonazePAM 0.5 MG Tablet PO (08:40)
[2023-01-10] MEDS: Thiamine Hydrochloride 100 MG Tablet PO (08:40)
[2023-01-10] MEDS: Metoprolol Tartrate 25 MG Tablet 75 MG PO (08:40)
[2023-01-10] MEDS: Pantoprazole Sodium 40 MG Tablet PO (08:41)
[2023-01-10] MEDS: Aspirin 81 MG TAB.CHEW PO (08:41)
[2023-01-10] MEDS: Folic Acid 1 MG Tablet PO (08:41)
[2023-01-10] MEDS: Montelukast 10 MG Tablet PO (08:41)
[2023-01-10] MEDS: hydroCHLOROthiazide 12.5mg 12.5 MG PO (08:41)
[2023-01-10] MEDS: Losartan Potassium 25 MG Tablet PO (08:41)
[2023-01-10] MEDS: busPIRone 15 MG TABLET 30 MG PO (08:42)
[2023-01-10] MEDS: Estradiol 1 MG Tablet 2 MG PO (08:43)
[2023-01-10] MEDS: Atorvastatin Calcium 40 MG Tablet PO (08:43)
--- NOTE | 2023-01-10 10:39 | DCINST_ITS ---
Discharge Instructions Diet Discharge Diet: No restrictions Activity Discharge Activity: Return to Normal Activity Weight Bearing Status: Weight bearing as tolerated Dressing / Incision Call your doctor if you observe: Fever of 101 or Higher, Coldness, Increased Pain, Numbness or Tingling, Change in Color, Inability to urinate, Inability to have a bowel movement, Using more than 1 pad per hour, Shortness of breath, Dizziness, Fainting spells, Swelling in the ankles, Chest pain, Prolonged hiccupping, Increased palpitations (irregular heartbeat) and Calf discomfort Follow Up Care When: IN 2 WEEKS Test Results: Test results from this visit will be discussed in further detail at your follow- up appointment, if applicable. Discharge Plan Admission Admit Date/Time: 01/08/23 05:39 Primary Reason for Your Visit: Acute alcohol withdrawal syndrome Attending Provider: Martin Oh Primary Care Provider: Rach Gaona Consulting Providers: Francesca Naidu Discharge Orders/Prescriptions Prescriptions: New thiamine HCl (vitamin B1) [Vitamin B-1] 100 mg Tablet 100 mg PO DAILYCM Qty: 30 2RF nicotine 21 mg/24 hr Patch 24 Hour 21 mg transdermal DAILY 28 Days Qty: 28 0RF folic acid 1 mg Tablet 1 mg PO DAILY@0800 Qty: 30 2RF Continued buspirone 30 mg tablet 30 mg PO BID Qty: 30 2RF clonazepam 0.5 mg tablet 0.5 mg PO BID 30 Days Qty: 60 1RF sertraline 100 mg tablet 100 mg PO QHS 90 Days Qty: 90 2RF tizanidine [Zanaflex] 4 MG tablet 6 mg PO QHS aspirin 81 MG tablet,chewable 81 mg PO DAILY estradiol [Estrace] 2 MG tablet 2 mg PO DAILY montelukast 10 MG tablet 10 mg PO DAILY diclofenac sodium 100 GM gel 1 applicatio TP DAILY PRN PRN (Reason: arthritis) diphenhydramine HCl 25 MG capsule 25 mg PO TID PRN PRN (Reason: Itching) hydroxyzine HCl 25 MG tablet 25 - 50 mg PO Q6H PRN (Reason: anxiety/itching) pantoprazole 40 MG tablet 40 mg PO DAILY Qty: 30 0RF atorvastatin 40 MG tablet 40 mg PO DAILY Qty: 30 0RF losartan 25 mg tablet 25 mg PO DAILY metoprolol tartrate 25 MG tablet 75 mg PO DAILY albuterol sulfate [Ventolin HFA] 1 INHALER inhaler 2 puff inhalation Q4H PRN PRN (Reason: Wheezing) Qty: 1 0RF ondansetron HCl 4 mg tablet 4 mg PO Q6H PRN (Reason: nausea and vomiting) Qty: 20 0RF hydrochlorothiazide 12.5 mg capsule 12.5 mg PO DAILY Patient Comments: TAKE 1 CAPSULE BY MOUTH ONCE DAILY metformin 500 mg tablet extended release 24 hr 500 mg PO BIDCM Patient Comments: TAKE 1 TABLET BY MOUTH TWICE A DAY WITH MEALS diltiazem HCl 180 mg PO/SL QHS hydrocodone-acetaminophen 5-325 mg tablet 1 tab PO Q4H PRN PRN (Reason: Pain) 3 Days Qty: 10 0RF mirtazapine 30 mg tablet See Rx Instructions .ROUTE .COMPLEX Qty: 90 1RF Dose Instruction: TAKE 1 TABLET BY MOUTH EVERY DAY AT BEDTIME Rx Instructions: TAKE 1 TABLET BY MOUTH EVERY DAY AT BEDTIME olanzapine 2.5 mg tablet 2.5 mg PO QHS 90 Days Qty: 90 1RF Referrals / Follow Up: Morales Corley DO [Med Staff - Active Staff] - Within 1 Month (For asthma history/PFT evaluation) Rach Gaona MD [Primary Care Provider] - Disposition Disposition (needs filled in before D/C Order can be placed): Home, Self Care
--- NOTE | 2023-01-10 12:06 | DS.PCM_ITS ---
Providers Date of Admission: 01/08/23 Date of Discharge: 01/10/23 Primary Care Physician: Dr. Rach Gaona MD Reason For Visit: ETOH WITHDRAWAL Diagnosis Discharge Diagnosis (1) Alcohol withdrawal: Status: Acute Code(s): F10.939 - Alcohol use, unspecified with withdrawal, unspecified Qualifiers: Complication of substance-induced condition: with perceptual disturbance Qualified Code(s): F10.932 - Alcohol use, unspecified with withdrawal with perceptual disturbance Plan The patient is a 61 y/o F with multiple comorbidities admitted for acute alcohol withdrawal syndrome. Patient admitted with anxiety, tremors, restlessness nausea vomiting. Last admission for detoxification 11/2022. #1. Acute alcohol withdrawal syndrome with history of chronic alcohol use dependence, tolerance and relapse: Patient is being admitted to MedSur floor. Patient on phenobarbital based order set along with other adjunctive medications gabapentin, Bentyl, Vistaril, Klonopin as needed for alcohol withdrawal symptom control. CIWA monitor. projects manager consulted. Oral and IV Ativan as needed for CIWA protocol 01/09: Patient feels tired and weak otherwise tremors are controlled. 01/11: Alcohol withdrawal syndrome resolved. #2. Polysubstance abuse: Patient reporting history also of crack cocaine, last usage 4 days prior, tox positive of cocaine. Serum alcohol level 65. #3. Hypertension: continue home diltiazem, hydrochlorothiazide, metoprolol home regimen, current IV hydralazine. #4. Hyperlipidemia: continue home statin therapy. #5. Anxiety depression/bipolar disorder/PTSD: continue patient home sertraline, olanzapine, mirtazapine, hydroxyzine, clonazepam, BuSpar home regim en with recommended aggressive outpatient follow-up with psychiatry/psychology is likely contributing to substance abuse. #6. Diabetes mellitus type II: 06/08/22 5.8% prediabetic level, will hold oral metformin, ADA diet, accu checks w/ ISS. #7. GERD: continue patient on PPI. #8. Chronic nicotine use and smoking with history of chronic mild persistent asthma: On a scheduled Pulmicort elation. Albuterol inhaler as needed 01/02 patient wheezing has improved on Pulmicort scheduled. 01/03: Patient has albuterol inhaler as needed. Does not have maintenance inhaler. Advised follow-up in pulmonary clinic in [address] Corley. DVT prophylaxis: Low risk. Discharge medication reconciliation done. Discharge follow-up instructions completed. Discharge process discussed with the patient and all questions were answered to patient's satisfaction. Prescription for folic acid, thiamine cathryn farida patch given. Total time spent, exact 35 minutes on discharge meds reconciliation, examination, coordination of care with nurses and ancillary staff, review of imaging and blood test and discussion with the patient on follow-up instructions. Medications at Discharge Home Medications aspirin 81 mg chewable tablet 81 mg PO DAILY HEART 08/15/13 estradiol 2 mg tablet (Estrace) 2 mg PO DAILY hormones 08/15/13 montelukast 10 mg tablet 10 mg PO DAILY seasonal 08/15/13 tizanidine 4 mg tablet (Zanaflex) 6 mg PO QHS muscle spasms 08/15/13 diclofenac sodium 3 % topical gel 1 applicatio TP DAILY PRN PRN arthritis 06/11/20 diphenhydramine HCl 25 mg capsule 25 mg PO TID PRN PRN Itching 06/11/20 hydroxyzine HCl 25 mg tablet 25 - 50 mg PO Q6H PRN anxiety/itching 06/11/20 atorvastatin 40 mg tablet 40 mg PO DAILY cholesterol #30 tabs 06/12/20 pantoprazole 40 mg tablet,delayed release 40 mg PO DAILY stomach acid #30 tabs 06/12/20 albuterol sulfate 90 mcg/actuation aerosol inhaler (Ventolin HFA) 2 puff inhalation Q4H PRN PRN Wheezing ##1 03/25/21 losartan 25 mg tablet 25 mg PO DAILY htn 03/25/21 metoprolol tartrate 25 mg tablet 75 mg PO DAILY blood pressu 03/25/21 ondansetron HCl 4 mg tablet 4 mg PO Q6H PRN nausea and vomiting #20 tabs 01/31/22 diltiazem HCl 180 mg PO/SL QHS htn 06/06/22 hydrochlorothiazide 12.5 mg capsule 12.5 mg PO DAILY HTN 06/06/22 metformin 500 mg tablet,extended release 24 hr 500 mg PO BIDCM DM 06/06/22 buspirone 30 mg tablet 30 mg PO BID bipolar/depression #30 tabs 10/06/22 clonazepam 0.5 mg tablet 0.5 mg PO BID anxiety 30 days #60 tabs 10/06/22 sertraline 100 mg tablet 100 mg PO QHS sleep a 90 days #90 tabs 10/06/22 mirtazapine 30 mg tablet See Rx Instructions .Route .COMPLEX sleep aide #90 tabs 10/13/22 hydrocodone-acetaminophen 5-325mg 5mg-325mg 1 tab PO Q4H PRN PRN Pain 3 days #10 TABLETS 12/05/22 olanzapine 2.5 mg tablet 2.5 mg PO QHS MOOD 90 days #90 tabs 12/08/22 folic acid 1 mg tablet 1 mg PO DAILY@0800 #30 tabs 01/10/23 nicotine 21 mg/24 hr daily transdermal patch 21 mg transdermal DAILY 28 days #28 ea 01/10/23 thiamine HCl (vitamin B1) 100 mg tablet (Vitamin B-1) 100 mg PO DAILYCM #30 tabs 01/10/23 Physical Exam Narrative Seen and examined. Patient drinks 6 bottles of beer every day with intermittent 2-3 shots of whiskey, periodically about 2-3 times a week. She has also used crack cocaine for 2-3 times in the last month. Smokes less than a pack per day. History of asthma since teenage. Physical exam General: Alert, Oriented x3, Cooperative HEENT: Atraumatic, PERRLA, EOMI, Normocephalic Oral: Oral mucosa dry. No Gingival or Mucosal Lesions/ Ulcerations Neck: Supple, No JVD, Negative Carotid Bruits Lungs: Air entry diminished in bilateral lung bases. Bilateral wheezing has much improved. Cardiovascular: Regular rate, Regular Rhythm, Normal S1, Normal S2, No murmurs Abdomen: Bowel Sounds Present, Soft, Non Tender, Non-Distended : No renal angle tenderness. No suprapubic tenderness. Extremities: No edema, Capillary Refill Less than 3 Seconds Skin: No rashes, No breakdown Musculoskeletal: No Tenderness to Palpation of Joints or Extremities Neurological: Cranial nerves II-XII grossly intact, DTR 2+/4. No acute focal neurological deficit. No seizure-like movements. Psych/Mental Status: Visual hallucinations. Weight / BMI Weight Weight: 130 lb 1.164 oz Body Mass Index (BMI) 23.8 ABG / Lab / Microbiology Data 01/08/23 05:45 01/09/23 11:40 Laboratory: Laboratory Results - last 24 hr 01/09/23 11:40: Sodium 139, Potassium 3.5, Chloride 108 H, Carbon Dioxide 28.0, Anion Gap 3 L, BUN 15, Creatinine 1.20 H, Estim Creat Clear Calc 38.44, Est GFR (MDRD) Af Amer 59 L, Est GFR (MDRD) Non-Af 48 L, BUN/Creatinine Ratio 12.5, Glucose 113 H, Calcium 9.0, Phosphorus 3.1, Magnesium 1.7 01/09/23 12:06: POC Glucose 149 H 01/09/23 15:29: POC Glucose 154 H 01/09/23 21:00: POC Glucose 117 H 01/10/23 05:10: POC Glucose 99 D/C Instructions Discharge Diet: No restrictions Weight Bearing Status: Weight bearing as tolerated Call your doctor if you observe: Fever of 101 or Higher, Coldness, Increased Pain, Numbness or Tingling, Change in Color, Inability to urinate, Inability to have a bowel movement, Using more than 1 pad per hour, Shortness of breath, Dizziness, Fainting spells, Swelling in the ankles, Chest pain, Prolonged hiccupping, Increased palpitations (irregular heartbeat) and Calf discomfort When: IN 2 WEEKS Meaningful Use Info Meaningful Use Diagnoses (Choose all that apply): None applicable Discharge Plan Admission Admit Date/Time: 01/08/23 05:39 Primary Reason for Your Visit: Acute alcohol withdrawal syndrome Attending Provider: Martin Oh Primary Care Provider: Rach Gaona Consulting Providers: Francesca Naidu Discharge Orders/Prescriptions Prescriptions: New thiamine HCl (vitamin B1) [Vitamin B-1] 100 mg Tablet 100 mg PO DAILYCM Qty: 30 2RF nicotine 21 mg/24 hr Patch 24 Hour 21 mg transdermal DAILY 28 Days Qty: 28 0RF folic acid 1 mg Tablet 1 mg PO DAILY@0800 Qty: 30 2RF Continued buspirone 30 mg tablet 30 mg PO BID Qty: 30 2RF clonazepam 0.5 mg tablet 0.5 mg PO BID 30 Days Qty: 60 1RF sertraline 100 mg tablet 100 mg PO QHS 90 Days Qty: 90 2RF tizanidine [Zanaflex] 4 MG tablet 6 mg PO QHS aspirin 81 MG tablet,chewable 81 mg PO DAILY estradiol [Estrace] 2 MG tablet 2 mg PO DAILY montelukast 10 MG tablet 10 mg PO DAILY diclofenac sodium 100 GM gel 1 applicatio TP DAILY PRN PRN (Reason: arthritis) diphenhydramine HCl 25 MG capsule 25 mg PO TID PRN PRN (Reason: Itching) hydroxyzine HCl 25 MG tablet 25 - 50 mg PO Q6H PRN (Reason: anxiety/itching) pantoprazole 40 MG tablet 40 mg PO DAILY Qty: 30 0RF atorvastatin 40 MG tablet 40 mg PO DAILY Qty: 30 0RF losartan 25 mg tablet 25 mg PO DAILY metoprolol tartrate 25 MG tablet 75 mg PO DAILY albuterol sulfate [Ventolin HFA] 1 INHALER inhaler 2 puff inhalation Q4H PRN PRN (Reason: Wheezing) Qty: 1 0RF ondansetron HCl 4 mg tablet 4 mg PO Q6H PRN (Reason: nausea and vomiting) Qty: 20 0RF hydrochlorothiazide 12.5 mg capsule 12.5 mg PO DAILY Patient Comments: TAKE 1 CAPSULE BY MOUTH ONCE DAILY metformin 500 mg tablet extended release 24 hr 500 mg PO BIDCM Patient Comments: TAKE 1 TABLET BY MOUTH TWICE A DAY WITH MEALS diltiazem HCl 180 mg PO/SL QHS hydrocodone-acetaminophen 5-325 mg tablet 1 tab PO Q4H PRN PRN (Reason: Pain) 3 Days Qty: 10 0RF mirtazapine 30 mg tablet See Rx Instructions .ROUTE .COMPLEX Qty: 90 1RF Dose Instruction: TAKE 1 TABLET BY MOUTH EVERY DAY AT BEDTIME Rx Instructions: TAKE 1 TABLET BY MOUTH EVERY DAY AT BEDTIME olanzapine 2.5 mg tablet 2.5 mg PO QHS 90 Days Qty: 90 1RF Referrals / Follow Up: Morales Corley DO [Med Staff - Active Staff] - Within 1 Month (For asthma history/PFT evaluation) Rach Gaona MD [Primary Care Provider] - Disposition Disposition (needs filled in before D/C Order can be placed): Home, Self Care
--- NOTE | 2023-01-10 12:37 | NURSING ---
talked with Marty VAZQUEZ navigator whom called in to clarify discharge plans. Aware patient has verbalized to [facility] graduation coach as well as roll finisher nursing staff that she does not want to go residential. Aware per Marty this is the pattern of behavior for patient of requesting inpatient treatment on admission then leaving with outpatient plan but not following up. stated conversation to be had with patient that she will not be able to return again to [facility] program unless she going inpatient. Discussed above with Primary RN Sofia whom states pt also verbalized her that her plans are to follow up with [facility] outpatient. Aware Sofia to have conversation with patient.
--- NOTE | 2023-01-10 12:43 | CASEMGMT ---
Social Work SW updated by RNCM that the patient's MD was inquiring about D/C plan as patient will be up for d/c. SW contacted treatment navigator and inquired about progress towards referral for residential treatment. [place] to inquire and contact SW. SW received call from treatment navigator reporting the patient was screened yesterday for women's residential admission, however, the patient declined. Patient reported her plan was to follow up with services on an outpatient basis and will contact [facility] in the future if interested in residential treatment. SATNAM met with patient and introduced self and role as [facility] SW. Patient seated on hospital bed and agreeable to speak with SW. SW inquired about d/c plan. Patient verified she declined residential and planned to follow up with outpatient services. Patient also reports interest in pursuing services with [facility] and [facility], no other needs voiced. Patient states her significant other will transport patient home at d/c. MD Oh updated of plan via backline. Plan: d/c home, patient to follow up with [facility] for outpatient services Audra FRANCO, SHIN
[2023-01-10 17:04] LABS: Bedside Glucose 131 mg/dL (74-106)
== END 2023-01-10 13:49 | disposition home or self-care (01) | DRG 897 ==
LOC: ED 05:38 → MS3 05:52
PROVIDERS: Admitting Provider Family Medicine; Emergency Provider Emergency Medicine; PCP Internal Medicine; Visit Provider Internal Medicine
DX: F10.232 Alcohol dependence with withdrawal with perceptual disturbance (principal); F14.19 Cocaine abuse with unspecified cocaine-induced disorder; E11.9 Type 2 diabetes mellitus without complications; F31.9 Bipolar disorder, unspecified; I10 Essential (primary) hypertension; E78.5 Hyperlipidemia, unspecified; F41.9 Anxiety disorder, unspecified; F17.210 Nicotine dependence, cigarettes, uncomplicated; K21.9 Gastro-esophageal reflux disease without esophagitis; M79.7 Fibromyalgia; M54.9 Dorsalgia, unspecified; Z79.82 Long term (current) use of aspirin; F43.10 Post-traumatic stress disorder, unspecified; Z79.84 Long term (current) use of oral hypoglycemic drugs; G89.29 Other chronic pain; Y90.3 Blood alcohol level of 60-79 mg/100 ml
CPT/HCPCS: 36415; 80048; 80053; 80307; 82077; 82962; 83735; 84100; 85025; 94640; 97802; 99283; J7030; J7120; J2405

== ENCOUNTER 2023-03-19 12:28 | Emergency (ER) | payer OTHER, SELFPAY ==
[2023-03-19 12:29] VITALS: BP 125/77; PULSE 86; RESP 15; TEMP 36.4; O2SAT 100; BMI 23.2
--- NOTE | 2023-03-19 14:36 | EDS_ITS ---
HPI History of Present Illness Chief Complaint: Overdose Informant: patient Onset/Context/Timing Onset: Today Context: Sudden Onset Timing: Continuous Worsened by: Nothing Relieved by: Nothing Narrative Narrative: Patient presents because she thinks she may have accidentally taken her daily medications twice this morning. Patient states she normally takes sertraline 200 mg, metoprolol 75 mg, Protonix 40 mg, buspirone 30 mg, amlodipine 5 mg, metformin 500 mg, and hydroxyzine 25 mg. Patient denies any symptoms currently, patient states she contacted her primary care physician's office and was referred to the emergency department for evaluation. [facility] Medical History Anxiety and depression Bipolar 1 disorder Chronic alcoholism Chronic back pain Fibromyalgia GERD (gastroesophageal reflux disease) History of hypertension Hypertension Hypertension Osteoporosis PTSD (post-traumatic stress disorder) Smoker Substance abuse Home Medications estradiol 2 mg tablet (Estrace) 2 mg PO DAILY hormones 08/15/13 [History Last Taken 06/06/22] montelukast 10 mg tablet 10 mg PO DAILY seasonal 08/15/13 [History Last Taken 06/06/22] tizanidine 4 mg tablet (Zanaflex) 6 mg PO QHS muscle spasms 08/15/13 [History Last Taken 06/05/22] diclofenac sodium 3 % topical gel 1 applicatio TP DAILY PRN PRN arthritis 06/11/20 [History Last Taken 06/06/22] diphenhydramine HCl 25 mg capsule 25 mg PO TID PRN PRN Itching 06/11/20 [History Last Taken 06/10/20] hydroxyzine HCl 25 mg tablet 25 - 50 mg PO Q6H PRN anxiety/itching 06/11/20 [History Last Taken 06/06/22] pantoprazole 40 mg tablet,delayed release 40 mg PO DAILY stomach acid #30 tabs 06/12/20 [Rx Last Taken 06/05/22] albuterol sulfate 90 mcg/actuation aerosol inhaler (Ventolin HFA) 2 puff inhalation Q4H PRN PRN Wheezing ##1 03/25/21 [Rx Last Taken 2 Days Ago ~06/04/22] losartan 25 mg tablet 25 mg PO DAILY htn 03/25/21 [History Last Taken 06/06/22] metoprolol tartrate 25 mg tablet 75 mg PO DAILY blood pressu 03/25/21 [History Last Taken 06/06/22] ondansetron HCl 4 mg tablet 4 mg PO Q6H PRN nausea and vomiting #20 tabs 01/31/22 [Rx Last Taken 06/05/22] diltiazem HCl 180 mg PO/SL QHS htn 06/06/22 [History Last Taken 06/05/22 22:00] metformin 500 mg tablet,extended release 24 hr 500 mg PO BIDCM DM 06/06/22 [History Last Taken 06/06/22] buspirone 30 mg tablet 30 mg PO BID bipolar/depression #30 tabs 10/06/22 [Rx Last Taken Unknown] mirtazapine 30 mg tablet See Rx Instructions .Route .COMPLEX sleep aide #90 tabs 10/13/22 [Rx Last Taken Unknown] olanzapine 2.5 mg tablet 10 mg PO QHS MOOD 03/19/23 [History Last Taken Unknown] sertraline 100 mg tablet 200 mg PO DAILY sleep a 03/19/23 [History Last Taken Unknown] Allergy/AdvReac Type Severity Reaction Status Date / Time Penicillins Allergy Mild Itching Verified 01/08/23 05:10 banana Allergy Food Verified 01/08/23 05:10 Allergy codeine Allergy Itching Verified 01/08/23 05:10 benzonatate AdvReac eye pain Verified 01/08/23 05:10 [From Trey Murillo] Surgical History History of bilateral breast reduction surgery History of History of hemorrhoidectomy History of hysterectomy Social History household members: none Smoking Status: Current every day smoker tobacco type: cigarettes alcohol intake: current alcohol intake frequency: 3 or more drinks per day substance use type: crack/cocaine ROS ROS ED Constitutional Constitutional ED: Denies chills or fever(s) Eyes Eyes: Denies blurry vision or change in vision ENT ENT ED: Denies rhinorrhea or sore throat Cardiovascular Cardiovascular: Denies chest pain or palpitations Respiratory/Chest Respiratory/Chest: Denies cough or dyspnea Gastrointestinal Gastrointestinal: Denies nausea or vomiting Genitourinary Genitourinary ED: Denies dysuria or hematuria Musculoskeletal Musculoskeletal: Denies back pain or neck pain Integumentary Denies abscess or rash Neurologic Neurologic: Denies headache(s) or weakness Allergic/Immunologic Allergic/Immunologic ED: Denies mouth swelling or urticaria EXAM Physical Exam Const Vital Signs: 03/19/23 12:29 03/19/23 16:29 Temperature 97.5 F L Temperature Source Temporal Pulse Rate 86 84 Respiratory Rate 15 16 Blood Pressure 125/77 H 124/74 H Blood Pressure Mean 93 90 Pulse Ox 100 98 Oxygen Delivery Method Room Air Room Air Positive well nourished and well developed General Appearance ED: well developed and NAD HEENT Reports moist mucous membranes Neck supple and no JVD Resp normal respiratory effort and clear to auscultation bilaterally Cardio regular rate and regular rhythm GI non-tender and non-distended Palpation: soft Neuro oriented x3, CN's II-XII intact bilaterally and no sensory deficits noted Sensorium / Orientation: alert Motor Exam: strength 5/5 throughout Psych mental status grossly normal MDM MDM MDM Narrative Medical decision making narrative: Differential diagnosis includes anemia, electrolyte abnormality, hypoglycemia, and dehydration. CBC will be obtained to assess for leukocytosis and anemia. Basic metabolic profile will be obtained to assess for hypoglycemia, electrolyte abnormality, and renal function. Lab Data Attestation: I reviewed the patient's lab results. Lab results narrative: She was reviewed. There is a mild anemia with a hemoglobin of 11.4 and hematocrit 35.2. Basic metabolic profile was reviewed. Creatinine was slightly elevated at 1.33. Glucose was slightly low at 68. Labs: Laboratory Results - last 24 hr 03/19/23 15:03 WBC 9.6 RBC 4.21 Hgb 11.4 L Hct 35.2 L MCV 83.6 MCH 27.1 MCHC 32.4 RDW Std Deviation 39.9 RDW Coeff of Ross 13.2 Plt Count 309 MPV 9.2 Immature Gran % (Auto) 0.400 Neut % (Auto) 55.2 Lymph % (Auto) 37.4 [place] % (Auto) 5.4 Eos % (Auto) 1.3 Baso % (Auto) 0.3 Absolute Neuts (auto) 5.3 Absolute Lymphs (auto) 3.60 Nucleated RBC % 0 Sodium 140 Potassium 4.1 Chloride 109 H Carbon Dioxide 25.0 Anion Gap 6 BUN 13 Creatinine 1.33 H Estim Creat Clear Calc 34.69 Est GFR (MDRD) Af Amer 52 L Est GFR (MDRD) Non-Af 43 L BUN/Creatinine Ratio 9.8 L Glucose 68 L Calcium 8.8 Treatment and Re-Evaluation :: Patient was advised of her findings. Patient was given a regular diet tray here. Patient was instructed to continue her medications as previously prescribed. Patient was instructed to follow-up with her primary care physician in 5 to 7 days. Patient understood and was agreeable with the plan. All questions were answered. Discharge Plan Triage Chief Complaint: Overdose ED Provider: Luis Daly Dx/Rx/DC Orders Clinical Impression: Accidental overdose, Hypoglycemia associated with type 2 diabetes mellitus Instructions: ED Hypoglycemia Oral Diabetic ..., ED Accidental Ingestion ... Prescriptions: No Action buspirone 30 mg tablet 30 mg PO BID Qty: 30 2RF tizanidine [Zanaflex] 4 MG tablet 6 mg PO QHS estradiol [Estrace] 2 MG tablet 2 mg PO DAILY montelukast 10 MG tablet 10 mg PO DAILY diclofenac sodium 100 GM gel 1 applicatio TP DAILY PRN PRN (Reason: arthritis) diphenhydramine HCl 25 MG capsule 25 mg PO TID PRN PRN (Reason: Itching) hydroxyzine HCl 25 MG tablet 25 - 50 mg PO Q6H PRN (Reason: anxiety/itching) pantoprazole 40 MG tablet 40 mg PO DAILY Qty: 30 0RF losartan 25 mg tablet 25 mg PO DAILY metoprolol tartrate 25 MG tablet 75 mg PO DAILY albuterol sulfate [Ventolin HFA] 1 INHALER inhaler 2 puff inhalation Q4H PRN PRN (Reason: Wheezing) Qty: 1 0RF ondansetron HCl 4 mg tablet 4 mg PO Q6H PRN (Reason: nausea and vomiting) Qty: 20 0RF metformin 500 mg tablet extended release 24 hr 500 mg PO BIDCM Patient Comments: TAKE 1 TABLET BY MOUTH TWICE A DAY WITH MEALS diltiazem HCl 180 mg PO/SL QHS sertraline 100 mg tablet 200 mg PO DAILY olanzapine 2.5 mg tablet 10 mg PO QHS mirtazapine 30 mg tablet See Rx Instructions .ROUTE .COMPLEX Qty: 90 1RF Dose Instruction: TAKE 1 TABLET BY MOUTH EVERY DAY AT BEDTIME Rx Instructions: TAKE 1 TABLET BY MOUTH EVERY DAY AT BEDTIME Primary Care Provider: Rach Gaona Referrals: Rach Gaona MD [Primary Care Provider] - 5-7 Days Activity Restrictions/Additional Instructions: Continue your medications as prescribed starting tomorrow. Disposition Disposition: Home, Self Care
[2023-03-19 15:13] LABS: Absolute Neutrophil Count 5.3 X10^3/uL (2.0-7.7); Basophil# 0.03 X10^3/uL; Basophil% 0.3 % (0-1); Eosinophil# 0.13 X10^3/uL; Eosinophils% 1.3 % (0-5); Hematocrit 35.2 % (37-47); Hemoglobin 11.4 g/dL (12.0-15.0); Lymphocyte % 37.4 % (19-41); Mean Corp Hgb Conc 32.4 g/dL (32-36); Mean Corpuscular Hgb 27.1 pg (27.0-32.0); Mean Corpuscular Volume 83.6 fL (81-99); Mean Platelet Vol. 9.2 fl (6.2-12.0); Monocyte# 0.52 X10^3/uL; Monocyte% 5.4 % (0-10); NRBC Flagged by Analyzer 0 % (0-5); Neutrophil # 5.31 X10^3/uL (2.7-7.7); Neutrophil % 55.2 % (47-70); Platelet Count 309 K/mm3 (150-450); RBC Distribution Width CV 13.2 % (11.6-14.6); RBC Distribution Width SD 39.9 fl (35.1-43.9); Red Blood Count 4.21 M/mm3 (4.2-5.4); White Blood Count 9.6 K/mm3 (4.4-11.0)
[2023-03-19 16:29] VITALS: BP 124/74; PULSE 84; RESP 16; O2SAT 98
[2023-03-19 16:46] LABS: Anion Gap 6 (5-15); BUN 13 mg/dL (7-18); BUN/Creat Ratio 9.8 RATIO (10-20); Calcium,Total 8.8 mg/dL (8.5-10.1); Chloride 109 mmol/L (98-107); Creatinine, Serum 1.33 mg/dL (0.55-1.02); EST Glomerular Filtration Rate 43 mL/min (>60); Est Glom Filt Rate - Afr Amer 52 mL/min (>60); Estimated Creatinine Clearance 34.69 ml/min; Glucose 68 mg/dL (74-106); Potassium 4.1 mmol/L (3.5-5.1); Sodium Level 140 mmol/L (136-145)
== END 2023-03-19 18:01 | disposition home or self-care (01) ==
PROVIDERS: Emergency Provider Emergency Medicine; PCP Internal Medicine; Visit Provider Emergency Medicine
DX: T50.911A Poisoning by multiple unspecified drugs, medicaments and biological substances, accidental (unintentional), initial encounter (principal); F14.94 Cocaine use, unspecified with cocaine-induced mood disorder; F31.9 Bipolar disorder, unspecified; E11.649 Type 2 diabetes mellitus with hypoglycemia without coma; I10 Essential (primary) hypertension; F41.9 Anxiety disorder, unspecified; M79.7 Fibromyalgia; K21.9 Gastro-esophageal reflux disease without esophagitis; M81.0 Age-related osteoporosis without current pathological fracture; F43.10 Post-traumatic stress disorder, unspecified; F17.210 Nicotine dependence, cigarettes, uncomplicated; F10.90 Alcohol use, unspecified, uncomplicated; Z79.899 Other long term (current) drug therapy; Z79.84 Long term (current) use of oral hypoglycemic drugs
CPT/HCPCS: 80048; 85025; 99282